=== PATIENT | male | born 1965 | race Two or more races ===

== ENCOUNTER 2019-07-17 18:14 | Inpatient (IN) | payer MEDICAID ==
[~2019-07-17] VITALS: Ht 188 cm; Wt 113.9 kg
[2019-07-17 18:33] VITALS: BP 121/71
--- NOTE | 2019-07-17 18:33 | NUR ---
ED Nurse Note: Patient came to ED from home c/o fever and chills since mid day yesterday. Patient AxO x 4, no s/s of acute distress noted.
--- NOTE | 2019-07-17 19:05 | NUR ---
ED Nurse Note: Handoff report given to Debbi ROCHA
--- NOTE | 2019-07-17 19:10 | NUR ---
ED Nurse Note: Pt received from AJ Vital. Pt is resting in bed at this time, does c/o chills. No other acute distress noted. Pt on cardiac cath lab radiology technologist, HR tachy, ERMD aware. Will continue to monitor.
--- NOTE | 2019-07-17 19:11 | Emergency Room Report ---
History of Present Illness General Chief Complaint: Flu Like Symptoms Source: Patient Present Illness HPI 54-year-old male history of diabetic foot recent surgery 3 weeks ago presents with cough, fever/chills x1 day no aggravating relieving factors severity is moderate, constant, patient feels short of breath and generalized weakness patient presents for evaluation Allergies: Coded Allergies: No Known Allergies (Unverified , 07/17/19) Patient History Past Medical History: see triage record Reviewed Nursing Documentation: PMH: Agreed; PSxH: Agreed Nursing Documentation-PMH Past Medical History: No History, Except For Hx Diabetes: Yes Review of Systems All Other Systems: negative except mentioned in HPI Physical Exam Vital Signs Date Time Temp Pulse Resp B/P (MAP) Pulse Ox O2 Delivery O2 Flow Rate FiO2 07/17/19 18:23 102.4 138 24 121/71 (88) 94 Room Air Sp02 EP Interpretation: reviewed, normal General Appearance: alert, moderate distress Head: normocephalic, atraumatic Eyes: bilateral eye PERRL, bilateral eye EOMI ENT: uvula midline, dry mucus membranes Neck: supple, thyroid normal, supple/symm/no masses Respiratory: lungs clear, no respiratory distress, no retraction, no accessory muscle use Cardiovascular #1: normal peripheral pulses, no edema, no gallop, no murmur, tachycardia Gastrointestinal: non tender, soft, no guarding, no rebound Musculoskeletal: normal inspection Neurologic: alert, oriented x3 Psychiatric: mood/affect normal Skin: no rash, warm/dry Procedures Critical Care Time Critical Care Time Given the critical condition in which the patient arrived, the patient was immediately assessed by myself and the nurse, and cardiac monitoring initiated due to the potential for rapid decompensation of the patient's clinical condition. During the course of the patient's stay, I spent a considerable amount of time at the bedside performing serial re-evaluations of the patient's hemodynamic and clinical status because of the recognized potential threat to life or limb in this condition. I then had a chance to review not only all of the available current laboratory and radiographic studies obtained today, but I also reviewed old records available to me at the time. Additionally, any ancillary information available including fiscal specialist records were reviewed. Sequential vital signs were obtained. Critical Care time of 37 minutes was performed exclusive of billable procedures. Medical Decision Making Diagnostic Impression: Primary Impression: Sepsis Qualified Codes: A41.9 - Sepsis, unspecified organism Additional Impression: Pneumonia Qualified Codes: J18.9 - Pneumonia, unspecified organism ER Course 54-year-old male presents with fever/chills x1 day differential diagnosis includes sepsis patient with a white count of 19 no known source, patient febrile tachycardic Fluid bolus given, broad-spectrum antibiotic started Patient will be admitted to telemetry for continued monitoring given his critical status Patient admitted to [facility] Laboratory Tests Test 07/17/19 18:50 07/17/19 19:20 07/17/19 21:00 07/17/19 21:05 White Blood Count 19.4 K/UL (4.8-10.8) H Red Blood Count 4.72 M/UL (4.70-6.10) Hemoglobin 13.3 G/DL (14.2-18.0) L Hematocrit 41.7 % (42.0-52.0) L Mean Corpuscular Volume 88 FL (80-99) Mean Corpuscular Hemoglobin 28.2 PG (27.0-31.0) Mean Corpuscular Hemoglobin Concent 32.0 G/DL (32.0-36.0) Red Cell Distribution Width 12.9 % (11.6-14.8) Platelet Count 268 K/UL (150-450) Mean Platelet Volume 7.2 FL (6.5-10.1) Neutrophils (%) (Auto) % (45.0-75.0) Lymphocytes (%) (Auto) % (20.0-45.0) Monocytes (%) (Auto) % (1.0-10.0) Eosinophils (%) (Auto) % (0.0-3.0) Basophils (%) (Auto) % (0.0-2.0) Differential Total Cells Counted 100 Neutrophils % (Manual) 92 % (45-75) H Lymphocytes % (Manual) 3 % (20-45) L Monocytes % (Manual) 5 % (1-10) Eosinophils % (Manual) 0 % (0-3) Basophils % (Manual) 0 % (0-2) Band Neutrophils 0 % (0-8) Platelet Estimate Adequate Platelet Morphology Normal Red Blood Cell Morphology Normal Prothrombin Time 10.7 SEC (9.30-11.50) Prothrombin Time INR 1.0 (0.9-1.1) Activated Partial Thromboplast Time 29 SEC (23-33) Sodium Level 136 MMOL/L (136-145) Potassium Level 4.6 MMOL/L (3.5-5.1) Chloride Level 99 MMOL/L (98-107) Carbon Dioxide Level 25 MMOL/L (21-32) Anion Gap 12 mmol/L (5-15) Blood Urea Nitrogen 26 mg/dL (7-18) H Creatinine 1.6 MG/DL (0.55-1.30) H Estimate Glomerular Filtration Rate 44.9 mL/min (>60) Glucose Level 271 MG/DL (74-106) H Calcium Level 9.0 MG/DL (8.5-10.1) Phosphorus Level 2.0 MG/DL (2.5-4.9) L Magnesium Level 1.5 MG/DL (1.8-2.4) L Total Bilirubin 1.1 MG/DL (0.2-1.0) H Direct Bilirubin 0.1 MG/DL (0.0-0.3) Aspartate Amino Transferase (AST) 16 U/L (15-37) Alanine Aminotransferase (ALT) 24 U/L (12-78) Alkaline Phosphatase 89 U/L (46-116) Total Creatine Kinase 155 U/L (26-308) Troponin I 0.000 ng/mL (0.000-0.056) Total Protein 8.1 G/DL (6.4-8.2) Albumin 3.7 G/DL (3.4-5.0) Globulin 4.4 g/dL Albumin/Globulin Ratio 0.8 (1.0-2.7) L Lipase 156 U/L (73-393) Lactic Acid Level 2.50 mmol/L (0.4-2.0) H 1.70 mmol/L (0.66-2.22) Urine Color Yellow Urine Appearance Slightly cloudy Urine pH 5 (4.5-8.0) Urine Specific [place] 1.020 (1.005-1.035) Urine Protein 3+ (NEGATIVE) H Urine Glucose (UA) 4+ (NEGATIVE) H Urine Ketones Negative (NEGATIVE) Urine Blood Negative (NEGATIVE) Urine Nitrite Negative (NEGATIVE) Urine Bilirubin Negative (NEGATIVE) Urine Urobilinogen Normal MG/DL (0.0-1.0) Urine Leukocyte Esterase Negative (NEGATIVE) Urine RBC 0 /HPF (0 - 0) Urine WBC 0-2 /HPF (0 - 0) Urine Squamous Epithelial Cells Occasional /LPF Urine Bacteria Few /HPF (NONE) Urine Mucus Moderate /LPF (NONE/OCC) H Microbiology Date/Time Source Procedure Growth Status 07/17/19 19:20 Nasal Nares - Final Complete 07/17/19 19:20 Nasal Nares - Final Complete EKG Diagnostic Results EKG Time: 19:14 EP Interpretation: Sinus tachycardia, rate 125, QTc 438, left axis deviation no acute ST eleva Rhythm Strip Diag. Results Rhythm Strip Time: 20:32 EP Interpretation: yes Rate: 116 Rhythm: other - sinus tachycardia Chest X-Ray Diagnostic Results Chest X-Ray Diagnostic Results : Chest X-Ray Ordered: Yes # of Views/Limited/Complete: 1 View Indication: Shortness of Breath EP Interpretation: Yes Interpretation: other - Possible left lower lobe infiltrate, poor lung volumes Impression: Other - Possible left lower lobe infiltrate, poor lung volumes Electronically Signed by: Scott Eason MD Other X-Ray Diagnostic Results Other X-Ray Diagnostic Results : X-Ray ordered: Right foot # of Views/Limited Vs Complete: 3 View Indication: Pain EP Interpretation: Yes Interpretation: no dislocation, no soft tissue swelling, no fractures, other - No gas Impression: No acute disease Electronically Signed by: Scott Eason MD Last Vital Signs Date Time Temp Pulse Resp B/P (MAP) Pulse Ox O2 Delivery O2 Flow Rate FiO2 07/17/19 18:23 102.4 138 24 121/71 (88) 94 Room Air Disposition: ADMITTED INPATIENT Condition: Serious Evaluation Current Stage of Sepsis: Sepsis Possible Source: Unknown Focused Exam Allergies: Coded Allergies: No Known Allergies (Unverified , 07/17/19) Date Exam Occurred: Jul 17, 2019 Time Exam Occurred: 20:34 Laboratory Studies Laboratory Tests Test 07/17/19 18:50 07/17/19 19:20 White Blood Count 19.4 K/UL (4.8-10.8) H Red Blood Count 4.72 M/UL (4.70-6.10) Hemoglobin 13.3 G/DL (14.2-18.0) L Hematocrit 41.7 % (42.0-52.0) L Mean Corpuscular Volume 88 FL (80-99) Mean Corpuscular Hemoglobin 28.2 PG (27.0-31.0) Mean Corpuscular Hemoglobin Concent 32.0 G/DL (32.0-36.0) Red Cell Distribution Width 12.9 % (11.6-14.8) Platelet Count 268 K/UL (150-450) Mean Platelet Volume 7.2 FL (6.5-10.1) Neutrophils (%) (Auto) % (45.0-75.0) Lymphocytes (%) (Auto) % (20.0-45.0) Monocytes (%) (Auto) % (1.0-10.0) Eosinophils (%) (Auto) % (0.0-3.0) Basophils (%) (Auto) % (0.0-2.0) Differential Total Cells Counted 100 Neutrophils % (Manual) 92 % (45-75) H Lymphocytes % (Manual) 3 % (20-45) L Monocytes % (Manual) 5 % (1-10) Eosinophils % (Manual) 0 % (0-3) Basophils % (Manual) 0 % (0-2) Band Neutrophils 0 % (0-8) Platelet Estimate Adequate Platelet Morphology Normal Red Blood Cell Morphology Normal Prothrombin Time 10.7 SEC (9.30-11.50) Prothromb Time International Ratio 1.0 (0.9-1.1) Activated Partial Thromboplast Time 29 SEC (23-33) Sodium Level 136 MMOL/L (136-145) Potassium Level 4.6 MMOL/L (3.5-5.1) Chloride Level 99 MMOL/L (98-107) Carbon Dioxide Level 25 MMOL/L (21-32) Anion Gap 12 mmol/L (5-15) Blood Urea Nitrogen 26 mg/dL (7-18) H Creatinine 1.6 MG/DL (0.55-1.30) H Estimat Glomerular Filtration Rate 44.9 mL/min (>60) Glucose Level 271 MG/DL (74-106) H Calcium Level 9.0 MG/DL (8.5-10.1) Phosphorus Level 2.0 MG/DL (2.5-4.9) L Magnesium Level 1.5 MG/DL (1.8-2.4) L Total Bilirubin 1.1 MG/DL (0.2-1.0) H Direct Bilirubin 0.1 MG/DL (0.0-0.3) Aspartate Amino Transf (AST/SGOT) 16 U/L (15-37) Alanine Aminotransferase (ALT/SGPT) 24 U/L (12-78) Alkaline Phosphatase 89 U/L (46-116) Total Creatine Kinase 155 U/L (26-308) Troponin I 0.000 ng/mL (0.000-0.056) Total Protein 8.1 G/DL (6.4-8.2) Albumin 3.7 G/DL (3.4-5.0) Globulin 4.4 g/dL Albumin/Globulin Ratio 0.8 (1.0-2.7) L Lipase 156 U/L (73-393) Lactic Acid Level 2.50 mmol/L (0.4-2.0) H Vital Signs Last 24 Hour Vital Signs Date Time Temp Pulse Resp B/P (MAP) Pulse Ox O2 Delivery O2 Flow Rate FiO2 07/17/19 18:33 128 24 Room Air 07/17/19 18:33 102.4 123 24 121/71 94 Room Air 07/17/19 18:23 102.4 138 24 121/71 (88) 94 Room Air Respiratory Exam: CTA Bilaterally Cardiovascular Exam: S1, S2, Tachycardia Capillary Refill: Less Than 2 Seconds Peripheral Pulse: Strong Pulse Location: Radial Scott Eason MD Jul 17, 2019 19:11
[2019-07-17] MEDS ORDERED: Piperacillin/Tazobactam 3.375 GM in NS 110 ML IVPB ONE (19:15)
[2019-07-17 19:34] LABS: HEMATOCRIT 41.7 % (42.0-52.0); HEMOGLOBIN 13.3 G/DL (14.2-18.0); MEAN CORPUSCULAR VOLUME 88 FL (80-99); PLATELET COUNT 268 K/UL (150-450); RED BLOOD COUNT 4.72 M/UL (4.70-6.10); RED CELL DISTRIBUTION WIDTH 12.9 % (11.6-14.8); WHITE BLOOD COUNT 19.4 K/UL (4.8-10.8)
[2019-07-17 19:44] LABS: ANION GAP 12 mmol/L (5-15); BLOOD UREA NITROGEN 26 mg/dL (7-18); CARBON DIOXIDE 25 MMOL/L (21-32); CHLORIDE 99 MMOL/L (98-107); CREATININE 1.6 MG/DL (0.55-1.30); POTASSIUM 4.6 MMOL/L (3.5-5.1); SODIUM 136 MMOL/L (136-145)
[2019-07-17 19:54] LABS: ALANINE AMINOTRANSFERASE 24 U/L (12-78); ALBUMIN 3.7 G/DL (3.4-5.0); ALBUMIN/GLOBULIN RATIO 0.8 (1.0-2.7); ALKALINE PHOSPHATASE 89 U/L (46-116); ASPARTATE AMINO TRANSFERASE 16 U/L (15-37); BILIRUBIN,TOTAL 1.1 MG/DL (0.2-1.0); CREATINE KINASE 155 U/L (26-308)
--- NOTE | 2019-07-17 20:00 | NUR ---
ED Nurse Note: R big toe amputation noted.
[2019-07-17 20:05] LABS: BILIRUBIN,DIRECT 0.1 MG/DL (0.0-0.3)
--- NOTE | 2019-07-17 20:42 | NUR ---
ED Nurse Note: Repeat lactic drawn by RN and sent to lab.
[2019-07-17] MEDS ORDERED: Vancomycin 1.5 GM in NS 275 ML IVPB ONE (20:45)
[2019-07-17 21:31] LABS: APPEARANCE,URINE SLIGHTLY CLOUDY; BILIRUBIN, URINE NEGATIVE (NEGATIVE); GLUCOSE, URINE (UA) 4+ (NEGATIVE); KETONES,URINE NEGATIVE (NEGATIVE); LEUKOCYTE ESTERASE ,URINE NEGATIVE (NEGATIVE); NITRITE,URINE NEGATIVE (NEGATIVE); PH,URINE 5 (4.5-8.0); PROTEIN,URINE 3+ (NEGATIVE); UROBILINOGEN,URINE NORMAL MG/DL (0.0-1.0)
[2019-07-17 21:33] LABS: COLOR,URINE YELLOW
[2019-07-17 23:20] VITALS: BP 157/81
--- NOTE | 2019-07-17 23:20 | NUR ---
ED Nurse Note: Pt awake and alert. Pt able to stand from bed and use urinal at bedside. No acute distress noted. Will continue to monitor.
--- NOTE | 2019-07-17 23:20 | NUR ---
ED Nurse Note: GISELAD aware of pt elevated temperature of 102.6F. Will carry out medication order for tylenol.
[2019-07-17] MEDS ORDERED: Milk of Magnesia 30ml Ud ORAL PRN (23:30)
[2019-07-17] MEDS ORDERED: LORazepam 1mg tab ORAL PRN (23:30)
[2019-07-17] MEDS ORDERED: HYDROmorphone 1mg/ml Carpuject IVP PRN (23:30)
[2019-07-17] MEDS ORDERED: Albuterol/Ipratropium 3ml neb HHN PRN (23:30)
[2019-07-17] MEDS ORDERED: Acetaminophen 500mg (ES) tab ORAL ONE ×2 (23:33→23:45)
[2019-07-17] MEDS ORDERED: LOSARTAN POTASS50 MG ORAL (23:57)
[2019-07-17] MEDS ORDERED: GLIPIZIDE5 MG ORAL (23:57)
[2019-07-17] MEDS ORDERED: METFORMIN HCL1000 M1 ORAL (23:57)
[2019-07-17] MEDS ORDERED: ATORVASTATIN CA40 MG ORAL (23:57)
[2019-07-17] MEDS ORDERED: FLOMAX0.4 MG ORAL (23:57)
[2019-07-18] VITALS (9 sets, daily range): BP systolic 109–180; BP diastolic 56–91
--- NOTE | 2019-07-18 01:00 | NUR ---
ED Nurse Note: Pt sleeping at this time. No acute distress noted. Will continue to monitor.
--- NOTE | 2019-07-18 03:14 | NUR ---
ED Nurse Note: Pt medications locked in med box in ER medication room and receipt for bags attached to belongings list.
--- NOTE | 2019-07-18 04:30 | NUR ---
ED Nurse Note: Pt VSS. No acute distress noted. Pt got out of bed without assistance while connected to shirt finisher to use urinal and pulled out IV on L arm. Pt instructed to call for assistance when getting out of bed. Will continue to monitor, restablish IV and fluids.
--- NOTE | 2019-07-18 06:05 | NUR ---
ED Nurse Note: Pt sleeping at this time, no acute distress noted. Will continue to monitor. Awaiting on bed.
--- NOTE | 2019-07-18 06:25 | NUR ---
ED Nurse Note: Attempted to call admitting physician regarding patient elevated BP. Physician did not answer, message left with Kyle who stated that he will relay the message and have admitting doctor call back.
[2019-07-18] MEDS: NovoLOG Insulin Flexpen SUBQ SCH ×4 (06:30→20:35)
--- NOTE | 2019-07-18 07:10 | NUR ---
HAND-OFF: Report given to AJ James and endorsed plan of care.
--- NOTE | 2019-07-18 07:39 | NUR ---
ED Nurse Note: AM labs sent
[2019-07-18 07:48] LABS: HEMATOCRIT 36.9 % (42.0-52.0); HEMOGLOBIN 12.9 G/DL (14.2-18.0); MEAN CORPUSCULAR VOLUME 84 FL (80-99); PLATELET COUNT 238 K/UL (150-450); RED CELL DISTRIBUTION WIDTH 12.3 % (11.6-14.8); WHITE BLOOD COUNT 14.1 K/UL (4.8-10.8)
--- NOTE | 2019-07-18 07:49 | NUR ---
ED Nurse Note: telephone report given to candida rojo for continuity of care
--- NOTE | 2019-07-18 07:51 | NUR ---
NURSE NOTES: Report received from AJ Carrizales in the ED. Patient not arrived to the floor yet.
[2019-07-18 08:11] LABS: ANION GAP 10 mmol/L (5-15); BLOOD UREA NITROGEN 16 mg/dL (7-18); CALCIUM 8.2 MG/DL (8.5-10.1); CARBON DIOXIDE 23 MMOL/L (21-32); CHLORIDE 103 MMOL/L (98-107); CREATININE 1.2 MG/DL (0.55-1.30); SODIUM 136 MMOL/L (136-145)
--- NOTE | 2019-07-18 08:20 | NUR ---
TRANSFER TO FLOOR: Patient transferred to TELE as ordered, per ERMD ORDER . Report given to AJ FERNANDES. Belongings and medications given to AJ Fernandes.
--- NOTE | 2019-07-18 08:30 | NUR ---
NURSE NOTES: Patient arrived to the floor, belongings list updated and placed in the chart. Patient is alert and oriented and able to make needs known, no acute sings of distress noted. Patient vitals are stable BP a little elevated at 162/103 and temperature elevated at 101.7. patient placed on school bus monitor and oriented to room and call light, patient requested a shower, explained that patient cannot take a shower as the heart monitor must remain on the patient. informed patient I will bring cleaning supplies for a sponge bath. will continue to monitor patient.
[2019-07-18] MEDS ORDERED: Azithromycin 500 MG in D5W 275 ML IV SCH (09:00)
[2019-07-18] MEDS ORDERED: Vancomycin 1gm/D5W 275ml IVPB SCH ×2 (10:00)
[2019-07-18] MEDS: Oseltamivir 75mg cap ORAL SCH ×2 (10:10→20:34)
[2019-07-18] MEDS: Enoxaparin 40mg Inj SUBQ SCH (10:10)
--- NOTE | 2019-07-18 10:16 | NUR ---
NURSE NOTES: withdrew the Dilaudid for patient as patient stated he was having pain 12/14. went to administer the medication and patient stated he did not want to take a narcotic medication. I gave tylenol for fever and patient said this should be sufficient for his pain also. will inform charge entry specialist and waste dilaudid.
--- NOTE | 2019-07-18 11:12 | History and Physical ---
History of Present Illness General Date patient seen: Jul 18, 2019 Reason for Hospitalization: Flu Like Symptoms Present Illness HPI 54-year-old male, with diabetes presents with cough, fever/chills x1 day. Patient recently travelled from [place]. He also has shortness of breath. Denies chest pain, or palpitations. Has a lot of myalgias and thinks he has the flu. He has DM, on oral meds, hld and HTN. He had an amputation of 1st big left toe, and recent planta infection that has healed past medical history: HTN, HLD, DM uncontrolled, BPH past surgical history: 1st big toe left foot amputated social history: Denies toxic habits family history: DM Allergies: Coded Allergies: No Known Allergies (Unverified , 07/17/19) Medication History Scheduled Atorvastatin Calcium* (Atorvastatin Calcium*), 40 MG ORAL BEDTIME, (Reported) Glipizide* (Glipizide*), 10 MG ORAL BIDAC, (Reported) Losartan Potassium* (Losartan Potassium*), 100 MG ORAL DAILY, (Reported) Metformin Hcl* (Metformin Hcl*), 1,000 MG ORAL DAILY, (Reported) Tamsulosin HCl (Flomax), 0.4 MG ORAL DAILY, (Reported) Patient History Healthcare decision maker Resuscitation status Full Code Advanced Directive on File Review of Systems Constitutional: Reports: chills, fever, malaise, weakness Eye: Denies: no symptoms, see HPI, eye pain, blurred vision, tearing, double vision, nose pain, nose congestion, acuity changes, discharge, other ENT: Denies: no symptoms, see HPI, ear pain, ear discharge, nose pain, nose congestion, throat pain, throat swelling, mouth pain, hearing loss, nasal discharge, other Respiratory: Reports: cough, shortness of breath Cardiovascular: Denies: no symptoms, see HPI, chest pain, edema, palpitations, syncope, PND, other Gastrointestinal: Denies: no symptoms, see HPI, abdominal pain, constipation, diarrhea, nausea, vomiting, melena, hematemesis, other Genitourinary: Denies: no symptoms, see HPI, discharge, dysuria, frequency, hematuria, pain, retention, incontinence, urgency, vag bleed/dc, other Musculoskeletal: Reports: muscle pain Skin: Denies: no symptoms, see HPI, rash, change in color, change in hair/nails , dryness, lesions, other Psychiatric: Denies: no symptoms, see HPI, prior hx, anxiety, depressed feelings, emotional problems, SI, HI, hallucinations, other Neurological: Denies: no symptoms, see HPI, headache, numbness, paresthesia, seizure, tingling, tremors, focal weakness, syncope, dizziness, other Endocrine: Denies: no symptoms, see HPI, excessive sweating, flushing, intolerance to temperature, increased thirst, increased urine, unexplained weight loss, other Hematologic/Lymphatic: Denies: no symptoms, see HPI, anemia, blood clots, easy bleeding, easy bruising, swollen glands, diathesis, other Physical Exam Physical Exam Narrative General Appearance: alert, moderate distress Head: normocephalic, atraumatic Eyes: bilateral eye PERRL, bilateral eye EOMI ENT: uvula midline, dry mucus membranes Neck: supple, thyroid normal, supple/symm/no masses Respiratory: lungs clear, no respiratory distress, no retraction, no accessory muscle use Cardiovascular : Tachycardia, no edema, no gallop, no murmur, tachycardia Gastrointestinal: non tender, soft, no guarding, no rebound Musculoskeletal: normal inspection, EXT: 1st big left toe amputation, healed, planta ulcer left foot, not fluctuant, dry Neurologic: alert, oriented x3 Skin: no rash, warm/dry Last 24 Hour Vital Signs Date Time Temp Pulse Resp B/P (MAP) Pulse Ox O2 Delivery O2 Flow Rate FiO2 07/18/19 08:31 98.6 119 22 161/83 97 Room Air 07/18/19 07:05 98.5 120 25 168/91 98 Room Air 07/18/19 06:05 98.2 117 23 180/88 98 Room Air 07/18/19 04:30 98.2 111 24 148/88 99 Room Air 07/18/19 03:00 98.2 110 22 119/63 99 Room Air 07/18/19 02:00 98.2 130 24 109/56 99 Room Air 07/18/19 00:40 98.2 125 24 166/78 97 Room Air 07/18/19 00:07 98.2 07/17/19 23:20 102.6 130 21 157/81 97 Room Air 07/17/19 18:33 128 24 Room Air 07/17/19 18:33 102.4 123 24 121/71 94 Room Air 07/17/19 18:23 102.4 138 24 121/71 (88) 94 Room Air Intake and Output 07/17/19 07/18/19 19:00 07:00 Intake Total 0 ml Balance 0 ml Intake Oral 0 ml Laboratory Tests Test 07/17/19 18:50 07/17/19 19:20 07/17/19 21:00 07/17/19 21:05 White Blood Count 19.4 K/UL (4.8-10.8) H Red Blood Count 4.72 M/UL (4.70-6.10) Hemoglobin 13.3 G/DL (14.2-18.0) L Hematocrit 41.7 % (42.0-52.0) L Mean Corpuscular Volume 88 FL (80-99) Mean Corpuscular Hemoglobin 28.2 PG (27.0-31.0) Mean Corpuscular Hemoglobin Concent 32.0 G/DL (32.0-36.0) Red Cell Distribution Width 12.9 % (11.6-14.8) Platelet Count 268 K/UL (150-450) Mean Platelet Volume 7.2 FL (6.5-10.1) Neutrophils (%) (Auto) % (45.0-75.0) Lymphocytes (%) (Auto) % (20.0-45.0) Monocytes (%) (Auto) % (1.0-10.0) Eosinophils (%) (Auto) % (0.0-3.0) Basophils (%) (Auto) % (0.0-2.0) Differential Total Cells Counted 100 Neutrophils % (Manual) 92 % (45-75) H Lymphocytes % (Manual) 3 % (20-45) L Monocytes % (Manual) 5 % (1-10) Eosinophils % (Manual) 0 % (0-3) Basophils % (Manual) 0 % (0-2) Band Neutrophils 0 % (0-8) Platelet Estimate Adequate Platelet Morphology Normal Red Blood Cell Morphology Normal Prothrombin Time 10.7 SEC (9.30-11.50) Prothromb Time International Ratio 1.0 (0.9-1.1) Activated Partial Thromboplast Time 29 SEC (23-33) Sodium Level 136 MMOL/L (136-145) Potassium Level 4.6 MMOL/L (3.5-5.1) Chloride Level 99 MMOL/L (98-107) Carbon Dioxide Level 25 MMOL/L (21-32) Anion Gap 12 mmol/L (5-15) Blood Urea Nitrogen 26 mg/dL (7-18) H Creatinine 1.6 MG/DL (0.55-1.30) H Estimat Glomerular Filtration Rate 44.9 mL/min (>60) Glucose Level 271 MG/DL (74-106) H Calcium Level 9.0 MG/DL (8.5-10.1) Phosphorus Level 2.0 MG/DL (2.5-4.9) L Magnesium Level 1.5 MG/DL (1.8-2.4) L Total Bilirubin 1.1 MG/DL (0.2-1.0) H Direct Bilirubin 0.1 MG/DL (0.0-0.3) Aspartate Amino Transf (AST/SGOT) 16 U/L (15-37) Alanine Aminotransferase (ALT/SGPT) 24 U/L (12-78) Alkaline Phosphatase 89 U/L (46-116) Total Creatine Kinase 155 U/L (26-308) Troponin I 0.000 ng/mL (0.000-0.056) Total Protein 8.1 G/DL (6.4-8.2) Albumin 3.7 G/DL (3.4-5.0) Globulin 4.4 g/dL Albumin/Globulin Ratio 0.8 (1.0-2.7) L Lipase 156 U/L (73-393) Lactic Acid Level 2.50 mmol/L (0.4-2.0) H 1.70 mmol/L (0.66-2.22) Urine Color Yellow Urine Appearance Slightly cloudy Urine pH 5 (4.5-8.0) Urine Specific [place] 1.020 (1.005-1.035) Urine Protein 3+ (NEGATIVE) H Urine Glucose (UA) 4+ (NEGATIVE) H Urine Ketones Negative (NEGATIVE) Urine Blood Negative (NEGATIVE) Urine Nitrite Negative (NEGATIVE) Urine Bilirubin Negative (NEGATIVE) Urine Urobilinogen Normal MG/DL (0.0-1.0) Urine Leukocyte Esterase Negative (NEGATIVE) Urine RBC 0 /HPF (0 - 0) Urine WBC 0-2 /HPF (0 - 0) Urine Squamous Epithelial Cells Occasional /LPF Urine Bacteria Few /HPF (NONE) Urine Mucus Moderate /LPF (NONE/OCC) H Test 07/18/19 07:35 White Blood Count 14.1 K/UL (4.8-10.8) H Red Blood Count 4.40 M/UL (4.70-6.10) L Hemoglobin 12.9 G/DL (14.2-18.0) L Hematocrit 36.9 % (42.0-52.0) L Mean Corpuscular Volume 84 FL (80-99) Mean Corpuscular Hemoglobin 29.3 PG (27.0-31.0) Mean Corpuscular Hemoglobin Concent 35.0 G/DL (32.0-36.0) Red Cell Distribution Width 12.3 % (11.6-14.8) Platelet Count 238 K/UL (150-450) Mean Platelet Volume 6.2 FL (6.5-10.1) L Neutrophils (%) (Auto) % (45.0-75.0) Lymphocytes (%) (Auto) % (20.0-45.0) Monocytes (%) (Auto) % (1.0-10.0) Eosinophils (%) (Auto) % (0.0-3.0) Basophils (%) (Auto) % (0.0-2.0) Differential Total Cells Counted 100 Neutrophils % (Manual) 91 % (45-75) H Lymphocytes % (Manual) 4 % (20-45) L Monocytes % (Manual) 4 % (1-10) Eosinophils % (Manual) 1 % (0-3) Basophils % (Manual) 0 % (0-2) Band Neutrophils 0 % (0-8) Platelet Estimate Adequate Platelet Morphology Normal Red Blood Cell Morphology Normal Sodium Level 136 MMOL/L (136-145) Potassium Level 4.0 MMOL/L (3.5-5.1) Chloride Level 103 MMOL/L (98-107) Carbon Dioxide Level 23 MMOL/L (21-32) Anion Gap 10 mmol/L (5-15) Blood Urea Nitrogen 16 mg/dL (7-18) Creatinine 1.2 MG/DL (0.55-1.30) Estimat Glomerular Filtration Rate > 60 mL/min (>60) Glucose Level 240 MG/DL (74-106) H Hemoglobin A1c 9.7 % (4.3-6.0) H Calcium Level 8.2 MG/DL (8.5-10.1) L Pro-B-Type Natriuretic Peptide 473 pg/mL (0-125) H Microbiology Date/Time Source Procedure Growth Status 07/17/19 19: Nasal Nares - Final Complete 07/17/19 19: Nasal Nares - Final Complete Height (Feet): 6 Height (Inches): 2.00 Weight (Pounds): 251 Medications Current Medications Medications (Trade) Dose Ordered Sig/Gaurav Route PRN Reason Start Time Stop Time Status Last Admin Dose Admin Acetaminophen (Tylenol) 650 mg Q4H PRN ORAL Mild Pain (Pain Scale 1-3) 07/17/19 23:30 08/16/19 23:29 Acetaminophen (Tylenol) 650 mg Q4H PRN ORAL fever 07/17/19 23:30 08/16/19 23:29 Albuterol/ Ipratropium (Albuterol/ Ipratropium) 3 ml Q4H PRN HHN Shortness of Breath 07/17/19 23:30 07/22/19 23:29 Azithromycin 500 mg/Dextrose 275 ml @ 275 mls/hr Q24HRS IV 07/18/19 09:00 07/24/19 09:59 07/18/19 10:10 Dextrose (Dextrose 50%) 25 ml Q30M PRN IV Hypoglycemia 07/17/19 23:30 08/16/19 23:29 Dextrose (Dextrose 50%) 50 ml Q30M PRN IV Hypoglycemia 07/17/19 23:30 08/16/19 23:29 Enoxaparin Sodium (Lovenox) 40 mg Q24H SUBQ 07/18/19 09:00 08/17/19 08:59 07/18/19 10:10 Hydralazine HCl (Apresoline) 10 mg Q8HR PRN IV SBP 07/18/19 10:15 08/17/19 10:14 UNV Hydromorphone HCl (Dilaudid) 1 mg Q4H PRN IVP Moderate Pain (Pain Scale 4-6) 07/17/19 23:30 07/24/19 23:29 Hydromorphone HCl (Dilaudid) 2 mg Q4H PRN IVP Severe Pain (Pain Scale 7-10) 07/17/19 23:30 07/24/19 23:29 Insulin Aspart (NovoLOG) BEFORE MEALS AND HS SUBQ 07/18/19 06:30 08/17/19 06:29 Lorazepam (Ativan) 1 mg Q4H PRN ORAL For Anxiety 07/17/19 23:30 07/24/19 23:29 Magnesium Hydroxide (Mom) 30 ml HSPRN PRN ORAL Constipation 07/17/19 23:30 08/16/19 23:29 Ondansetron HCl (Zofran) 4 mg Q6H PRN IVP Nausea & Vomiting 07/17/19 23:30 08/16/19 23:29 Oseltamivir Phosphate (Tamiflu) 75 mg Q12HR ORAL 07/18/19 09:00 07/23/19 08:59 07/18/19 10:10 Piperacillin Sod/ Tazobactam Sod 3.375 gm/Sodium Chloride 110 ml @ 27.5 mls/hr Q8HR IVPB 07/18/19 14:00 07/25/19 13:59 Sodium Chloride 1,000 ml @ 75 mls/hr [id number] IV 07/18/19 10:15 08/17/19 10:14 07/18/19 10:34 Sodium Chloride 1,000 ml @ 100 mls/hr Q10H IVLG 07/18/19 03:00 08/17/19 02:59 07/18/19 03:42 Vancomycin HCl (Vanco rx to dose) 1 ea DAILY PRN MISC Per rx protocol 07/17/19 23:30 08/16/19 23:29 Vancomycin HCl 1 gm/Dextrose 275 ml @ 183.708 mls/hr Q12H IVPB 07/18/19 10:00 07/23/19 09:59 Objective Narrative EKG as personally interpreted by me: sinus tachycardia 125 bpm, left anterior fascicular block CXR: chf, (official read is pending) Left foot XR: official read pending Assessment/Plan Problem List: (1) Severe sepsis ICD Codes: A41.9 - Sepsis, unspecified organism; R65.20 - Severe sepsis without septic shock SNOMED: 00029474 (2) Pneumonia ICD Codes: J18.9 - Pneumonia, unspecified organism SNOMED: 085126004 Qualifiers: Qualified Codes: J18.9 - Pneumonia, unspecified organism (3) ALFONSO (acute kidney injury) ICD Codes: N17.9 - Acute kidney failure, unspecified SNOMED: 5162210, 26050999 (4) Uncontrolled type 2 DM with peripheral circulatory disorder ICD Codes: E11.51 - Type 2 diabetes mellitus with diabetic peripheral angiopathy without gangrene; E11.65 - Type 2 diabetes mellitus with hyperglycemia SNOMED: 41985505, 443634236, 369737508 Status: stable Assessment/Plan: 54-year-old male with uncontrolled diabetes presented with shortness of breath, fever, chills, myalgias. #Severe sepsis secondary to pneumonia cannot rule out influenza, even though flu swab is negative Judicious hydration due to vascular congestion seen on chest x-ray Antibiotics IV Zosyn, vancomycin, azithromycin, Tamiflu. All antibiotics renal dose ID consult #ALFONSO versus ALFONSO on CKD Monitor renal function avoid nephrotoxic medications Hold Losartan #Uncontrolled diabetes with history of left first toe amputation Hold home Metformin and glipizide check hba1c insulin sliding scale add basal coverage once eating. #HTN #HLD #?CHF, elevated bnp hold losartan continue statin bp control with hydralazine prn 2D echocardiogram cardiology consult I spent 70 minutes on this encounter. Greater than 50% spent on cousnelling and care coordination. plan of care d/w patient, consultants and RN. Nelson Anderson M.D. Jul 18, 2019 11:11
--- NOTE | 2019-07-18 11:19 | Cardiac Electrophysiology PN ---
Subjective Subjective [id number] Objective Last 24 Hour Vital Signs Date Time Temp Pulse Resp B/P (MAP) Pulse Ox O2 Delivery O2 Flow Rate FiO2 07/18/19 09:43 Room Air 07/18/19 08:31 98.6 119 22 161/83 97 Room Air 07/18/19 07:05 98.5 120 25 168/91 98 Room Air 07/18/19 06:05 98.2 117 23 180/88 98 Room Air 07/18/19 04:30 98.2 111 24 148/88 99 Room Air 07/18/19 03:00 98.2 110 22 119/63 99 Room Air 07/18/19 02:00 98.2 130 24 109/56 99 Room Air 07/18/19 00:40 98.2 125 24 166/78 97 Room Air 07/18/19 00:07 98.2 07/17/19 23:20 102.6 130 21 157/81 97 Room Air 07/17/19 18:33 128 24 Room Air 07/17/19 18:33 102.4 123 24 121/71 94 Room Air 07/17/19 18:23 102.4 138 24 121/71 (88) 94 Room Air Intake and Output 07/17/19 07/18/19 19:00 07:00 Intake Total 0 ml Balance 0 ml Intake Oral 0 ml Laboratory Tests Test 07/17/19 18:50 07/17/19 19:20 07/17/19 21:00 07/17/19 21:05 White Blood Count 19.4 K/UL (4.8-10.8) H Red Blood Count 4.72 M/UL (4.70-6.10) Hemoglobin 13.3 G/DL (14.2-18.0) L Hematocrit 41.7 % (42.0-52.0) L Mean Corpuscular Volume 88 FL (80-99) Mean Corpuscular Hemoglobin 28.2 PG (27.0-31.0) Mean Corpuscular Hemoglobin Concent 32.0 G/DL (32.0-36.0) Red Cell Distribution Width 12.9 % (11.6-14.8) Platelet Count 268 K/UL (150-450) Mean Platelet Volume 7.2 FL (6.5-10.1) Neutrophils (%) (Auto) % (45.0-75.0) Lymphocytes (%) (Auto) % (20.0-45.0) Monocytes (%) (Auto) % (1.0-10.0) Eosinophils (%) (Auto) % (0.0-3.0) Basophils (%) (Auto) % (0.0-2.0) Differential Total Cells Counted 100 Neutrophils % (Manual) 92 % (45-75) H Lymphocytes % (Manual) 3 % (20-45) L Monocytes % (Manual) 5 % (1-10) Eosinophils % (Manual) 0 % (0-3) Basophils % (Manual) 0 % (0-2) Band Neutrophils 0 % (0-8) Platelet Estimate Adequate Platelet Morphology Normal Red Blood Cell Morphology Normal Prothrombin Time 10.7 SEC (9.30-11.50) Prothromb Time International Ratio 1.0 (0.9-1.1) Activated Partial Thromboplast Time 29 SEC (23-33) Sodium Level 136 MMOL/L (136-145) Potassium Level 4.6 MMOL/L (3.5-5.1) Chloride Level 99 MMOL/L (98-107) Carbon Dioxide Level 25 MMOL/L (21-32) Anion Gap 12 mmol/L (5-15) Blood Urea Nitrogen 26 mg/dL (7-18) H Creatinine 1.6 MG/DL (0.55-1.30) H Estimat Glomerular Filtration Rate 44.9 mL/min (>60) Glucose Level 271 MG/DL (74-106) H Calcium Level 9.0 MG/DL (8.5-10.1) Phosphorus Level 2.0 MG/DL (2.5-4.9) L Magnesium Level 1.5 MG/DL (1.8-2.4) L Total Bilirubin 1.1 MG/DL (0.2-1.0) H Direct Bilirubin 0.1 MG/DL (0.0-0.3) Aspartate Amino Transf (AST/SGOT) 16 U/L (15-37) Alanine Aminotransferase (ALT/SGPT) 24 U/L (12-78) Alkaline Phosphatase 89 U/L (46-116) Total Creatine Kinase 155 U/L (26-308) Troponin I 0.000 ng/mL (0.000-0.056) Total Protein 8.1 G/DL (6.4-8.2) Albumin 3.7 G/DL (3.4-5.0) Globulin 4.4 g/dL Albumin/Globulin Ratio 0.8 (1.0-2.7) L Lipase 156 U/L (73-393) Lactic Acid Level 2.50 mmol/L (0.4-2.0) H 1.70 mmol/L (0.66-2.22) Urine Color Yellow Urine Appearance Slightly cloudy Urine pH 5 (4.5-8.0) Urine Specific [place] 1.020 (1.005-1.035) Urine Protein 3+ (NEGATIVE) H Urine Glucose (UA) 4+ (NEGATIVE) H Urine Ketones Negative (NEGATIVE) Urine Blood Negative (NEGATIVE) Urine Nitrite Negative (NEGATIVE) Urine Bilirubin Negative (NEGATIVE) Urine Urobilinogen Normal MG/DL (0.0-1.0) Urine Leukocyte Esterase Negative (NEGATIVE) Urine RBC 0 /HPF (0 - 0) Urine WBC 0-2 /HPF (0 - 0) Urine Squamous Epithelial Cells Occasional /LPF Urine Bacteria Few /HPF (NONE) Urine Mucus Moderate /LPF (NONE/OCC) H Test 07/18/19 07:35 White Blood Count 14.1 K/UL (4.8-10.8) H Red Blood Count 4.40 M/UL (4.70-6.10) L Hemoglobin 12.9 G/DL (14.2-18.0) L Hematocrit 36.9 % (42.0-52.0) L Mean Corpuscular Volume 84 FL (80-99) Mean Corpuscular Hemoglobin 29.3 PG (27.0-31.0) Mean Corpuscular Hemoglobin Concent 35.0 G/DL (32.0-36.0) Red Cell Distribution Width 12.3 % (11.6-14.8) Platelet Count 238 K/UL (150-450) Mean Platelet Volume 6.2 FL (6.5-10.1) L Neutrophils (%) (Auto) % (45.0-75.0) Lymphocytes (%) (Auto) % (20.0-45.0) Monocytes (%) (Auto) % (1.0-10.0) Eosinophils (%) (Auto) % (0.0-3.0) Basophils (%) (Auto) % (0.0-2.0) Differential Total Cells Counted 100 Neutrophils % (Manual) 91 % (45-75) H Lymphocytes % (Manual) 4 % (20-45) L Monocytes % (Manual) 4 % (1-10) Eosinophils % (Manual) 1 % (0-3) Basophils % (Manual) 0 % (0-2) Band Neutrophils 0 % (0-8) Platelet Estimate Adequate Platelet Morphology Normal Red Blood Cell Morphology Normal Sodium Level 136 MMOL/L (136-145) Potassium Level 4.0 MMOL/L (3.5-5.1) Chloride Level 103 MMOL/L (98-107) Carbon Dioxide Level 23 MMOL/L (21-32) Anion Gap 10 mmol/L (5-15) Blood Urea Nitrogen 16 mg/dL (7-18) Creatinine 1.2 MG/DL (0.55-1.30) Estimat Glomerular Filtration Rate > 60 mL/min (>60) Glucose Level 240 MG/DL (74-106) H Hemoglobin A1c 9.7 % (4.3-6.0) H Calcium Level 8.2 MG/DL (8.5-10.1) L Pro-B-Type Natriuretic Peptide 473 pg/mL (0-125) H Microbiology Date/Time Source Procedure Growth Status 07/17/19 19:20 Nasal Nares - Final Complete 07/17/19 19:20 Nasal Nares - Final Complete Flash Rehman MD Jul 18, 2019 11:19
--- NOTE | 2019-07-18 11:37 | Infectious Diseases Prog Note ---
Assessment/Plan Assessment/Plan Full consult dictated: A) 1. sepsis, possible cap, fevers, leukocytosis 2. check cultures, labs and chest x-ray 3. allergies - nkda P) 1. vancomycin, azithromycin, zosyn 2. check cultures, labs and chest x-ray 3. thank you Subjective Allergies: Coded Allergies: No Known Allergies (Unverified , 07/17/19) Objective Vital Signs Last 24 Hour Vital Signs Date Time Temp Pulse Resp B/P (MAP) Pulse Ox O2 Delivery O2 Flow Rate FiO2 07/18/19 09:43 Room Air 07/18/19 08:31 98.6 119 22 161/83 97 Room Air 07/18/19 07:05 98.5 120 25 168/91 98 Room Air 07/18/19 06:05 98.2 117 23 180/88 98 Room Air 07/18/19 04:30 98.2 111 24 148/88 99 Room Air 07/18/19 03:00 98.2 110 22 119/63 99 Room Air 07/18/19 02:00 98.2 130 24 109/56 99 Room Air 07/18/19 00:40 98.2 125 24 166/78 97 Room Air 07/18/19 00:07 98.2 07/17/19 23:20 102.6 130 21 157/81 97 Room Air 07/17/19 18:33 128 24 Room Air 07/17/19 18:33 102.4 123 24 121/71 94 Room Air 07/17/19 18:23 102.4 138 24 121/71 (88) 94 Room Air Height (Feet): 6 Height (Inches): 2.00 Weight (Pounds): 251 Microbiology Date/Time Source Procedure Growth Status 07/17/19 19:20 Nasal Nares - Final Complete 07/17/19 19:20 Nasal Nares - Final Complete Laboratory Tests Test 07/17/19 18:50 07/17/19 19:20 07/17/19 21:00 07/17/19 21:05 White Blood Count 19.4 K/UL (4.8-10.8) H Red Blood Count 4.72 M/UL (4.70-6.10) Hemoglobin 13.3 G/DL (14.2-18.0) L Hematocrit 41.7 % (42.0-52.0) L Mean Corpuscular Volume 88 FL (80-99) Mean Corpuscular Hemoglobin 28.2 PG (27.0-31.0) Mean Corpuscular Hemoglobin Concent 32.0 G/DL (32.0-36.0) Red Cell Distribution Width 12.9 % (11.6-14.8) Platelet Count 268 K/UL (150-450) Mean Platelet Volume 7.2 FL (6.5-10.1) Neutrophils (%) (Auto) % (45.0-75.0) Lymphocytes (%) (Auto) % (20.0-45.0) Monocytes (%) (Auto) % (1.0-10.0) Eosinophils (%) (Auto) % (0.0-3.0) Basophils (%) (Auto) % (0.0-2.0) Differential Total Cells Counted 100 Neutrophils % (Manual) 92 % (45-75) H Lymphocytes % (Manual) 3 % (20-45) L Monocytes % (Manual) 5 % (1-10) Eosinophils % (Manual) 0 % (0-3) Basophils % (Manual) 0 % (0-2) Band Neutrophils 0 % (0-8) Platelet Estimate Adequate Platelet Morphology Normal Red Blood Cell Morphology Normal Prothrombin Time 10.7 SEC (9.30-11.50) Prothromb Time International Ratio 1.0 (0.9-1.1) Activated Partial Thromboplast Time 29 SEC (23-33) Sodium Level 136 MMOL/L (136-145) Potassium Level 4.6 MMOL/L (3.5-5.1) Chloride Level 99 MMOL/L (98-107) Carbon Dioxide Level 25 MMOL/L (21-32) Anion Gap 12 mmol/L (5-15) Blood Urea Nitrogen 26 mg/dL (7-18) H Creatinine 1.6 MG/DL (0.55-1.30) H Estimat Glomerular Filtration Rate 44.9 mL/min (>60) Glucose Level 271 MG/DL (74-106) H Calcium Level 9.0 MG/DL (8.5-10.1) Phosphorus Level 2.0 MG/DL (2.5-4.9) L Magnesium Level 1.5 MG/DL (1.8-2.4) L Total Bilirubin 1.1 MG/DL (0.2-1.0) H Direct Bilirubin 0.1 MG/DL (0.0-0.3) Aspartate Amino Transf (AST/SGOT) 16 U/L (15-37) Alanine Aminotransferase (ALT/SGPT) 24 U/L (12-78) Alkaline Phosphatase 89 U/L (46-116) Total Creatine Kinase 155 U/L (26-308) Troponin I 0.000 ng/mL (0.000-0.056) Total Protein 8.1 G/DL (6.4-8.2) Albumin 3.7 G/DL (3.4-5.0) Globulin 4.4 g/dL Albumin/Globulin Ratio 0.8 (1.0-2.7) L Lipase 156 U/L (73-393) Lactic Acid Level 2.50 mmol/L (0.4-2.0) H 1.70 mmol/L (0.66-2.22) Urine Color Yellow Urine Appearance Slightly cloudy Urine pH 5 (4.5-8.0) Urine Specific [place] 1.020 (1.005-1.035) Urine Protein 3+ (NEGATIVE) H Urine Glucose (UA) 4+ (NEGATIVE) H Urine Ketones Negative (NEGATIVE) Urine Blood Negative (NEGATIVE) Urine Nitrite Negative (NEGATIVE) Urine Bilirubin Negative (NEGATIVE) Urine Urobilinogen Normal MG/DL (0.0-1.0) Urine Leukocyte Esterase Negative (NEGATIVE) Urine RBC 0 /HPF (0 - 0) Urine WBC 0-2 /HPF (0 - 0) Urine Squamous Epithelial Cells Occasional /LPF Urine Bacteria Few /HPF (NONE) Urine Mucus Moderate /LPF (NONE/OCC) H Test 07/18/19 07:35 White Blood Count 14.1 K/UL (4.8-10.8) H Red Blood Count 4.40 M/UL (4.70-6.10) L Hemoglobin 12.9 G/DL (14.2-18.0) L Hematocrit 36.9 % (42.0-52.0) L Mean Corpuscular Volume 84 FL (80-99) Mean Corpuscular Hemoglobin 29.3 PG (27.0-31.0) Mean Corpuscular Hemoglobin Concent 35.0 G/DL (32.0-36.0) Red Cell Distribution Width 12.3 % (11.6-14.8) Platelet Count 238 K/UL (150-450) Mean Platelet Volume 6.2 FL (6.5-10.1) L Neutrophils (%) (Auto) % (45.0-75.0) Lymphocytes (%) (Auto) % (20.0-45.0) Monocytes (%) (Auto) % (1.0-10.0) Eosinophils (%) (Auto) % (0.0-3.0) Basophils (%) (Auto) % (0.0-2.0) Differential Total Cells Counted 100 Neutrophils % (Manual) 91 % (45-75) H Lymphocytes % (Manual) 4 % (20-45) L Monocytes % (Manual) 4 % (1-10) Eosinophils % (Manual) 1 % (0-3) Basophils % (Manual) 0 % (0-2) Band Neutrophils 0 % (0-8) Platelet Estimate Adequate Platelet Morphology Normal Red Blood Cell Morphology Normal Sodium Level 136 MMOL/L (136-145) Potassium Level 4.0 MMOL/L (3.5-5.1) Chloride Level 103 MMOL/L (98-107) Carbon Dioxide Level 23 MMOL/L (21-32) Anion Gap 10 mmol/L (5-15) Blood Urea Nitrogen 16 mg/dL (7-18) Creatinine 1.2 MG/DL (0.55-1.30) Estimat Glomerular Filtration Rate > 60 mL/min (>60) Glucose Level 240 MG/DL (74-106) H Hemoglobin A1c 9.7 % (4.3-6.0) H Calcium Level 8.2 MG/DL (8.5-10.1) L Pro-B-Type Natriuretic Peptide 473 pg/mL (0-125) H Current Medications Medications (Trade) Dose Ordered Sig/Gaurav Route PRN Reason Start Time Stop Time Status Last Admin Dose Admin Acetaminophen (Tylenol) 650 mg Q4H PRN ORAL Mild Pain (Pain Scale 1-3) 07/17/19 23:30 08/16/19 23:29 Acetaminophen (Tylenol) 650 mg Q4H PRN ORAL fever 07/17/19 23:30 08/16/19 23:29 Albuterol/ Ipratropium (Albuterol/ Ipratropium) 3 ml Q4H PRN HHN Shortness of Breath 07/17/19 23:30 07/22/19 23:29 Azithromycin 500 mg/Dextrose 275 ml @ 275 mls/hr Q24HRS IV 07/18/19 09:00 07/24/19 09:59 07/18/19 10:10 Dextrose (Dextrose 50%) 25 ml Q30M PRN IV Hypoglycemia 07/17/19 23:30 08/16/19 23:29 Dextrose (Dextrose 50%) 50 ml Q30M PRN IV Hypoglycemia 07/17/19 23:30 08/16/19 23:29 Enoxaparin Sodium (Lovenox) 40 mg Q24H SUBQ 07/18/19 09:00 08/17/19 08:59 07/18/19 10:10 Hydralazine HCl (Apresoline) 10 mg Q8HR PRN IV SBP 07/18/19 10:15 08/17/19 10:14 UNV Hydromorphone HCl (Dilaudid) 1 mg Q4H PRN IVP Moderate Pain (Pain Scale 4-6) 07/17/19 23:30 07/24/19 23:29 Hydromorphone HCl (Dilaudid) 2 mg Q4H PRN IVP Severe Pain (Pain Scale 7-10) 07/17/19 23:30 07/24/19 23:29 Insulin Aspart (NovoLOG) BEFORE MEALS AND HS SUBQ 07/18/19 06:30 08/17/19 06:29 Lisinopril (ZestriL) 10 mg DAILY ORAL 07/19/19 09:00 08/18/19 08:59 Lorazepam (Ativan) 1 mg Q4H PRN ORAL For Anxiety 07/17/19 23:30 07/24/19 23:29 Magnesium Hydroxide (Mom) 30 ml HSPRN PRN ORAL Constipation 07/17/19 23:30 08/16/19 23:29 Ondansetron HCl (Zofran) 4 mg Q6H PRN IVP Nausea & Vomiting 07/17/19 23:30 08/16/19 23:29 Oseltamivir Phosphate (Tamiflu) 75 mg Q12HR ORAL 07/18/19 09:00 07/23/19 08:59 07/18/19 10:10 Piperacillin Sod/ Tazobactam Sod 3.375 gm/Sodium Chloride 110 ml @ 27.5 mls/hr Q8HR IVPB 07/18/19 14:00 07/25/19 13:59 Sodium Chloride 1,000 ml @ 75 mls/hr [id number] IV 07/18/19 10:15 08/17/19 10:14 07/18/19 10:34 Sodium Chloride 1,000 ml @ 100 mls/hr Q10H IVLG 07/18/19 03:00 08/17/19 02:59 07/18/19 03:42 Vancomycin HCl (Vanco rx to dose) 1 ea DAILY PRN MISC Per rx protocol 07/17/19 23:30 08/16/19 23:29 Vancomycin HCl 1 gm/Dextrose 275 ml @ 183.708 mls/hr Q12H IVPB 07/18/19 10:00 07/23/19 09:59 Shannan Gr MD Jul 18, 2019 11:37
--- NOTE | 2019-07-18 14:50 | NUR ---
CASE MANAGEMENT: INITIAL REVIEW 54YR OLD FROM HOME CC: FEVER, CHILLS AND DYSPNEA ; FLU LIKE SYMPTOMS SI: SEPSIS . PNA 102.3 138 24 121/71 94% ON RA WBC 19.4 H/H 13.3/41.7 BUN 26 CREAT 1.6 PHOS 2.0 MG 1.5 T.HARJEET 1.1 IS:IVF NS BOLUS X3 IV VANCOMYCIN X1 IV ZOSYN X1 TYLENOL PO X1 X-RAY FOOT- PENDING CHEST X-RAY -PENDING EKG - SINUS TACHYCARDIA \: 2E TELE UNIT PLAN: BLUE [employer]INTS TRIMMER FOR HIGH HEART RATE IV HYDRATE ID CONSULT CARDIO CONSULT SP CULTURE- PENDING CASE MANAGEMENT: REVIEW 07/18/19 SI: SEPSIS . PNA 102.0 102 20 133/59 98% ON RA WBC 14.1 H/H 12.9/36.9 BG 240 HA1C 9.7 CA+ 8.2 BNP 473 IS:IVF NS @75ML/HR IV VANCOMYCIN BID ZITHROMAX Q24HR TAMIFLU PO BID LOVENOX Q24HR NOVOLOG SQ AC&HS \: 2E TELE UNIT PLAN: SP CULTURE- PENDING MYCOPLASMA IgM AND IgG -PENDING
[2019-07-18] MEDS: Piperacillin/Tazobactam 3.375 GM in NS 110 ML IVPB SCH ×2 (15:07→21:49)
--- NOTE | 2019-07-18 16:12 | Diagnostic Imaging Report ---
Indication: Cough Technique: One view of the chest Comparison: none Findings: Body habitus limits evaluation. There is some atelectasis at the right lung base. There is questionable mild interstitial congestion. The heart size is upper limits of normal. Impression: Questionable mild interstitial congestion-correlate with clinical findings
--- NOTE | 2019-07-18 16:27 | Diagnostic Imaging Report ---
Indication: Foot pain Technique: 3 views right foot Comparison: none Findings: Patient is status post amputation of the first digit at the level of the metatarsal phalangeal joint. There is degenerative change of the second metatarsal phalangeal joint with marked irregularity and degenerative remodeling of the second metatarsal head. There is questionably some erosive change of the second metatarsal head There is evidence of old healed fracture deformity of the distal second metatarsal shaft. The remaining digits appear unremarkable. No acute fractures. No dislocations. No definite osseous erosions, periosteal reaction, or other findings to suggest acute osteomyelitis. There is a small plantar spur. Impression: Postsurgical changes, as described Degenerative changes of the second metatarsal phalangeal joint, as described Equivocal erosive changes of the second metatarsal head, could be on the basis of degenerative change but the possibility of osteomyelitis should also be considered. Consider MRI for better characterization if clinically indicated
--- NOTE | 2019-07-18 17:09 | NUR ---
SUPERVISOR LOOPING NOTE SW received a notification to assess pt's needs. SW attempted to meet w/ pt 3x. However, pt was in sleep and was unable to discuss pt's needs. SW will continue to F/U. Signed: 07/18/19 at 1710 by TIARA DAVE <Co-Signature Required>
--- NOTE | 2019-07-18 18:43 | NUR ---
NURSE NOTES: contacted Dr Frey regarding patient's fever of 101.5 after Tylenol given, no new orders received. MD is aware of fever.
--- NOTE | 2019-07-18 19:30 | NUR ---
OBTAINED REPORT FROM AJ MONCADA. PT IN NO APPARENT DISTRESS.
--- NOTE | 2019-07-18 19:52 | NUR ---
HAND-OFF: Report given to AJ Erazo.
[2019-07-18] MEDS ORDERED: Atorvastatin 20mg tab ORAL SCH (21:00)
[2019-07-19] VITALS (7 sets, daily range): BP systolic 116–153; BP diastolic 65–86
[2019-07-19] MEDS: Vancomycin 1 GM in NS 275 ML IVPB SCH ×2 (00:26→12:37)
[2019-07-19] MEDS: Piperacillin/Tazobactam 3.375 GM in NS 110 ML IVPB SCH ×3 (05:46→22:14)
[2019-07-19] MEDS: NovoLOG Insulin Flexpen SUBQ SCH ×4 (05:50→22:15)
--- NOTE | 2019-07-19 07:15 | NUR ---
GAVE FULL REPORT TO YASMINE ROCHA. PT IN NO APPARENT DISTRESS.
--- NOTE | 2019-07-19 07:54 | NUR ---
NURSE NOTES: Pt in bed in low position, head semi fowlers, pt Ox4 calm and cooperative, diet CCHO, IV is patent, pt has breakfast at bedside, pt is able to ambulate, pt has pain on right lower leg 7-10, medication to be given, no s/s of distress or sob noted.
--- NOTE | 2019-07-19 08:16 | NUR ---
RADIOLOGY: PCXR COMPLETED 0815HRS. NF
[2019-07-19 08:21] LABS: BASOPHILS % (AUTO) 0.9 % (0.0-2.0); EOSINOPHILS % (AUTO) 3.6 % (0.0-3.0); HEMATOCRIT 35.8 % (42.0-52.0); HEMOGLOBIN 12.6 G/DL (14.2-18.0); LYMPHOCYTES % (AUTO) 9.6 % (20.0-45.0); MEAN CORPUSCULAR VOLUME 84 FL (80-99); MONOCYTES % (AUTO) 10.6 % (1.0-10.0); NEUTROPHILS % (AUTO) 75.4 % (45.0-75.0); PLATELET COUNT 217 K/UL (150-450); RED BLOOD COUNT 4.26 M/UL (4.70-6.10); RED CELL DISTRIBUTION WIDTH 12.1 % (11.6-14.8); WHITE BLOOD COUNT 6.8 K/UL (4.8-10.8)
--- NOTE | 2019-07-19 08:21 | NUR ---
NURSE NOTES:WOUND CARE NOTES:Pt presented on admission with erythema distal/ medial R tibia. Mild swelling ,dry scabbed wound bertin R tibia. Pt stated he bumped leg a week ago and had small cut but felt wound became infected. No erythema or exudate noted from wound. (L)2.1cm x (W)0.5cm Wound plantar R foot with punched out appearance .Base of wound pale ,moist with callused borders. Small amt. serous exudate noted (L)0.6cm x (W)0.3cm x (D)0.4cm. Recommendations: Clean wounds R tibia and plantar R foot with Betadine .Cover with Optifoam drsg Daily and prn.
[2019-07-19] MEDS ORDERED: Azithromycin 500 MG in NS 275 ML IV SCH (09:00)
[2019-07-19] MEDS ORDERED: Losartan 50mg tab ORAL SCH (09:00)
[2019-07-19] MEDS ORDERED: Tamsulosin 0.4mg cap ORAL SCH (09:00)
[2019-07-19] MEDS ORDERED: Lisinopril 10mg tab ORAL SCH (09:00)
[2019-07-19] MEDS: Enoxaparin 40mg Inj SUBQ SCH (09:27)
[2019-07-19] MEDS: Oseltamivir 75mg cap ORAL SCH (09:28)
[2019-07-19 09:34] LABS: ALANINE AMINOTRANSFERASE 17 U/L (12-78); ALBUMIN 2.6 G/DL (3.4-5.0); ALBUMIN/GLOBULIN RATIO 0.6 (1.0-2.7); ALKALINE PHOSPHATASE 70 U/L (46-116); ANION GAP 10 mmol/L (5-15); ASPARTATE AMINO TRANSFERASE 17 U/L (15-37); BILIRUBIN,TOTAL 0.7 MG/DL (0.2-1.0); BLOOD UREA NITROGEN 12 mg/dL (7-18); CALCIUM 8.2 MG/DL (8.5-10.1); CARBON DIOXIDE 24 MMOL/L (21-32); CHLORIDE 104 MMOL/L (98-107); CREATININE 1.2 MG/DL (0.55-1.30); POTASSIUM 3.8 MMOL/L (3.5-5.1); SODIUM 137 MMOL/L (136-145)
--- NOTE | 2019-07-19 09:58 | Diagnostic Imaging Report ---
Indication: Cough Technique: One view of the chest Comparison: 07/17/2019 Findings: Is some atelectasis at the right lung base. Previously questioned interstitial congestion is no longer evident. Normal heart size. Impression: Right basilar atelectasis. No acute process otherwise
--- NOTE | 2019-07-19 10:17 | Cardiac Electrophysiology PN ---
Assessment/Plan Assessment/Plan 1. HTN, On Losartan 100 daily and prn Clonidine 2. Leg edema, due to cellulitis and varicose veins. Echo EF 60% 3. Right lef cellulitis 4. sepsis, possible cap, fevers, leukocytosis per Dr Farah 5. DM DW RN Subjective Subjective Still has right leg pain and cellulitis Objective Last 24 Hour Vital Signs Date Time Temp Pulse Resp B/P (MAP) Pulse Ox O2 Delivery O2 Flow Rate FiO2 07/19/19 09:27 116/65 07/19/19 08:28 Room Air 07/19/19 08:00 97.3 96 18 116/65 (82) 98 07/19/19 04:00 98.2 92 20 119/73 (88) 98 07/19/19 04:00 90 07/19/19 00:00 90 07/19/19 00:00 98.6 87 20 153/86 (108) 98 07/18/19 20:00 Room Air 07/18/19 20:00 100.3 100 20 141/78 (99) 97 07/18/19 20:00 105 07/18/19 16:10 101.5 07/18/19 16:00 108 07/18/19 15:45 100.2 106 20 147/85 (105) 99 07/18/19 12:00 114 07/18/19 12:00 102.0 102 20 133/59 (83) 98 Intake and Output 07/18/19 07/19/19 19:00 07:00 Output Total 500 ml 300 ml Balance -500 ml -300 ml Output Urine Total 500 ml 300 ml Laboratory Tests Test 07/18/19 13:00 07/18/19 17:00 07/19/19 07:40 Mycoplasma pneumoniae IgG Antibody Pending Mycoplasma pneumoniae IgM Ab Titer Pending Urine Legionella Antigen Pending White Blood Count 6.8 K/UL (4.8-10.8) # Red Blood Count 4.26 M/UL (4.70-6.10) L Hemoglobin 12.6 G/DL (14.2-18.0) L Hematocrit 35.8 % (42.0-52.0) L Mean Corpuscular Volume 84 FL (80-99) Mean Corpuscular Hemoglobin 29.5 PG (27.0-31.0) Mean Corpuscular Hemoglobin Concent 35.2 G/DL (32.0-36.0) Red Cell Distribution Width 12.1 % (11.6-14.8) Platelet Count 217 K/UL (150-450) Mean Platelet Volume 5.8 FL (6.5-10.1) L Neutrophils (%) (Auto) 75.4 % (45.0-75.0) H Lymphocytes (%) (Auto) 9.6 % (20.0-45.0) L Monocytes (%) (Auto) 10.6 % (1.0-10.0) H Eosinophils (%) (Auto) 3.6 % (0.0-3.0) H Basophils (%) (Auto) 0.9 % (0.0-2.0) Sodium Level 137 MMOL/L (136-145) Potassium Level 3.8 MMOL/L (3.5-5.1) Chloride Level 104 MMOL/L (98-107) Carbon Dioxide Level 24 MMOL/L (21-32) Anion Gap 10 mmol/L (5-15) Blood Urea Nitrogen 12 mg/dL (7-18) Creatinine 1.2 MG/DL (0.55-1.30) Estimat Glomerular Filtration Rate > 60 mL/min (>60) Glucose Level 189 MG/DL (74-106) H Calcium Level 8.2 MG/DL (8.5-10.1) L Total Bilirubin 0.7 MG/DL (0.2-1.0) Aspartate Amino Transf (AST/SGOT) 17 U/L (15-37) Alanine Aminotransferase (ALT/SGPT) 17 U/L (12-78) Alkaline Phosphatase 70 U/L (46-116) Troponin I 0.000 ng/mL (0.000-0.056) Pro-B-Type Natriuretic Peptide 384 pg/mL (0-125) H Total Protein 6.9 G/DL (6.4-8.2) Albumin 2.6 G/DL (3.4-5.0) L Globulin 4.3 g/dL Albumin/Globulin Ratio 0.6 (1.0-2.7) L Thyroid Stimulating Hormone (TSH) 1.744 uiU/mL (0.358-3.740) Microbiology Date/Time Source Procedure Growth Status 07/17/19 19:35 Blood Blood Culture - Preliminary NO GROWTH AFTER 24 HOURS Resulted 07/17/19 19:20 Blood Blood Culture - Preliminary NO GROWTH AFTER 24 HOURS Resulted 07/17/19 19:20 Nasal Nares - Final Complete 07/17/19 19:20 Nasal Nares - Final Complete Objective General Appearance: alert, moderate distress Head: normocephalic, atraumatic Eyes: bilateral eye PERRL, bilateral eye EOMI HEENT: No JVD Respiratory: lungs clear, no respiratory distress, no retraction, no accessory muscle use Cardiovascular : Tachycardia, no edema, no gallop, no murmur, tachycardia Gastrointestinal: non tender, soft, no guarding, no rebound EXT: 1st big left toe amputation, healed, planta ulcer left foot, not fluctuant , dry Leg cellulitis Neurologic: alert, oriented x3 Flash Rehman MD Jul 19, 2019 10:17
--- NOTE | 2019-07-19 11:30 | Consultation ---
DATE OF CONSULTATION: 07/18/2019 CARDIOLOGY CONSULTATION CONSULTING PHYSICIAN: Flash Rehman M.D. REFERRING PHYSICIAN: Yesica Obando M.D. ADDITIONAL REFERRING PHYSICIAN: Dr. Anderson. REASON FOR CONSULTATION: Tachycardia with heart rate of 130s. HISTORY OF PRESENT ILLNESS: The patient is a 54-year-old gentleman with history of hypertension, diabetic foot ulcer status post surgery three weeks ago, presented to the hospital with cough, fever, chills. The patient was also tachycardic, heart rate of 138 beats per minute in the emergency room. White count is also 19,400. The patient was admitted and started on IV antibiotic by Infectious Disease specialist. The patient also was found to have renal failure, creatinine 1.6 and glucose was 271. At the time of my evaluation, the patient still is febrile and short of breath, lactic acidosis with a lactic acid of 2.5. REVIEW OF SYSTEMS: Review of systems was negative other than what was mentioned in history of present illness. PAST MEDICAL HISTORY: As mentioned above. FAMILY HISTORY: Noncontributory. SOCIAL HISTORY: He lives at home. Does not do any drugs. PHYSICAL EXAMINATION: VITAL SIGNS: Blood pressure 161/83, pulse 120, respirations 22, temperature 98.6. HEAD AND NECK: Showed no JVD. LUNGS: Coarse rhonchi bilaterally. CARDIOVASCULAR: Regular S1 and S2 and tachycardic. ABDOMEN: Soft. EXTREMITIES: No pitting edema. LABORATORY DATA: Labs show white count of 19.4 went down to 14.1, hemoglobin 12.9, hematocrit of 37, and platelet count of 238. Sodium is 132, potassium 4.0, BUN of 01:44, creatinine 1.5, and glucose of 240. Hemoglobin A1c is 9.7. His INR is 1. ASSESSMENT AND PLAN: 1. Tachycardia due to sinus tachycardia with heart rate of 130s, likely due to the patient's underlying sepsis. No evidence of atrial fibrillation or supraventricular tachycardia. 2. Hypertension. The patient is on p.r.n. intravenous hydralazine. We will start him on Cardizem 30 mg every 8 hours trending dose. I will get an echocardiogram for further evaluation. 3. Pneumonia of sepsis and lactic acidosis, on intravenous antibiotic. 4. Possible old inferior wall myocardial infarction by EKG, does not have any chest pain. We will get an echocardiogram for further evaluation and management. 5. Uncontrolled diabetes. Hemoglobin A1c of more than 9. 6. Questionable flu. The patient already on Tamiflu as well as IV antibiotic. Thank you very much for allowing me to participate in the care of this patient. Please do not hesitate to contact e for any questions regarding my evaluation. Flash Rehman M.D. DR: Wilner JOB#: [id number] CC:
[2019-07-19] MEDS ORDERED: oxyCODONE HCL/Acetaminophen 5/325mg ORAL PRN ×2 (12:40→17:54)
--- NOTE | 2019-07-19 12:43 | General Progress Note ---
Assessment/Plan Problem List: (1) Severe sepsis ICD Codes: A41.9 - Sepsis, unspecified organism; R65.20 - Severe sepsis without septic shock SNOMED: 70689413 (2) Pneumonia ICD Codes: J18.9 - Pneumonia, unspecified organism SNOMED: 522831151 Qualifiers: Qualified Codes: J18.9 - Pneumonia, unspecified organism (3) ALFONSO (acute kidney injury) ICD Codes: N17.9 - Acute kidney failure, unspecified SNOMED: 5750277, 78788345 (4) Uncontrolled type 2 DM with peripheral circulatory disorder ICD Codes: E11.51 - Type 2 diabetes mellitus with diabetic peripheral angiopathy without gangrene; E11.65 - Type 2 diabetes mellitus with hyperglycemia SNOMED: 18333102, 756124382, 951715236 (5) Cellulitis of right lower extremity ICD Codes: L03.115 - Cellulitis of right lower limb SNOMED: 645067999 Status: stable, progressing Assessment/Plan: 54-year-old male with uncontrolled diabetes presented with shortness of breath, fever, chills, myalgias. #Severe sepsis secondary to pneumonia, also likely RLE cellulitis. Doubt flu Judicious hydration due to vascular congestion seen on chest x-ray Antibiotics IV Zosyn, vancomycin, azithromycin. DC Tamiflu. All antibiotics renal dose ID consult Per ID recs, if continues to get better, can change to oral abx, Augmentin and doxycycline for one week #ALFONSO versus ALFONSO on CKD Monitor renal function avoid nephrotoxic medications Hold Losartan, can resume 2/13 am since cr has stabilized #Uncontrolled diabetes with history of R first toe amputation Hold home Metformin and glipizide check hba1c---> 9.7 insulin sliding scale add basal coverage once eating. Nutrition consult education Losartan 100 #HTN #HLD #?CHF, elevated bnp losartan 100, clonidine prn continue statin bp control with hydralazine prn 2D echocardiogram --> EF 60% cardiology consult appreciated I spent 40 minutes on this encounter. plan of care d/w patient, consultants and RN. Time of note may not reflect time of encounter. Subjective Date patient seen: Jul 19, 2019 ROS Limited/Unobtainable: No Constitutional: Denies: no symptoms, chills, diaphoresis, fever, malaise, weakness, other HEENT: Denies: no symptoms, eye pain, blurred vision, tearing, double vision, ear pain, ear discharge, nose pain, nose congestion, throat pain, throat swelling, mouth pain, mouth swelling, other Cardiovascular: Denies: no symptoms, chest pain, edema, irregular heart rate, lightheadedness, palpitations, syncope, other Respiratory: Denies: no symptoms, cough, orthopnea, shortness of breath, SOB with excertion, SOB at rest, sputum, stridor, wheezing, other Gastrointestinal/Abdominal: Denies: no symptoms, abdomen distended, abdominal pain, black stools, tarry stools, blood in stool, constipated, diarrhea, difficulty swallowing, nausea, poor appetite, poor fluid intake, rectal bleeding , vomiting, other Genitourinary: Denies: no symptoms, burning, discharge, frequency, flank pain, hematuria, incontinence, pain, urgency, other Neurologic/Psychiatric: Denies: no symptoms, anxiety, depressed, emotional problems, headache, numbness, paresthesia, pre-existing deficit, seizure, tingling, tremors, weakness, other Endocrine: Denies: no symptoms, excessive sweating, flushing, intolerance to cold, intolerance to heat, increased hunger, increased thirst, increased urine, unexplained weight gain, unexplained weight loss, other Hematologic/Lymphatic: Denies: no symptoms, anemia, easy bleeding, easy bruising, other Allergies: Coded Allergies: No Known Allergies (Unverified , 07/17/19) Subjective feels much better today. No more chills. RLE is now more red. Objective Last 24 Hour Vital Signs Date Time Temp Pulse Resp B/P (MAP) Pulse Ox O2 Delivery O2 Flow Rate FiO2 07/19/19 12:00 98.0 92 18 117/72 (87) 97 07/19/19 11:00 97.3 07/19/19 09:27 116/65 07/19/19 08:28 Room Air 07/19/19 08:00 97.3 96 18 116/65 (82) 98 07/19/19 07:45 94 07/19/19 07:44 79 07/19/19 04:00 98.2 92 20 119/73 (88) 98 07/19/19 04:00 90 07/19/19 00:00 90 07/19/19 00:00 98.6 87 20 153/86 (108) 98 07/18/19 20:00 Room Air 07/18/19 20:00 100.3 100 20 141/78 (99) 97 07/18/19 20:00 105 07/18/19 16:10 101.5 07/18/19 16:00 108 07/18/19 15:45 100.2 106 20 147/85 (105) 99 Intake and Output 07/18/19 07/19/19 19:00 07:00 Output Total 500 ml 300 ml Balance -500 ml -300 ml Output Urine Total 500 ml 300 ml Laboratory Tests 07/18/19 13:00: Mycoplasma pneumoniae IgG Antibody [Pending], Mycoplasma pneumoniae IgM Ab Titer [Pending] 07/18/19 17:00: Urine Legionella Antigen [Pending] 07/19/19 07:40: White Blood Count 6.8#, Red Blood Count 4.26L, Hemoglobin 12.6L, Hematocrit 35.8L, Mean Corpuscular Volume 84, Mean Corpuscular Hemoglobin 29.5, Mean Corpuscular Hemoglobin Concent 35.2, Red Cell Distribution Width 12.1, Platelet Count 217, Mean Platelet Volume 5.8L, Neutrophils (%) (Auto) 75.4H, Lymphocytes (%) (Auto) 9.6L, Monocytes (%) (Auto) 10.6H, Eosinophils (%) (Auto) 3.6H, Basophils (%) (Auto) 0.9, Sodium Level 137, Potassium Level 3.8, Chloride Level 104, Carbon Dioxide Level 24, Anion Gap 10, Blood Urea Nitrogen 12, Creatinine 1.2, Estimat Glomerular Filtration Rate > 60, Glucose Level 189H, Calcium Level 8.2L, Total Bilirubin 0.7, Aspartate Amino Transf (AST/SGOT) 17, Alanine Aminotransferase (ALT/SGPT) 17, Alkaline Phosphatase 70, Troponin I 0.000, Pro-B -Type Natriuretic Peptide 384H, Total Protein 6.9, Albumin 2.6L, Globulin 4.3, Albumin/Globulin Ratio 0.6L, Thyroid Stimulating Hormone (TSH) 1.744 Height (Feet): 6 Height (Inches): 2.00 Weight (Pounds): 251 Objective General Appearance: alert, no distress Head: normocephalic, atraumatic Eyes: bilateral eye PERRL, bilateral eye EOMI ENT: uvula midline, dry mucus membranes Neck: supple, thyroid normal, supple/symm/no masses Respiratory: lungs clear, no respiratory distress, no retraction, no accessory muscle use Cardiovascular : Tachycardia, no edema, no gallop, no murmur, tachycardia Gastrointestinal: non tender, soft, no guarding, no rebound Musculoskeletal: normal inspection, EXT: 1st big right toe amputation, healed, planta ulcer right foot, not fluctuant, dry. RLE erythema and warmth up to below the knee Neurologic: alert, oriented x3 Skin: no rash, warm/dry Nelson Anderson M.D. Jul 19, 2019 12:43
[2019-07-19] MEDS ORDERED: HYDROmorphone 1mg/ml Carpuject IVP PRN ×3 (12:45→17:54)
--- NOTE | 2019-07-19 15:10 | NUR ---
CASE MANAGEMENT: REVIEW 07/19/19 SI: SEVERE SEPSIS . PNA . ALFONSO . LEG EDEMA . RLE CELLULITIS . DM 97.3 96 18 116/65 98% ON RA WBC 14.1 H/H 12.9/36.9 BG 240 HA1C 9.7 CA+ 8.2 BNP 473 IS:IVF NS @75ML/HR IV VANCOMYCIN BID IV ZOSYN Q8HR ZITHROMAX Q24HR X6 BAGS COZAAR PO QD TAMIFLU PO BID LOVENOX Q24HR NOVOLOG SQ AC&HS \: 2E TELE UNIT PLAN: ORDER TO TRANSFER TO MED SURG 2D ECHO SP CULTURE- PENDING MYCOPLASMA IgM AND IgG -PENDING
--- NOTE | 2019-07-19 15:36 | NUR ---
SKILLED NURSING FACILITY COUNSELOR NOTE SW met w/ pt and assessed pt's needs. PT has been homeless for 3 weeks. Pt resided at [address] [place] [address]. Pt reports he cannot return there upon DC. PT does not receive any income. Pt was recently employed as a construction cost estimator. Pt is single, never , and has no children. Emergency contacts provided: Linden Samayoa (friend) [phone] and Nelson Page (cousin living in [place]) [phone]. Pt declined to receive information on AD. Pt is independent w/ ADLs, and ambulatory w/o DME. Pt denies SI/HI/substance abuse. RUDS N/A. Pt plans to ask his friends for placement. One of his friends are planning to visit pt today. SW and pt will discuss possible placement options if pt unable to find one. JOLIE will continue to F/U. Signed: 07/19/19 at 1541 by TIARA DAVE <Co-Signature Required>
--- NOTE | 2019-07-19 17:00 | NUR ---
NURSE NOTES: Received patient from tele. Patient is alert and oriented x4. Re-orientation given about the unit.Call light and personnel items within reach. All belongings are accounted for. IV is intact. Right lower leg cellulitis with diabetic ulcer noted . Will continue plan of care.
[2019-07-19] MEDS ORDERED: Albuterol/Ipratropium 3ml neb HHN PRN (17:54)
[2019-07-19] MEDS ORDERED: Milk of Magnesia 30ml Ud ORAL PRN (17:54)
[2019-07-19] MEDS ORDERED: LORazepam 1mg tab ORAL PRN (17:54)
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
--- NOTE | 2019-07-19 19:10 | NUR ---
HAND-OFF: Report given to
--- NOTE | 2019-07-19 20:03 | NUR ---
NURSE NOTES: Patient in bed, awake, alert and verbally responsive. Able to make needs known. Respiration is even and unlabored. No complaint of pain or discomfort noted. Skin is warm and dry to touch. Noted with right lower extremity redness. Iv site noted, iv fluid is infusing as ordered. Kept clean and comfortable. bed in low and locked position. Call light is at bedside.
--- NOTE | 2019-07-19 20:20 | Infectious Diseases Prog Note ---
Assessment/Plan Assessment/Plan Full consult dictated: A) 1. sepsis, possible cap, fevers, leukocytosis 2. pmh noted 3. allergies - nkda P) 1. zosyn and azithromycin 2. check cultures, labs and chest x-ray 3. consider oral abx soon 4. will f/u Subjective Allergies: Coded Allergies: No Known Allergies (Unverified , 07/17/19) Objective Vital Signs Last 24 Hour Vital Signs Date Time Temp Pulse Resp B/P (MAP) Pulse Ox O2 Delivery O2 Flow Rate FiO2 07/19/19 16:00 97.9 94 20 139/86 (103) 97 07/19/19 12:00 98.0 92 18 117/72 (87) 97 07/19/19 11:39 86 07/19/19 11:00 97.3 07/19/19 09:27 116/65 07/19/19 08:28 Room Air 07/19/19 08:00 97.3 96 18 116/65 (82) 98 07/19/19 07:45 94 07/19/19 07:44 79 07/19/19 04:00 98.2 92 20 119/73 (88) 98 07/19/19 04:00 90 07/19/19 00:00 90 07/19/19 00:00 98.6 87 20 153/86 (108) 98 Height (Feet): 6 Height (Inches): 2.00 Weight (Pounds): 251 Microbiology Date/Time Source Procedure Growth Status 07/17/19 19:35 Blood Blood Culture - Preliminary NO GROWTH AFTER 24 HOURS Resulted 07/17/19 19:20 Blood Blood Culture - Preliminary NO GROWTH AFTER 24 HOURS Resulted 07/19/19 00:54 Sputum Induced Gram Stain - Final Complete 07/19/19 00:54 Sputum Induced Sputum Culture - Final CULTURE NOT PERFORMED ... Complete 07/17/19 19:20 Nasal Nares - Final Complete 07/17/19 19:20 Nasal Nares - Final Complete Laboratory Tests Test 07/19/19 07:40 White Blood Count 6.8 K/UL (4.8-10.8) # Red Blood Count 4.26 M/UL (4.70-6.10) L Hemoglobin 12.6 G/DL (14.2-18.0) L Hematocrit 35.8 % (42.0-52.0) L Mean Corpuscular Volume 84 FL (80-99) Mean Corpuscular Hemoglobin 29.5 PG (27.0-31.0) Mean Corpuscular Hemoglobin Concent 35.2 G/DL (32.0-36.0) Red Cell Distribution Width 12.1 % (11.6-14.8) Platelet Count 217 K/UL (150-450) Mean Platelet Volume 5.8 FL (6.5-10.1) L Neutrophils (%) (Auto) 75.4 % (45.0-75.0) H Lymphocytes (%) (Auto) 9.6 % (20.0-45.0) L Monocytes (%) (Auto) 10.6 % (1.0-10.0) H Eosinophils (%) (Auto) 3.6 % (0.0-3.0) H Basophils (%) (Auto) 0.9 % (0.0-2.0) Sodium Level 137 MMOL/L (136-145) Potassium Level 3.8 MMOL/L (3.5-5.1) Chloride Level 104 MMOL/L (98-107) Carbon Dioxide Level 24 MMOL/L (21-32) Anion Gap 10 mmol/L (5-15) Blood Urea Nitrogen 12 mg/dL (7-18) Creatinine 1.2 MG/DL (0.55-1.30) Estimat Glomerular Filtration Rate > 60 mL/min (>60) Glucose Level 189 MG/DL (74-106) H Calcium Level 8.2 MG/DL (8.5-10.1) L Total Bilirubin 0.7 MG/DL (0.2-1.0) Aspartate Amino Transf (AST/SGOT) 17 U/L (15-37) Alanine Aminotransferase (ALT/SGPT) 17 U/L (12-78) Alkaline Phosphatase 70 U/L (46-116) Troponin I 0.000 ng/mL (0.000-0.056) Pro-B-Type Natriuretic Peptide 384 pg/mL (0-125) H Total Protein 6.9 G/DL (6.4-8.2) Albumin 2.6 G/DL (3.4-5.0) L Globulin 4.3 g/dL Albumin/Globulin Ratio 0.6 (1.0-2.7) L Thyroid Stimulating Hormone (TSH) 1.744 uiU/mL (0.358-3.740) Current Medications Medications (Trade) Dose Ordered Sig/Gaurav Route PRN Reason Start Time Stop Time Status Last Admin Dose Admin Acetaminophen (Tylenol) 650 mg Q4H PRN ORAL Mild Pain (Pain Scale 1-3) 07/19/19 17:53 08/18/19 17:52 Acetaminophen (Tylenol) 650 mg Q4H PRN ORAL fever 07/19/19 17:53 08/18/19 17:52 Albuterol/ Ipratropium (Albuterol/ Ipratropium) 3 ml Q4H PRN HHN Shortness of Breath 07/19/19 17:54 07/24/19 17:53 Atorvastatin Calcium (Lipitor) 40 mg BEDTIME ORAL 07/19/19 21:00 08/17/19 20:59 Azithromycin 500 mg/Sodium Chloride 275 ml @ 275 mls/hr Q24HRS IV 07/20/19 09:00 07/24/19 09:59 Dextrose (Dextrose 50%) 25 ml Q30M PRN IV Hypoglycemia 07/19/19 18:00 08/16/19 23:29 Dextrose (Dextrose 50%) 50 ml Q30M PRN IV Hypoglycemia 07/19/19 18:00 08/16/19 23:29 Enoxaparin Sodium (Lovenox) 40 mg Q24H SUBQ 07/20/19 09:00 08/17/19 08:59 Hydromorphone HCl (Dilaudid) 1 mg Q4H PRN IVP breakthrough pain 07/19/19 17:54 07/26/19 17:53 Insulin Aspart (NovoLOG) BEFORE MEALS AND HS SUBQ 07/19/19 21:00 08/17/19 06:29 Lorazepam (Ativan) 1 mg Q4H PRN ORAL For Anxiety 07/19/19 17:54 07/26/19 17:53 Losartan Potassium (Cozaar) 100 mg DAILY ORAL 07/20/19 09:00 08/18/19 08:59 Magnesium Hydroxide (Mom) 30 ml HSPRN PRN ORAL Constipation 07/19/19 17:54 08/18/19 17:53 Ondansetron HCl (Zofran) 4 mg Q6H PRN IVP Nausea & Vomiting 07/19/19 17:54 08/18/19 17:53 Oseltamivir Phosphate (Tamiflu) 75 mg Q12HR ORAL 07/19/19 21:00 07/23/19 08:59 Oxycodone/ Acetaminophen (Percocet 10/325) 1 tab Q4H PRN ORAL prn pain 7-10 07/19/19 17:55 07/26/19 17:54 Oxycodone/ Acetaminophen (Percocet 5-325) 1 tab Q4H PRN ORAL pain mod 4-6 07/19/19 17:54 07/26/19 17:53 Piperacillin Sod/ Tazobactam Sod 3.375 gm/Sodium Chloride 110 ml @ 27.5 mls/hr Q8HR IVPB 07/19/19 22:00 07/25/19 13:59 Sodium Chloride 1,000 ml @ 75 mls/hr [id number] IV 07/19/19 17:53 08/18/19 17:52 07/19/19 18:28 Tamsulosin HCl (Flomax) 0.4 mg DAILY ORAL 07/20/19 09:00 08/18/19 08:59 Vancomycin HCl (Vanco rx to dose) 1 ea DAILY PRN MISC Per rx protocol 07/20/19 09:00 08/16/19 23:29 Vancomycin HCl 1 gm/Sodium Chloride 275 ml @ 183.708 mls/hr Q12H IVPB 07/20/19 00:00 07/24/19 00:00 Shannan Gr MD Jul 19, 2019 20:20
[2019-07-19] MEDS ORDERED: Oseltamivir 75mg cap ORAL SCH (21:00)
--- NOTE | 2019-07-19 22:01 | Consultation ---
DATE OF CONSULTATION: 07/19/2019 NOTE: CANCELED DICTATION Shannan Gr M.D. DR: KHANG JOB#: [id number] CC:
[2019-07-19] MEDS: Atorvastatin 20mg tab ORAL SCH (22:14)
--- NOTE | 2019-07-19 23:01 | Consultation ---
DATE OF CONSULTATION: 07/19/2019 NOTE: ADDENDUM CONSULTING PHYSICIAN: Shannan Gr M.D. ATTENDING PHYSICIAN: Yesica Obando M.D. REFERRING PHYSICIAN: Nelson Anderson M.D. I discussed with the patient at length of his right foot wound. Actually the wound when I look at carefully has healed fairly well and he said it has healed and he was at an outside facility where he was getting treatment. I asked him specifically if he had an MRI to rule out a bone infection or osteo, he said yes he did have an MRI several weeks ago and it did not show any evidence of bone infection. He said the right plantar foot wound has healed. This is where he also had right big toe amputation. And when I looked at the leg, the cellulitis most likely comes from the superficial wound where he said he had superficial wound I believe several days ago. The cellulitis probably originates from that wound in the anterior leg and less likely from the foot since there is no continuation of cellulitis from the foot. With regards to the right foot, I told the patient to follow up with his primary care team since he said the MRI showed no evidence of bone infection. No further workup at this time. Continue again antibiotics, Vanco, Zosyn, azithromycin for possible pneumonia and right leg cellulitis. We will discontinue Tamiflu and if the patient continues to improve the right leg cellulitis with improving redness and warmth, we can transition to oral Augmentin and doxy for 1 more week. Shannan Gr M.D. DR: DIANA JOB#: [id number] CC:
[2019-07-20] MEDS ORDERED: Vancomycin 1 GM in NS 275 ML IVPB SCH ×4
[2019-07-20] MEDS: Vancomycin 1.5gm/NS Premix 275 ML IVPB SCH ×2 (00:01→11:17)
--- NOTE | 2019-07-20 00:01 | Consultation ---
DATE OF CONSULTATION: 07/19/2019 INFECTIOUS DISEASE CONSULTATION CONSULTING PHYSICIAN: Shannan Gr M.D. ATTENDING PHYSICIAN: Yesica Obando M.D. REFERRING PHYSICIAN: Dr. Anderson. REASON FOR CONSULTATION: Sepsis, right leg cellulitis, pneumonia, leukocytosis, and fevers. CHIEF COMPLAINT: Coming into the hospital is sepsis. HISTORY OF PRESENT ILLNESS: This is a very pleasant 54-year-old male who comes into [facility] with cough and congestion. There was concern that the patient could have community-acquired pneumonia. Sputum culture, Legionella, and mycoplasma ordered. Chest x-ray shows, unclear if he has atelectasis versus infiltrate. The patient also had trauma to his right leg. It looks like with a scab now with increased redness to the right lower extremity consistent with cellulitis, redness, and warmth. Infectious Disease consultation was requested. The patient is currently on vancomycin, azithromycin, and Zosyn. The patient's white count initially was 19.4, now it is normal. Temperature was as high as 101, 102.6, now he has been afebrile today. The patient will continue vancomycin, Zosyn, and azithromycin for now. Case was communicated with Dr. Anderson. MAR was noted. Orders were noted. Notes and records were reviewed. REVIEW OF SYSTEMS: GENERAL: Main issue is he came in with fevers and elevated white count. He is alert and responsive. HEAD AND NECK: No headache. No neck stiffness. CARDIAC: No chest pain. GASTROINTESTINAL: No nausea, vomiting, or diarrhea. GENITOURINARY: No dysuria or frequency. PULMONARY: No short of breath. He did come in with cough and congestion, but it is better now. No significant shortness of breath. SKIN: No rash. EXTREMITIES: He has right leg pain and swelling. PAST MEDICAL HISTORY: The patient has a past medical history of diabetes, hypertension, hyperlipidemia, and BPH. PAST SURGICAL HISTORY: He has history of left foot big toe amputation. ALLERGIES: No known drug allergies. No antibiotic allergies. SOCIAL HISTORY: Negative for smoking, alcohol, or drug abuse. FAMILY HISTORY: Noncontributory. MEDICATIONS: Upon reviewing MAR, he is on following medications; he is on Zosyn, azithromycin, Lovenox, losartan, Cozaar, Flomax, vancomycin, azithromycin, Zosyn, Lipitor, and insulin. He is still on , which will be discontinued. He is on hydromorphone, lorazepam, magnesium hydroxide, Zofran, oxycodone, and acetaminophen. Outside medications noted and reconciliated. PHYSICAL EXAMINATION: VITAL SIGNS: Temperature 97.9, pulse rate 94, respiratory rate 20, and blood pressure 139/86. Saturation 97%. T-max is 102.6. Heart rate has been as high as 130 on admission. GENERAL: Alert and responsive, in no distress. HEAD AND NECK: Oral exam, no thrush. Eye exam, no icterus. Normocephalic. Neck is supple. HEART: Regular. No gallop or murmur. No friction or rub. LUNGS: Clear bilaterally. No rhonchi or rales. ABDOMEN: Soft. Positive bowel sounds. Nontender. GENITOURINARY: No Castellanos. SKIN: No rash. MUSCULOSKELETAL: No effusion. Legs, he has right leg redness and warmth. He also has a right plantar wound. They did not see any cellulitis of the right foot. However, he does have a small wound looks like in the right foot. He has what looks like amputation of the left toe, looks like he has amputation of the right great toe. PERIPHERAL VASCULAR: No gangrene. He has a scab in the right anterior leg also. LINE SITES: Without phlebitis. NEUROLOGIC: Alert and oriented x3. Nonfocal. Intact. LABORATORY DATA: White count 19.4 on admission. White count today is , hemoglobin 12.6. Creatinine is 1.2. UA was negative, 0 to 2 white cells. Blood cultures negative. Influenza screen is negative. IMAGING STUDIES: Chest x-ray, more likely atelectasis. Unclear if he has an infiltrate in the right lung. Also per the records, possible left lower lobe infiltrate on initial chest x-ray. It did show also atelectasis versus infiltrate in the right lung. X-ray of the right foot showed no fracture. There is no mention of osteo. No definite osseous erosions, periosteal reaction, or other findings to suggest osteo. Questionable erosive changes in second metatarsal. ASSESSMENT AND PLAN: 1. The patient has sepsis, SIRS criteria, questionable community-acquired pneumonia. However, he does have right leg cellulitis with what looks like possible wound of the right foot plantar area. However, I do not see any drainage or cellulitis of the right foot. Most likely source of sepsis is right leg cellulitis with sepsis, fevers, and leukocytosis. Questionable community-acquired pneumonia. Influenza screen is negative. This time we will continue vancomycin, Zosyn, and azithromycin. Consider stopping Tamiflu since influenza screen is negative. I do not think this is influenza infection since he does have right leg cellulitis. Continue vancomycin, Zosyn, and azithromycin for now. If the patient continues to improve, consider transition to oral Augmentin and doxycycline x7 more days to cover respiratory infection, soft tissue infection, right lower extremity cellulitis, and sepsis. Consider getting sedimentation rate. Also x-ray of the right foot showed no obvious osteo. If the sedimentation rate is very high, consider an MRI. We will discuss with Dr. Anderson about this. The patient may potentially need a Podiatry evaluation also if the sedimentation rate is very high. Continue local wound care protocol. Continue antibiotics, vancomycin, Zosyn, and azithromycin for now. Follow up laboratories and check final culture. Blood cultures are so far negative today. 2. The patient has history of diabetes. 3. Hyperlipidemia. 4. Hypertension 5. Blood sugar and blood pressure treatment per primary care team. 6. BPH. 7. History of amputation on right big toe. 8. Case was discussed with Dr. Anderson. 9. Continue treatment per primary consultants. 10. No known allergies. 11. Social history is negative. 12. Family history is noncontributory. 13. MAR was noted. 14. Case discussed with RN. 15. Orders were noted and entered. 16. Skin care protocol. Shannan Gr M.D. DR: ANTHONY JOB#: [id number] CC:
[2019-07-20 04:00] VITALS: BP 136/81
[2019-07-20] MEDS: Piperacillin/Tazobactam 3.375 GM in NS 110 ML IVPB SCH ×3 (05:13→21:02)
--- NOTE | 2019-07-20 05:20 | NUR ---
NURSE NOTES: Patient complained of right leg pain, given PRN tylenol, will reassess patient. Call light is at bedside. Will continue plan of care.
[2019-07-20 06:11] LABS: BASOPHILS % (AUTO) 1.1 % (0.0-2.0); HEMATOCRIT 34.1 % (42.0-52.0); LYMPHOCYTES % (AUTO) 14.6 % (20.0-45.0); MEAN CORPUSCULAR VOLUME 84 FL (80-99); MONOCYTES % (AUTO) 8.5 % (1.0-10.0); NEUTROPHILS % (AUTO) 70.8 % (45.0-75.0); PLATELET COUNT 232 K/UL (150-450); RED BLOOD COUNT 4.08 M/UL (4.70-6.10); WHITE BLOOD COUNT 6.3 K/UL (4.8-10.8)
[2019-07-20] MEDS: NovoLOG Insulin Flexpen SUBQ SCH ×5 (06:25→21:11)
[2019-07-20 06:50] LABS: ALANINE AMINOTRANSFERASE 20 U/L (12-78); ALBUMIN 2.6 G/DL (3.4-5.0); ALBUMIN/GLOBULIN RATIO 0.6 (1.0-2.7); ALKALINE PHOSPHATASE 69 U/L (46-116); ANION GAP 7 mmol/L (5-15); ASPARTATE AMINO TRANSFERASE 16 U/L (15-37); BILIRUBIN,TOTAL 0.5 MG/DL (0.2-1.0); BLOOD UREA NITROGEN 9 mg/dL (7-18); CALCIUM 8.6 MG/DL (8.5-10.1); CARBON DIOXIDE 27 MMOL/L (21-32); CHLORIDE 105 MMOL/L (98-107); POTASSIUM 3.7 MMOL/L (3.5-5.1); SODIUM 139 MMOL/L (136-145)
--- NOTE | 2019-07-20 07:23 | NUR ---
HAND-OFF: Report given to Meeks RN.
--- NOTE | 2019-07-20 07:24 | NUR ---
NURSE NOTES: Received patient in bed awake. No SOB or acute distress. IV line intact and patent. Right leg red and swollen. HOB elevated. Bed locked in lowest position. Call light within reach. Will continue plan of care.
[2019-07-20 08:00] VITALS: BP 136/71
--- NOTE | 2019-07-20 09:00 | NUR ---
NURSE NOTES: Requesting for stool softener, Dr Anderson aware and to put in order.
[2019-07-20] MEDS: Losartan 50mg tab ORAL SCH (09:12)
[2019-07-20] MEDS: Tamsulosin 0.4mg cap ORAL SCH (09:12)
[2019-07-20] MEDS: Enoxaparin 40mg Inj SUBQ SCH (09:15)
[2019-07-20] MEDS: Azithromycin 500 MG in NS 275 ML IV SCH (09:59)
[2019-07-20 11:57] VITALS: BP 141/89
--- NOTE | 2019-07-20 12:21 | General Progress Note ---
Assessment/Plan Problem List: (1) Severe sepsis ICD Codes: A41.9 - Sepsis, unspecified organism; R65.20 - Severe sepsis without septic shock SNOMED: 24446680 (2) Pneumonia ICD Codes: J18.9 - Pneumonia, unspecified organism SNOMED: 928484782 Qualifiers: Qualified Codes: J18.9 - Pneumonia, unspecified organism (3) ALFONSO (acute kidney injury) ICD Codes: N17.9 - Acute kidney failure, unspecified SNOMED: 7529419, 60743587 (4) Uncontrolled type 2 DM with peripheral circulatory disorder ICD Codes: E11.51 - Type 2 diabetes mellitus with diabetic peripheral angiopathy without gangrene; E11.65 - Type 2 diabetes mellitus with hyperglycemia SNOMED: 36253001, 005123621, 733694942 (5) Cellulitis of right lower extremity ICD Codes: L03.115 - Cellulitis of right lower limb SNOMED: 608226860 Status: stable, progressing Assessment/Plan: 54-year-old male with uncontrolled diabetes presented with shortness of breath, fever, chills, myalgias. #Severe sepsis secondary to pneumonia, also likely RLE cellulitis. Doubt flu Judicious hydration due to vascular congestion seen on chest x-ray Antibiotics IV Zosyn, vancomycin, azithromycin. DC Tamiflu. DC azithromycin. All antibiotics renal dose ID consult Per ID recs, if continues to get better, can change to oral abx, Augmentin and doxycycline for one week onc ebetter #ALFONSO versus ALFONSO on CKD Monitor renal function avoid nephrotoxic medications Hold Losartan, can resume /13 am since cr has stabilized #Uncontrolled diabetes with history of R first toe amputation Hold home Metformin and glipizide check hba1c---> 9.7 insulin sliding scale add basal coverage once eating. Nutrition consult education Losartan 100 #HTN #HLD #?CHF, elevated bnp losartan 100, clonidine prn continue statin bp control with hydralazine prn 2D echocardiogram --> EF 60% cardiology consult appreciated I spent 40 minutes on this encounter. plan of care d/w patient, consultants and RN. Time of note may not reflect time of encounter. Subjective Date patient seen: Jul 20, 2019 Constitutional: Reports: other - pain, leg pain and worsening redness HEENT: Denies: no symptoms, eye pain, blurred vision, tearing, double vision, ear pain, ear discharge, nose pain, nose congestion, throat pain, throat swelling, mouth pain, mouth swelling, other Cardiovascular: Denies: no symptoms, chest pain, edema, irregular heart rate, lightheadedness, palpitations, syncope, other Respiratory: Denies: no symptoms, cough, orthopnea, shortness of breath, SOB with excertion, SOB at rest, sputum, stridor, wheezing, other Gastrointestinal/Abdominal: Denies: no symptoms, abdomen distended, abdominal pain, black stools, tarry stools, blood in stool, constipated, diarrhea, difficulty swallowing, nausea, poor appetite, poor fluid intake, rectal bleeding , vomiting, other Genitourinary: Denies: no symptoms, burning, discharge, frequency, flank pain, hematuria, incontinence, pain, urgency, other Neurologic/Psychiatric: Denies: no symptoms, anxiety, depressed, emotional problems, headache, numbness, paresthesia, pre-existing deficit, seizure, tingling, tremors, weakness, other Endocrine: Denies: no symptoms, excessive sweating, flushing, intolerance to cold, intolerance to heat, increased hunger, increased thirst, increased urine, unexplained weight gain, unexplained weight loss, other Hematologic/Lymphatic: Denies: no symptoms, anemia, easy bleeding, easy bruising, other Allergies: Coded Allergies: No Known Allergies (Unverified , 07/17/19) Subjective RLE is now more red. patient worried, remains on abx for RLE cellulitis Objective Last 24 Hour Vital Signs Date Time Temp Pulse Resp B/P (MAP) Pulse Ox O2 Delivery O2 Flow Rate FiO2 07/20/19 11:57 98.4 89 22 141/89 (106) 99 07/20/19 09:12 136/71 07/20/19 09:00 Room Air 07/20/19 08:00 98.2 93 20 136/71 (92) 96 07/20/19 04:00 98.3 102 20 136/81 (99) 96 07/19/19 23:36 98.3 103 20 128/85 (99) 98 07/19/19 21:00 Room Air 07/19/19 20:00 98.4 101 20 131/81 (98) 97 07/19/19 16:00 97.9 94 20 139/86 (103) 97 Intake and Output 07/19/19 07/20/19 19:00 07:00 Intake Total 780 ml 1835.0 ml Balance 780 ml 1835.0 ml Intake Oral 780 ml 1000 ml IV Total 835.0 ml # Voids 2 4 Laboratory Tests 07/19/19 22:40: Vancomycin Level Trough 9.5 07/20/19 04:51: White Blood Count 6.3, Red Blood Count 4.08L, Hemoglobin 12.0L, Hematocrit 34.1L , Mean Corpuscular Volume 84, Mean Corpuscular Hemoglobin 29.3, Mean Corpuscular Hemoglobin Concent 35.1, Red Cell Distribution Width 12.0, Platelet Count 232, Mean Platelet Volume 6.0L, Neutrophils (%) (Auto) 70.8, Lymphocytes ( %) (Auto) 14.6L, Monocytes (%) (Auto) 8.5, Eosinophils (%) (Auto) 5.0H, Basophils (%) (Auto) 1.1, Sodium Level 139, Potassium Level 3.7, Chloride Level 105, Carbon Dioxide Level 27, Anion Gap 7, Blood Urea Nitrogen 9, Creatinine 1.0 , Estimat Glomerular Filtration Rate > 60, Glucose Level 204H, Calcium Level 8.6 , Total Bilirubin 0.5, Aspartate Amino Transf (AST/SGOT) 16, Alanine Aminotransferase (ALT/SGPT) 20, Alkaline Phosphatase 69, Total Protein 6.9, Albumin 2.6L, Globulin 4.3, Albumin/Globulin Ratio 0.6L Height (Feet): 6 Height (Inches): 2.00 Weight (Pounds): 251 Objective General Appearance: alert, no distress Head: normocephalic, atraumatic Eyes: bilateral eye PERRL, bilateral eye EOMI ENT: uvula midline, dry mucus membranes Neck: supple, thyroid normal, supple/symm/no masses Respiratory: lungs clear, no respiratory distress, no retraction, no accessory muscle use Cardiovascular : Tachycardia, no edema, no gallop, no murmur, tachycardia Gastrointestinal: non tender, soft, no guarding, no rebound Musculoskeletal: normal inspection, EXT: 1st big right toe amputation, healed, planta ulcer right foot, not fluctuant, dry. RLE erythema and warmth up to below the knee Neurologic: alert, oriented x3 Skin: no rash, warm/dry Nelson Anderson M.D. Jul 20, 2019 12:21
[2019-07-20] MEDS ORDERED: traMADol 50mg tab ORAL PRN (12:30)
--- NOTE | 2019-07-20 14:15 | NUR ---
CASE MANAGEMENT:REVIEW SI;SEVERE SEPSIS. PNA. RLE CELLULITIS. ALFONSO. 98.4 103 22 141/89 96% ON RA IS;AZITHROMYCIN IV Q24 HRS LOVENOX SUBQ Q24 HRS VANCOMYCIN Q12 HRS ZOSYN IV Q8 HRS DUO NEB HHN Q4 HRS PRN MED SURG STATUS DCP;FROM HOME
[2019-07-20 16:00] VITALS: BP 130/76
--- NOTE | 2019-07-20 17:00 | Cardiac Electrophysiology PN ---
Assessment/Plan Assessment/Plan 1. HTN, On Losartan 100 daily and prn Clonidine 2. Leg edema, due to cellulitis and varicose veins. Echo EF 60% 3. Right leg cellulitis 4. Sepsis, possible cap, fevers, leukocytosis per Dr Farah 5. DM DW RN Subjective Subjective Still has right leg pain and cellulitis despite iv Abx Objective Last 24 Hour Vital Signs Date Time Temp Pulse Resp B/P (MAP) Pulse Ox O2 Delivery O2 Flow Rate FiO2 07/20/19 11:57 98.4 89 22 141/89 (106) 99 07/20/19 09:12 136/71 07/20/19 09:00 Room Air 07/20/19 08:00 98.2 93 20 136/71 (92) 96 07/20/19 04:00 98.3 102 20 136/81 (99) 96 07/19/19 23:36 98.3 103 20 128/85 (99) 98 07/19/19 21:00 Room Air 07/19/19 20:00 98.4 101 20 131/81 (98) 97 Intake and Output 07/19/19 07/20/19 19:00 07:00 Intake Total 780 ml 1835.0 ml Balance 780 ml 1835.0 ml Intake Oral 780 ml 1000 ml IV Total 835.0 ml # Voids 2 4 Laboratory Tests Test 07/19/19 22:40 07/20/19 04:51 Vancomycin Level Trough 9.5 ug/mL (5.0-12.0) White Blood Count 6.3 K/UL (4.8-10.8) Red Blood Count 4.08 M/UL (4.70-6.10) L Hemoglobin 12.0 G/DL (14.2-18.0) L Hematocrit 34.1 % (42.0-52.0) L Mean Corpuscular Volume 84 FL (80-99) Mean Corpuscular Hemoglobin 29.3 PG (27.0-31.0) Mean Corpuscular Hemoglobin Concent 35.1 G/DL (32.0-36.0) Red Cell Distribution Width 12.0 % (11.6-14.8) Platelet Count 232 K/UL (150-450) Mean Platelet Volume 6.0 FL (6.5-10.1) L Neutrophils (%) (Auto) 70.8 % (45.0-75.0) Lymphocytes (%) (Auto) 14.6 % (20.0-45.0) L Monocytes (%) (Auto) 8.5 % (1.0-10.0) Eosinophils (%) (Auto) 5.0 % (0.0-3.0) H Basophils (%) (Auto) 1.1 % (0.0-2.0) Sodium Level 139 MMOL/L (136-145) Potassium Level 3.7 MMOL/L (3.5-5.1) Chloride Level 105 MMOL/L (98-107) Carbon Dioxide Level 27 MMOL/L (21-32) Anion Gap 7 mmol/L (5-15) Blood Urea Nitrogen 9 mg/dL (7-18) Creatinine 1.0 MG/DL (0.55-1.30) Estimat Glomerular Filtration Rate > 60 mL/min (>60) Glucose Level 204 MG/DL (74-106) H Calcium Level 8.6 MG/DL (8.5-10.1) Total Bilirubin 0.5 MG/DL (0.2-1.0) Aspartate Amino Transf (AST/SGOT) 16 U/L (15-37) Alanine Aminotransferase (ALT/SGPT) 20 U/L (12-78) Alkaline Phosphatase 69 U/L (46-116) Total Protein 6.9 G/DL (6.4-8.2) Albumin 2.6 G/DL (3.4-5.0) L Globulin 4.3 g/dL Albumin/Globulin Ratio 0.6 (1.0-2.7) L Microbiology Date/Time Source Procedure Growth Status 07/17/19 19:35 Blood Blood Culture - Preliminary NO GROWTH AFTER 48 HOURS Resulted 07/17/19 19:20 Blood Blood Culture - Preliminary NO GROWTH AFTER 48 HOURS Resulted 07/19/19 00:54 Sputum Induced Gram Stain - Final Complete 07/19/19 00:54 Sputum Induced Sputum Culture - Final CULTURE NOT PERFORMED ... Complete 07/17/19 19:20 Nasal Nares - Final Complete 07/17/19 19:20 Nasal Nares - Final Complete Objective General Appearance: alert, moderate distress Head: normocephalic, atraumatic Eyes: bilateral eye PERRL, bilateral eye EOMI HEENT: No JVD Respiratory: lungs clear, no respiratory distress, no retraction, no accessory muscle use Cardiovascular : Tachycardia, no edema, no gallop, no murmur, tachycardia Gastrointestinal: non tender, soft, no guarding, no rebound EXT: 1st big left toe amputation, healed, planta ulcer left foot. Right Leg cellulitis Neurologic: alert, oriented x3 Flash Rehman MD Jul 20, 2019 17:00
--- NOTE | 2019-07-20 19:30 | NUR ---
NURSE NOTES: Patient in bed, asleep. Arousable to name and touch. Able to make needs known. Respiration is even and unlabored. Kept clean and comfortable. Bed in low and locked position. No complaint of pain or discomfort noted at this time. IV site noted, iv fluid is infusing as ordered. Right lower leg, redness noted and diabetic pressure ulcer noted, no dressing. Clean. call light is at bedside. Will continue plan of care.
[2019-07-20 20:00] VITALS: BP 146/83
[2019-07-20] MEDS ORDERED: Miralax 17gm pkt ORAL PRN (20:15)
[2019-07-20] MEDS: Atorvastatin 20mg tab ORAL SCH (21:02)
[2019-07-20] MEDS: Docusate 100mg cap ORAL SCH (21:02)
[2019-07-20] MEDS: Miralax 17gm pkt ORAL PRN (21:02)
[2019-07-21] VITALS: BP 140/79
[2019-07-21 04:00] VITALS: BP 138/80
[2019-07-21] MEDS: Piperacillin/Tazobactam 3.375 GM in NS 110 ML IVPB SCH ×3 (05:19→21:21)
[2019-07-21] MEDS: NovoLOG Insulin Flexpen SUBQ SCH ×7 (05:20→21:22)
--- NOTE | 2019-07-21 06:53 | NUR ---
HAND-OFF: Report given to Meeks RN.
--- NOTE | 2019-07-21 07:00 | NUR ---
NURSE NOTES: Received patient in bed awake. No SOB or acute distress. IV line intact and patent. Complaining of constipation, will give medications as ordered. Instructed on adequate fluid and fiber intake. HOB elevated. Bed locked in lowest position. Call light within reach. Will continue plan of care.
[2019-07-21 08:00] VITALS: BP 127/78
--- NOTE | 2019-07-21 08:34 | General Progress Note ---
Assessment/Plan Problem List: (1) Severe sepsis ICD Codes: A41.9 - Sepsis, unspecified organism; R65.20 - Severe sepsis without septic shock SNOMED: 54958303 (2) Pneumonia ICD Codes: J18.9 - Pneumonia, unspecified organism SNOMED: 031673181 Qualifiers: Qualified Codes: J18.9 - Pneumonia, unspecified organism (3) ALFONSO (acute kidney injury) ICD Codes: N17.9 - Acute kidney failure, unspecified SNOMED: 7662443, 61081071 (4) Uncontrolled type 2 DM with peripheral circulatory disorder ICD Codes: E11.51 - Type 2 diabetes mellitus with diabetic peripheral angiopathy without gangrene; E11.65 - Type 2 diabetes mellitus with hyperglycemia SNOMED: 00830975, 961427122, 917846962 (5) Cellulitis of right lower extremity ICD Codes: L03.115 - Cellulitis of right lower limb SNOMED: 873416522 (6) Diastolic CHF ICD Codes: I50.30 - Unspecified diastolic (congestive) heart failure SNOMED: 54647487, 113977124 (7) HTN (hypertension) ICD Codes: I10 - Essential (primary) hypertension SNOMED: 33294630 (8) Diabetic ulcer of right foot ICD Codes: E11.621 - Type 2 diabetes mellitus with foot ulcer; L97.519 - Non- pressure chronic ulcer of other part of right foot with unspecified severity SNOMED: 85261455, 792185643 Status: stable, progressing Assessment/Plan: 54-year-old male with uncontrolled diabetes presented with shortness of breath, fever, chills, myalgias. #Severe sepsis secondary to RLE cellulitis. Initially there were concerns regarding CAP and influenza Judicious hydration due to vascular congestion seen on chest x-ray Antibiotics IV Zosyn, vancomycin, azithromycin. DC Tamiflu. DC azithromycin. All antibiotics renal dose ID consult appreciated Per ID recs, if continues to get better, can change to oral abx, Augmentin and doxycycline for one week once better #ALFONSO- resolved Monitor renal function avoid nephrotoxic medications initially held losartan, resumed 2/13 am since cr has stabilized #Uncontrolled diabetes with history of R first toe amputation Hold home Metformin and glipizide check hba1c---> 9.7 insulin sliding scale added covergae with novolog 3 units with meals Nutrition consult education Losartan 100 mg daily #HTN #HLD #Diastolic CHF, elevated bnp losartan 100, clonidine prn continue statin 2D echocardiogram --> EF 60%, diastolic dysfunction cardiology consult appreciated I spent 40 minutes on this encounter. plan of care d/w patient, consultants and RN. Time of note may not reflect time of encounter. Subjective Date patient seen: Jul 21, 2019 Allergies: Coded Allergies: No Known Allergies (Unverified , 07/17/19) Subjective right leg swelling and redness is better. afebrile, vss. had BM Objective Last 24 Hour Vital Signs Date Time Temp Pulse Resp B/P (MAP) Pulse Ox O2 Delivery O2 Flow Rate FiO2 07/21/19 08:00 98.3 85 20 127/78 (94) 96 07/21/19 04:00 98.2 79 21 138/80 (99) 98 07/21/19 00:00 98.4 82 21 140/79 (99) 99 07/20/19 21:00 Room Air 07/20/19 20:00 99.1 95 20 146/83 (104) 97 07/20/19 16:00 97.5 87 22 130/76 (94) 98 07/20/19 11:57 98.4 89 22 141/89 (106) 99 07/20/19 09:12 136/71 07/20/19 09:00 Room Air Intake and Output 07/20/19 07/21/19 19:00 07:00 Intake Total 985.0 ml 1821.5 ml Output Total 900 ml Balance 985.0 ml 921.5 ml Intake Oral 1200 ml IV Total 985.0 ml 621.5 ml Output Urine Total 900 ml # Voids 7 Height (Feet): 6 Height (Inches): 2.00 Weight (Pounds): 251 Objective General Appearance: alert, no distress Head: normocephalic, atraumatic Eyes: bilateral eye PERRL, bilateral eye EOMI ENT: uvula midline, dry mucus membranes Neck: supple, thyroid normal, supple/symm/no masses Respiratory: lungs clear, no respiratory distress, no retraction, no accessory muscle use Cardiovascular : Tachycardia, no edema, no gallop, no murmur, tachycardia Gastrointestinal: non tender, soft, no guarding, no rebound Musculoskeletal: normal inspection, EXT: 1st big right toe amputation, healed, plantar ulcer right foot, not fluctuant, dry. RLE erythema and warmth up to below the knee Neurologic: alert, oriented x3 Skin: no rash, warm/dry Nelson Anderson M.D. Jul 21, 2019 08:34
[2019-07-21] MEDS: Azithromycin 500 MG in NS 275 ML IV SCH (08:44)
[2019-07-21] MEDS: Docusate 100mg cap ORAL SCH ×2 (08:45→18:32)
[2019-07-21] MEDS: Losartan 50mg tab ORAL SCH (08:45)
[2019-07-21] MEDS: Miralax 17gm pkt ORAL PRN (08:45)
[2019-07-21] MEDS: Tamsulosin 0.4mg cap ORAL SCH (08:45)
[2019-07-21] MEDS: Enoxaparin 40mg Inj SUBQ SCH (08:46)
--- NOTE | 2019-07-21 10:28 | NUR ---
RD ASSESSMENT & RECOMMENDATIONS SEE CARE ACTIVITY FOR COMPLETE ASSESSMENT DAILY ESTIMATED NEEDS: Needs based on Sepsis, DM, ulcer 93kg adj 20-25 kcals/kg 2056-8974 total kcals 1.25-2 g protein/kg 116-186 g total protein 25-30 mL/kg 1816-3952 total fluid mLs NUTRITION DIAGNOSIS: Increased pro needs r/t wound healing as evidenced by pt w/ DM R foot ulcer, A1C 9.7. CURRENT DIET: CCHO MED PO DIET RECOMMENDATIONS: CCHO LOW + DOUBLE PRO PORTIONS for improved glycemic control ADDITIONAL RECOMMENDATIONS: 1) Add MITCHELL BID + Vit C 250mg daily + MVI w/ min qdaily 2) Obtain a standing weight 3) bowel regimen, last bm 5 days ago Prune juice tid w/ meals
--- NOTE | 2019-07-21 10:45 | Cardiac Electrophysiology PN ---
Assessment/Plan Assessment/Plan 1. HTN, On Losartan 100 daily and prn Clonidine 2. Leg edema, due to cellulitis and varicose veins. Echo EF 60% 3. Right leg cellulitis. Leg elevation and Abx 4. Sepsis, fevers, leukocytosis on Abx per Dr Farah 5. DM DW RN Subjective Subjective Still has right leg pain, edema and cellulitis . No CP or SOB Objective Last 24 Hour Vital Signs Date Time Temp Pulse Resp B/P (MAP) Pulse Ox O2 Delivery O2 Flow Rate FiO2 07/21/19 08:45 127/78 07/21/19 08:00 98.3 85 20 127/78 (94) 96 07/21/19 04:00 98.2 79 21 138/80 (99) 98 07/21/19 00:00 98.4 82 21 140/79 (99) 99 07/20/19 21:00 Room Air 07/20/19 20:00 99.1 95 20 146/83 (104) 97 07/20/19 16:00 97.5 87 22 130/76 (94) 98 07/20/19 11:57 98.4 89 22 141/89 (106) 99 Intake and Output 07/20/19 07/21/19 19:00 07:00 Intake Total 985.0 ml 1821.5 ml Output Total 900 ml Balance 985.0 ml 921.5 ml Intake Oral 1200 ml IV Total 985.0 ml 621.5 ml Output Urine Total 900 ml # Voids 7 Microbiology Date/Time Source Procedure Growth Status 07/19/19 00:54 Sputum Induced Gram Stain - Final Complete 07/19/19 00:54 Sputum Induced Sputum Culture - Final CULTURE NOT PERFORMED ... Complete Objective General Appearance: alert, moderate distress Head: normocephalic, atraumatic Eyes: bilateral eye PERRL, bilateral eye EOMI HEENT: No JVD Respiratory: lungs clear, no respiratory distress, no retraction, no accessory muscle use Cardiovascular : Tachycardia, no edema, no gallop, no murmur, tachycardia Gastrointestinal: non tender, soft, no guarding, no rebound EXT: 1st big left toe amputation, healed, plantar ulcer left foot. Right Leg cellulitis Neurologic: alert, oriented x3 Flash Rehman MD Jul 21, 2019 10:44
[2019-07-21 12:00] VITALS: BP 117/82
[2019-07-21] MEDS: Vancomycin 1.5gm/NS Premix 275 ML IVPB SCH ×2 (12:16)
--- NOTE | 2019-07-21 12:52 | NUR ---
[employer] NOTE JOLIE met w/ pt to discuss dc planning. Pt plans to go to his friend Linden Samayoa's house (#[phone]) at [address] [place] [address] upon DC. Per pt, Linden visited pt a few days ago and agreed to have pt at his house. Pt does not share any concern/needs at this time. SW to F/U as needed. Signed: 07/21/19 at 1254 by TIARA DAVE <Co-Signature Required>
--- NOTE | 2019-07-21 15:05 | NUR ---
CASE MANAGEMENT:REVIEW SI;SEVERE SEPSIS. PNA. RLE CELLULITIIS. 98.5 89 21 140/79 96% ON RA IS;AZITHROMYCIN IV Q24 HRS ZOSYN IV Q8 HRS VANCOMYCIN IV Q12 HRS MED SURG STATUS DCP;FROM HOME
--- NOTE | 2019-07-21 15:17 | Consultation ---
History of Present Illness General Date patient seen: Jul 21, 2019 Reason for Hospitalization: Flu Like Symptoms Present Illness HPI Is a very pleasant 54-year-old male who presented lymph medics letter with cough and sputum presumed to have community-acquired pneumonia admitted further care and management. During admission identified to have right lower extremity cellulitis and surgery called to [facility] and assist with care. Patient seen, patient eval, chart reviewed. Labs reviewed. Imaging reviewed. Allergies: Coded Allergies: No Known Allergies (Unverified , 07/17/19) Medication History Scheduled Atorvastatin Calcium* (Atorvastatin Calcium*), 40 MG ORAL BEDTIME, (Reported) Glipizide* (Glipizide*), 10 MG ORAL BIDAC, (Reported) Losartan Potassium* (Losartan Potassium*), 100 MG ORAL DAILY, (Reported) Metformin Hcl* (Metformin Hcl*), 1,000 MG ORAL DAILY, (Reported) Tamsulosin HCl (Flomax), 0.4 MG ORAL DAILY, (Reported) Patient History History Provided By: Patient, Medical Record, PMD Healthcare decision maker Resuscitation status Full Code Advanced Directive on File Past Medical/Surgical History Past Medical/Surgical History: (1) Pneumonia (2) Sepsis (3) Severe sepsis (4) ALFONSO (acute kidney injury) (5) Uncontrolled type 2 DM with peripheral circulatory disorder (6) Cellulitis of right lower extremity (7) HTN (hypertension) (8) Diastolic CHF (9) Diabetic ulcer of right foot Review of Systems Review of Symptoms General ROS: no weight loss or fever Psychological ROS: no depression or mood changes, no memory loss Ophthalmic ROS: no visual changes or eye irritation ENT ROS: no nasal congestion, hearing loss, dizziness Allergy and Immunology ROS: no allergic symptoms or urticaria Hematological and Lymphatic ROS: no swollen glands, unusual bleeding or bruising Endocrine ROS: no polyuria, polydipsia, weight changes, temperature intolerance Respiratory ROS: no cough, shortness of breath, or wheezing Cardiovascular ROS: no chest pain or dyspnea on exertion Gastrointestinal ROS: denies abdominal pain, bright red blood in stool. Musculoskeletal ROS: no myalgias or arthralgias Neurological ROS: no TIA or stroke symptoms Dermatological ROS: no new or changing skin lesions, rashes or pruritis Physical Exam Physical Exam General appearance: alert, cooperative, no distress, appears stated age Head: Normocephalic, without obvious abnormality, atraumatic Eyes: conjunctivae/corneas clear. PERRL, EOM's intact. Fundi benign Throat: Lips, mucosa, and tongue normal. Teeth and gums normal Neck: supple, symmetrical, trachea midline, no adenopathy, thyroid: not enlarged, symmetric, no tenderness/mass/nodules, no carotid bruit and no JVD Lungs: clear to auscultation bilaterally Heart: regular rate and rhythm, S1, S2 normal, no murmur, click, rub or gallop Abdomen: soft, non-tender. Bowel sounds normal. No masses, no organomegaly Extremities: extremities right cellulitis Pulses: 2+ and symmetric Skin: Skin color, texture, turgor normal. No rashes or lesions Neurologic: Grossly normal Last 24 Hour Vital Signs Date Time Temp Pulse Resp B/P (MAP) Pulse Ox O2 Delivery O2 Flow Rate FiO2 07/21/19 12:00 98.5 89 20 117/82 (94) 96 07/21/19 08:45 127/78 07/21/19 08:00 98.3 85 20 127/78 (94) 96 07/21/19 04:00 98.2 79 21 138/80 (99) 98 07/21/19 00:00 98.4 82 21 140/79 (99) 99 07/20/19 21:00 Room Air 07/20/19 20:00 99.1 95 20 146/83 (104) 97 07/20/19 16:00 97.5 87 22 130/76 (94) 98 Intake and Output 07/20/19 07/21/19 19:00 07:00 Intake Total 985.0 ml 1821.5 ml Output Total 900 ml Balance 985.0 ml 921.5 ml Intake Oral 1200 ml IV Total 985.0 ml 621.5 ml Output Urine Total 900 ml # Voids 7 Laboratory Tests Test 07/21/19 11:00 Vancomycin Level Trough 13.1 ug/mL (5.0-12.0) H Height (Feet): 6 Height (Inches): 2.00 Weight (Pounds): 251 Medications Current Medications Medications (Trade) Dose Ordered Sig/Gaurav Route PRN Reason Start Time Stop Time Status Last Admin Dose Admin Acetaminophen (Tylenol) 650 mg Q4H PRN ORAL Mild Pain (Pain Scale 1-3) 07/19/19 17:53 08/18/19 17:52 07/20/19 05:13 Acetaminophen (Tylenol) 650 mg Q4H PRN ORAL fever 07/19/19 17:53 08/18/19 17:52 Albuterol/ Ipratropium (Albuterol/ Ipratropium) 3 ml Q4H PRN HHN Shortness of Breath 07/19/19 17:54 07/24/19 17:53 Atorvastatin Calcium (Lipitor) 40 mg BEDTIME ORAL 07/19/19 21:00 08/17/19 20:59 07/20/19 21:02 Azithromycin 500 mg/Sodium Chloride 275 ml @ 275 mls/hr Q24HRS IV 07/20/19 09:00 07/24/19 09:59 07/21/19 08:44 Bisacodyl (Dulcolax) 10 mg DAILYPRN PRN RECTAL Constipation 07/20/19 20:15 08/19/19 20:14 Dextrose (Dextrose 50%) 25 ml Q30M PRN IV Hypoglycemia 07/19/19 18:00 08/16/19 23:29 Dextrose (Dextrose 50%) 50 ml Q30M PRN IV Hypoglycemia 07/19/19 18:00 08/16/19 23:29 Docusate Sodium (Colace) 100 mg TWICE A DAY ORAL 07/20/19 21:00 08/19/19 20:59 07/21/19 08:45 Enoxaparin Sodium (Lovenox) 40 mg Q24H SUBQ 07/20/19 09:00 08/17/19 08:59 07/21/19 08:46 Hydromorphone HCl (Dilaudid) 1 mg Q4H PRN IVP breakthrough pain 07/19/19 17:54 07/26/19 17:53 Insulin Aspart (NovoLOG) BEFORE MEALS AND HS SUBQ 07/19/19 21:00 08/17/19 06:29 07/21/19 12:02 Insulin Aspart (NovoLOG) 3 units NOVOTIAC SUBQ 07/20/19 16:50 08/19/19 16:49 07/21/19 12:03 Lorazepam (Ativan) 1 mg Q4H PRN ORAL For Anxiety 07/19/19 17:54 07/26/19 17:53 Losartan Potassium (Cozaar) 100 mg DAILY ORAL 07/20/19 09:00 08/18/19 08:59 07/21/19 08:45 Magnesium Hydroxide (Mom) 30 ml HSPRN PRN ORAL Constipation 07/19/19 17:54 08/18/19 17:53 07/20/19 00:01 Ondansetron HCl (Zofran) 4 mg Q6H PRN IVP Nausea & Vomiting 07/19/19 17:54 08/18/19 17:53 Piperacillin Sod/ Tazobactam Sod 3.375 gm/Sodium Chloride 110 ml @ 27.5 mls/hr Q8HR IVPB 07/19/19 22:00 07/25/19 13:59 07/21/19 14:33 Polyethylene Glycol (Miralax) 17 gm DAILYPRN PRN ORAL Constipation 07/20/19 20:15 08/19/19 20:14 07/21/19 08:45 Sodium Chloride 1,000 ml @ 75 mls/hr [id number] IV 07/19/19 17:53 08/18/19 17:52 07/21/19 11:16 Tamsulosin HCl (Flomax) 0.4 mg DAILY ORAL 07/20/19 09:00 08/18/19 08:59 07/21/19 08:45 Tramadol HCl (Ultram) 50 mg Q6H PRN ORAL Severe Pain (Pain Scale 7-10) 07/20/19 12:30 07/27/19 12:29 Vancomycin HCl (Vanco rx to dose) 1 ea DAILY PRN MISC Per rx protocol 07/20/19 09:00 08/16/19 23:29 Vancomycin/Sodium Chloride 275 ml @ 184 mls/hr Q12H IVPB 07/20/19 00:00 07/25/19 00:00 07/21/19 12:16 Assessment/Plan Problem List: (1) Sepsis Assessment & Plan: likely related to pna cellulitis improving and resolving abx as per ID will follow with recs thank you Findings: Patient is status post amputation of the first digit at the level of the metatarsal phalangeal joint. There is degenerative change of the second metatarsal phalangeal joint with marked irregularity and degenerative remodeling of the second metatarsal head. There is questionably some erosive change of the second metatarsal head There is evidence of old healed fracture deformity of the distal second metatarsal shaft. The remaining digits appear unremarkable. No acute fractures. No dislocations. No definite osseous erosions, periosteal reaction, or other findings to suggest acute osteomyelitis. There is a small plantar spur. Impression: Postsurgical changes, as described Degenerative changes of the second metatarsal phalangeal joint, as described Equivocal erosive changes of the second metatarsal head, could be on the basis of degenerative change but the possibility of osteomyelitis should also be considered. ICD Codes: A41.9 - Sepsis, unspecified organism SNOMED: 87319887 Qualifiers: Qualified Codes: A41.9 - Sepsis, unspecified organism (2) Cellulitis of right lower extremity Assessment & Plan: Pt presented on admission with erythema distal/ medial R tibia. Mild swelling ,dry scabbed wound bertin R tibia. Pt stated he bumped leg a week ago and had small cut but felt wound became infected. No erythema or exudate noted from wound. (L)2.1cm x (W)0.5cm Wound plantar R foot with punched out appearance .Base of wound pale ,moist with callused borders. Small amt. serous exudate noted (L)0.6cm x (W)0.3cm x (D) 0.4cm. Recommendations: Clean wounds R tibia and plantar R foot with Betadine .Cover with Optifoam drsg Daily and prn. ICD Codes: L03.115 - Cellulitis of right lower limb SNOMED: [id number] Jasvir Mclaughlin Jul 21, 2019 15:17
[2019-07-21 16:00] VITALS: BP 132/87
--- NOTE | 2019-07-21 18:25 | Infectious Diseases Prog Note ---
Assessment/Plan Assessment/Plan ASSESSMENT AND PLAN: 1. right leg cellulitis, sepsis, ? cap, leukocytosis, fevers, hx right foot wound that is healing (per patient recent right foot MRI neg for osteomyelitis) , right great toe amputation - vancomycin and zosyn - monitor clinically - improved fevers and leukocytosis, still with some right leg cellulitis - monitor labs - wound care per surgery and protocol 2. The patient has history of diabetes. 3. Hyperlipidemia. 4. Hypertension 5. Blood sugar and blood pressure treatment per primary care team. 6. BPH. 7. History of amputation on right big toe. 8. Case was discussed with Dr. Anderson. 9. Continue treatment per primary consultants. 10. No known allergies. 11. Social history is negative. 12. Family history is noncontributory. 13. MAR was noted. 14. Case discussed with RN. 15. Orders were noted and entered. 16. Skin care protocol. Subjective Constitutional: Denies: fever Respiratory: Denies: shortness of breath Cardiovascular: Denies: chest pain Gastrointestinal/Abdominal: Denies: nausea, vomiting, diarrhea Genitourinary: Denies: dysuria, hematuria Neurologic: Denies: headache Psychiatric: Denies: depression Skin: Denies: rash Hematologic: Denies: bleeding Musculoskeletal: Reports: pain - some right leg pain Allergies: Coded Allergies: No Known Allergies (Unverified , 07/17/19) Objective Vital Signs Last 24 Hour Vital Signs Date Time Temp Pulse Resp B/P (MAP) Pulse Ox O2 Delivery O2 Flow Rate FiO2 07/21/19 16:00 98.6 87 20 132/87 (102) 96 07/21/19 12:00 98.5 89 20 117/82 (94) 96 07/21/19 09:00 Room Air 07/21/19 08:45 127/78 07/21/19 08:00 98.3 85 20 127/78 (94) 96 07/21/19 04:00 98.2 79 21 138/80 (99) 98 07/21/19 00:00 98.4 82 21 140/79 (99) 99 07/20/19 21:00 Room Air 07/20/19 20:00 99.1 95 20 146/83 (104) 97 Height (Feet): 6 Height (Inches): 2.00 Weight (Pounds): 251 General Appearance: no acute distress HEENT: normocephalic, atraumatic, anicteric Respiratory/Chest: lungs clear, normal breath sounds, no respiratory distress, no accessory muscle use Cardiovascular: normal rate, regular rhythm, no gallop/murmur, no JVD Abdomen: normal bowel sounds, soft, non tender, no organomegaly, non distended Genitourinary: other - no ford Extremities: no cyanosis, other - right leg cellulitis better but still redness noted Skin: no rash Neurologic/Psychiatric: yarn hauler II-XII grossly normal, alert, oriented x 3, responsive Lymphatic: no neck adenopathy Musculoskeletal: no effusion Objective Chest x-ray - 07/08/19 - Procedure: XRAY Chest 1v Indication: Cough Technique: One view of the chest Comparison: 07/17/2019 Findings: Is some atelectasis at the right lung base. Previously questioned interstitial congestion is no longer evident. Normal heart size. Impression: Right basilar atelectasis. No acute process otherwise Microbiology Date/Time Source Procedure Growth Status 07/17/19 19:35 Blood Blood Culture - Preliminary NO GROWTH AFTER 72 HOURS Resulted 07/19/19 00:54 Sputum Induced Gram Stain - Final Complete 07/19/19 00:54 Sputum Induced Sputum Culture - Final CULTURE NOT PERFORMED ... Complete Microbiology Date/Time Source Procedure Growth Status 07/19/19 00:54 Sputum Induced Gram Stain - Final Complete 07/19/19 00:54 Sputum Induced Sputum Culture - Final CULTURE NOT PERFORMED ... Complete Labs Test 07/19/19 07:40 07/19/19 22:40 07/20/19 04:51 07/21/19 11:00 White Blood Count 6.8 K/UL (4.8-10.8) 6.3 K/UL (4.8-10.8) Red Blood Count 4.26 M/UL (4.70-6.10) 4.08 M/UL (4.70-6.10) Hemoglobin 12.6 G/DL (14.2-18.0) 12.0 G/DL (14.2-18.0) Hematocrit 35.8 % (42.0-52.0) 34.1 % (42.0-52.0) Mean Corpuscular Volume 84 FL (80-99) 84 FL (80-99) Mean Corpuscular Hemoglobin 29.5 PG (27.0-31.0) 29.3 PG (27.0-31.0) Mean Corpuscular Hemoglobin Concent 35.2 G/DL (32.0-36.0) 35.1 G/DL (32.0-36.0) Red Cell Distribution Width 12.1 % (11.6-14.8) 12.0 % (11.6-14.8) Platelet Count 217 K/UL (150-450) 232 K/UL (150-450) Mean Platelet Volume 5.8 FL (6.5-10.1) 6.0 FL (6.5-10.1) Neutrophils (%) (Auto) 75.4 % (45.0-75.0) 70.8 % (45.0-75.0) Lymphocytes (%) (Auto) 9.6 % (20.0-45.0) 14.6 % (20.0-45.0) Monocytes (%) (Auto) 10.6 % (1.0-10.0) 8.5 % (1.0-10.0) Eosinophils (%) (Auto) 3.6 % (0.0-3.0) 5.0 % (0.0-3.0) Basophils (%) (Auto) 0.9 % (0.0-2.0) 1.1 % (0.0-2.0) Sodium Level 137 MMOL/L (136-145) 139 MMOL/L (136-145) Potassium Level 3.8 MMOL/L (3.5-5.1) 3.7 MMOL/L (3.5-5.1) Chloride Level 104 MMOL/L (98-107) 105 MMOL/L (98-107) Carbon Dioxide Level 24 MMOL/L (21-32) 27 MMOL/L (21-32) Anion Gap 10 mmol/L (5-15) 7 mmol/L (5-15) Blood Urea Nitrogen 12 mg/dL (7-18) 9 mg/dL (7-18) Creatinine 1.2 MG/DL (0.55-1.30) 1.0 MG/DL (0.55-1.30) Estimat Glomerular Filtration Rate > 60 mL/min (>60) > 60 mL/min (>60) Glucose Level 189 MG/DL (74-106) 204 MG/DL (74-106) Calcium Level 8.2 MG/DL (8.5-10.1) 8.6 MG/DL (8.5-10.1) Total Bilirubin 0.7 MG/DL (0.2-1.0) 0.5 MG/DL (0.2-1.0) Aspartate Amino Transf (AST/SGOT) 17 U/L (15-37) 16 U/L (15-37) Alanine Aminotransferase (ALT/SGPT) 17 U/L (12-78) 20 U/L (12-78) Alkaline Phosphatase 70 U/L (46-116) 69 U/L (46-116) Troponin I 0.000 ng/mL (0.000-0.056) Pro-B-Type Natriuretic Peptide 384 pg/mL (0-125) Total Protein 6.9 G/DL (6.4-8.2) 6.9 G/DL (6.4-8.2) Albumin 2.6 G/DL (3.4-5.0) 2.6 G/DL (3.4-5.0) Globulin 4.3 g/dL 4.3 g/dL Albumin/Globulin Ratio 0.6 (1.0-2.7) 0.6 (1.0-2.7) Thyroid Stimulating Hormone (TSH) 1.744 uiU/mL (0.358-3.740) Vancomycin Level Trough 9.5 ug/mL (5.0-12.0) 13.1 ug/mL (5.0-12.0) Laboratory Tests Test 07/21/19 11:00 Vancomycin Level Trough 13.1 ug/mL (5.0-12.0) H Current Medications Medications (Trade) Dose Ordered Sig/Gaurav Route PRN Reason Start Time Stop Time Status Last Admin Dose Admin Acetaminophen (Tylenol) 650 mg Q4H PRN ORAL Mild Pain (Pain Scale 1-3) 07/19/19 17:53 08/18/19 17:52 07/20/19 05:13 Acetaminophen (Tylenol) 650 mg Q4H PRN ORAL fever 07/19/19 17:53 08/18/19 17:52 Albuterol/ Ipratropium (Albuterol/ Ipratropium) 3 ml Q4H PRN HHN Shortness of Breath 07/19/19 17:54 07/24/19 17:53 Atorvastatin Calcium (Lipitor) 40 mg BEDTIME ORAL 07/19/19 21:00 08/17/19 20:59 07/20/19 21:02 Azithromycin (Zithromax) 500 mg DAILY ORAL 07/22/19 09:00 07/24/19 08:59 Bisacodyl (Dulcolax) 10 mg DAILYPRN PRN RECTAL Constipation 07/20/19 20:15 08/19/19 20:14 Dextrose (Dextrose 50%) 25 ml Q30M PRN IV Hypoglycemia 07/19/19 18:00 08/16/19 23:29 Dextrose (Dextrose 50%) 50 ml Q30M PRN IV Hypoglycemia 07/19/19 18:00 08/16/19 23:29 Docusate Sodium (Colace) 100 mg TWICE A DAY ORAL 07/20/19 21:00 08/19/19 20:59 07/21/19 08:45 Enoxaparin Sodium (Lovenox) 40 mg Q24H SUBQ 07/20/19 09:00 08/17/19 08:59 07/21/19 08:46 Hydromorphone HCl (Dilaudid) 1 mg Q4H PRN IVP breakthrough pain 07/19/19 17:54 07/26/19 17:53 Insulin Aspart (NovoLOG) BEFORE MEALS AND HS SUBQ 07/19/19 21:00 08/17/19 06:29 07/21/19 17:16 Insulin Aspart (NovoLOG) 3 units NOVOTIAC SUBQ 07/20/19 16:50 08/19/19 16:49 07/21/19 17:17 Lorazepam (Ativan) 1 mg Q4H PRN ORAL For Anxiety 07/19/19 17:54 07/26/19 17:53 Losartan Potassium (Cozaar) 100 mg DAILY ORAL 07/20/19 09:00 08/18/19 08:59 07/21/19 08:45 Magnesium Hydroxide (Mom) 30 ml HSPRN PRN ORAL Constipation 07/19/19 17:54 08/18/19 17:53 07/20/19 00:01 Ondansetron HCl (Zofran) 4 mg Q6H PRN IVP Nausea & Vomiting 07/19/19 17:54 08/18/19 17:53 Piperacillin Sod/ Tazobactam Sod 3.375 gm/Sodium Chloride 110 ml @ 27.5 mls/hr Q8HR IVPB 07/19/19 22:00 07/25/19 13:59 07/21/19 14:33 Polyethylene Glycol (Miralax) 17 gm DAILYPRN PRN ORAL Constipation 07/20/19 20:15 08/19/19 20:14 07/21/19 08:45 Sodium Chloride 1,000 ml @ 75 mls/hr [id number] IV 07/19/19 17:53 08/18/19 17:52 07/21/19 11:16 Tamsulosin HCl (Flomax) 0.4 mg DAILY ORAL 07/20/19 09:00 08/18/19 08:59 07/21/19 08:45 Tramadol HCl (Ultram) 50 mg Q6H PRN ORAL Severe Pain (Pain Scale 7-10) 07/20/19 12:30 07/27/19 12:29 Vancomycin HCl (Vanco rx to dose) 1 ea DAILY PRN MISC Per rx protocol 07/20/19 09:00 08/16/19 23:29 Vancomycin/Sodium Chloride 275 ml @ 184 mls/hr Q12H IVPB 07/20/19 00:00 07/25/19 00:00 07/21/19 12:16 Shannan rG MD Jul 21, 2019 18:25
--- NOTE | 2019-07-21 19:30 | NUR ---
HAND-OFF: Report given to
[2019-07-21 20:32] VITALS: BP 118/70
--- NOTE | 2019-07-21 20:42 | NUR ---
NURSE NOTES: Received patient awake, alert, verbal, resting in bed, comfortable.
[2019-07-21] MEDS: Atorvastatin 20mg tab ORAL SCH (21:20)
[2019-07-22 00:07] VITALS: BP 120/78
[2019-07-22] MEDS: Vancomycin 1.5gm/NS Premix 275 ML IVPB SCH ×3 (01:30→23:58)
[2019-07-22 04:00] VITALS: BP 149/81
[2019-07-22] MEDS: Piperacillin/Tazobactam 3.375 GM in NS 110 ML IVPB SCH ×4 (05:00→20:55)
[2019-07-22] MEDS: NovoLOG Insulin Flexpen SUBQ SCH ×7 (06:18→20:56)
--- NOTE | 2019-07-22 07:22 | NUR ---
HAND-OFF: Report given to Karina Meeks RN.
[2019-07-22 07:30] LABS: ANION GAP 9 mmol/L (5-15); BLOOD UREA NITROGEN 7 mg/dL (7-18); CALCIUM 8.9 MG/DL (8.5-10.1); CARBON DIOXIDE 27 MMOL/L (21-32); CHLORIDE 104 MMOL/L (98-107); POTASSIUM 4.1 MMOL/L (3.5-5.1); SODIUM 140 MMOL/L (136-145)
--- NOTE | 2019-07-22 07:31 | NUR ---
NURSE NOTES: Received patient in bed awake. No SOB or acute distress. IV line intact and patent. Wound dressings intact. HOB elevated. Bed locked in lowest position. Call light within reach. Will continue plan of care.
[2019-07-22 07:44] LABS: BASOPHILS % (AUTO) 1.1 % (0.0-2.0); EOSINOPHILS % (AUTO) 5.5 % (0.0-3.0); HEMATOCRIT 35.2 % (42.0-52.0); HEMOGLOBIN 12.5 G/DL (14.2-18.0); LYMPHOCYTES % (AUTO) 12.9 % (20.0-45.0); MEAN CORPUSCULAR VOLUME 83 FL (80-99); MONOCYTES % (AUTO) 8.7 % (1.0-10.0); NEUTROPHILS % (AUTO) 71.8 % (45.0-75.0); PLATELET COUNT 310 K/UL (150-450); RED BLOOD COUNT 4.23 M/UL (4.70-6.10); RED CELL DISTRIBUTION WIDTH 11.9 % (11.6-14.8); WHITE BLOOD COUNT 7.2 K/UL (4.8-10.8)
[2019-07-22 08:00] VITALS: BP 136/91
[2019-07-22] MEDS: Azithromycin 250mg tab ORAL SCH (09:22)
[2019-07-22] MEDS: Docusate 100mg cap ORAL SCH ×2 (09:22→17:31)
[2019-07-22] MEDS: Losartan 50mg tab ORAL SCH (09:23)
[2019-07-22] MEDS: Tamsulosin 0.4mg cap ORAL SCH (09:24)
[2019-07-22] MEDS: Enoxaparin 40mg Inj SUBQ SCH (09:24)
[2019-07-22 12:00] VITALS: BP 140/88
--- NOTE | 2019-07-22 15:16 | Surgery Progress Note ---
Surgery Progress Note Subjective Additional Comments no acute events comfortable stable labs noted MRI pending Objective Last 24 Hour Vital Signs Date Time Temp Pulse Resp B/P (MAP) Pulse Ox O2 Delivery O2 Flow Rate FiO2 07/22/19 12:00 98.3 84 20 140/88 (105) 97 07/22/19 09:23 136/91 07/22/19 09:00 Room Air 07/22/19 08:00 98.1 86 19 136/91 (106) 96 07/22/19 04:00 98.0 74 19 149/81 (103) 98 07/22/19 00:07 97.8 84 19 120/78 (92) 99 07/21/19 21:00 Room Air 07/21/19 20:32 98.8 80 19 118/70 (86) 97 07/21/19 16:00 98.6 87 20 132/87 (102) 96 I&O Intake and Output 07/21/19 07/22/19 19:00 07:00 Intake Total 1832.5 ml 787.5 ml Balance 1832.5 ml 787.5 ml Intake Oral 840 ml IV Total 992.5 ml 787.5 ml # Voids 4 3 Dressing: other Wound: other Drains: other Cardiovascular: RSR Respiratory: decreased breath sounds Abdomen: soft, present bowel sounds, non-distended Extremities: no cyanosis Laboratory Tests Test 07/22/19 06:20 White Blood Count 7.2 K/UL (4.8-10.8) Red Blood Count 4.23 M/UL (4.70-6.10) L Hemoglobin 12.5 G/DL (14.2-18.0) L Hematocrit 35.2 % (42.0-52.0) L Mean Corpuscular Volume 83 FL (80-99) Mean Corpuscular Hemoglobin 29.5 PG (27.0-31.0) Mean Corpuscular Hemoglobin Concent 35.5 G/DL (32.0-36.0) Red Cell Distribution Width 11.9 % (11.6-14.8) Platelet Count 310 K/UL (150-450) Mean Platelet Volume 5.5 FL (6.5-10.1) L Neutrophils (%) (Auto) 71.8 % (45.0-75.0) Lymphocytes (%) (Auto) 12.9 % (20.0-45.0) L Monocytes (%) (Auto) 8.7 % (1.0-10.0) Eosinophils (%) (Auto) 5.5 % (0.0-3.0) H Basophils (%) (Auto) 1.1 % (0.0-2.0) Erythrocyte Sedimentation Rate 95 MM/HR (0-20) H Sodium Level 140 MMOL/L (136-145) Potassium Level 4.1 MMOL/L (3.5-5.1) Chloride Level 104 MMOL/L (98-107) Carbon Dioxide Level 27 MMOL/L (21-32) Anion Gap 9 mmol/L (5-15) Blood Urea Nitrogen 7 mg/dL (7-18) Creatinine 1.0 MG/DL (0.55-1.30) Estimat Glomerular Filtration Rate > 60 mL/min (>60) Glucose Level 220 MG/DL (74-106) H Calcium Level 8.9 MG/DL (8.5-10.1) C-Reactive Protein, Quantitative 5.1 mg/dL (0.00-0.90) H Plan Problems: (1) Sepsis Assessment & Plan: likely related to pna cellulitis improving and resolving abx as per ID will follow with recs thank you Findings: Patient is status post amputation of the first digit at the level of the metatarsal phalangeal joint. There is degenerative change of the second metatarsal phalangeal joint with marked irregularity and degenerative remodeling of the second metatarsal head. There is questionably some erosive change of the second metatarsal head There is evidence of old healed fracture deformity of the distal second metatarsal shaft. The remaining digits appear unremarkable. No acute fractures. No dislocations. No definite osseous erosions, periosteal reaction, or other findings to suggest acute osteomyelitis. There is a small plantar spur. Impression: Postsurgical changes, as described Degenerative changes of the second metatarsal phalangeal joint, as described Equivocal erosive changes of the second metatarsal head, could be on the basis of degenerative change but the possibility of osteomyelitis should also be considered. (2) Cellulitis of right lower extremity Assessment & Plan: Pt presented on admission with erythema distal/ medial R tibia. Mild swelling ,dry scabbed wound bertin R tibia. Pt stated he bumped leg a week ago and had small cut but felt wound became infected. No erythema or exudate noted from wound. (L)2.1cm x (W)0.5cm Wound plantar R foot with punched out appearance .Base of wound pale ,moist with callused borders. Small amt. serous exudate noted (L)0.6cm x (W)0.3cm x (D) 0.4cm. Recommendations: Clean wounds R tibia and plantar R foot with Betadine .Cover with Optifoam drsg Daily and prn. Additional Comments Pending MRI RashadstephaniJasvir Jul 22, 2019 15:16
[2019-07-22 16:00] VITALS: BP 134/70
--- NOTE | 2019-07-22 18:00 | General Progress Note ---
Assessment/Plan Status: stable, progressing Assessment/Plan: assessment Subjective Allergies: Coded Allergies: No Known Allergies (Unverified , 07/17/19) Objective Last 24 Hour Vital Signs Date Time Temp Pulse Resp B/P (MAP) Pulse Ox O2 Delivery O2 Flow Rate FiO2 07/22/19 16:00 98.3 70 18 134/70 (91) 96 07/22/19 12:00 98.3 84 20 140/88 (105) 97 07/22/19 09:23 136/91 07/22/19 09:00 Room Air 07/22/19 08:00 98.1 86 19 136/91 (106) 96 07/22/19 04:00 98.0 74 19 149/81 (103) 98 07/22/19 00:07 97.8 84 19 120/78 (92) 99 07/21/19 21:00 Room Air 07/21/19 20:32 98.8 80 19 118/70 (86) 97 Intake and Output 07/21/19 07/22/19 19:00 07:00 Intake Total 1832.5 ml 787.5 ml Balance 1832.5 ml 787.5 ml Intake Oral 840 ml IV Total 992.5 ml 787.5 ml # Voids 4 3 Laboratory Tests 07/22/19 06:20: White Blood Count 7.2, Red Blood Count 4.23L, Hemoglobin 12.5L, Hematocrit 35.2L , Mean Corpuscular Volume 83, Mean Corpuscular Hemoglobin 29.5, Mean Corpuscular Hemoglobin Concent 35.5, Red Cell Distribution Width 11.9, Platelet Count 310, Mean Platelet Volume 5.5L, Neutrophils (%) (Auto) 71.8, Lymphocytes ( %) (Auto) 12.9L, Monocytes (%) (Auto) 8.7, Eosinophils (%) (Auto) 5.5H, Basophils (%) (Auto) 1.1, Erythrocyte Sedimentation Rate 95H, Sodium Level 140, Potassium Level 4.1, Chloride Level 104, Carbon Dioxide Level 27, Anion Gap 9, Blood Urea Nitrogen 7, Creatinine 1.0, Estimat Glomerular Filtration Rate > 60, Glucose Level 220H, Calcium Level 8.9, C-Reactive Protein, Quantitative 5.1H Height (Feet): 6 Height (Inches): 2.00 Weight (Pounds): 251 Young,Lavinia D.O. Jul 22, 2019 18:00
--- NOTE | 2019-07-22 18:00 | NUR ---
NURSE NOTES: Patient transported to MRI via wheelchair.
--- NOTE | 2019-07-22 18:51 | General Progress Note ---
Assessment/Plan Status: stable, progressing Assessment/Plan: Assessment #RLE Cellulitis w/ elevated ESR in the setting of previous Osteo s/p Digit Amputation #DMII, 9.7 A1C, not on Insulin at home #Diastolic CHF w/ associated HTN , preserved EF of 60% #ALFONSO-Resolved #BPH Plan Consultants include ID, Surgery, Cardiology Continue Vancomycin and Zosyn, Bell Cx MRI given hx of Osteo and Elevated ESR Continue Alejo-Inh for renal protection, and Atorvastatin Weight based insulin dosing, goal blood sugar less than 160 while inpatient, adjust as needed Tamsulosin DVT ppx Diet as tolerated Subjective Date patient seen: Jul 22, 2019 Time patient seen: 10:00 Constitutional: Reports: other - RLE leg pain Allergies: Coded Allergies: No Known Allergies (Unverified , 07/17/19) Subjective Patient states he is feeling better, however his ESR has returned elevated. He stated that when he last had his MRI the leg did not look like it currently does , so patient will need MRI to r/o deeper tissue infections and Osteo, given he has a hx of Osteo and is Diabetic Objective Last 24 Hour Vital Signs Date Time Temp Pulse Resp B/P (MAP) Pulse Ox O2 Delivery O2 Flow Rate FiO2 07/22/19 16:00 98.3 70 18 134/70 (91) 96 07/22/19 12:00 98.3 84 20 140/88 (105) 97 07/22/19 09:23 136/91 07/22/19 09:00 Room Air 07/22/19 08:00 98.1 86 19 136/91 (106) 96 07/22/19 04:00 98.0 74 19 149/81 (103) 98 07/22/19 00:07 97.8 84 19 120/78 (92) 99 07/21/19 21:00 Room Air 07/21/19 20:32 98.8 80 19 118/70 (86) 97 Intake and Output 07/21/19 07/22/19 19:00 07:00 Intake Total 1832.5 ml 787.5 ml Balance 1832.5 ml 787.5 ml Intake Oral 840 ml IV Total 992.5 ml 787.5 ml # Voids 4 3 Laboratory Tests 07/22/19 06:20: White Blood Count 7.2, Red Blood Count 4.23L, Hemoglobin 12.5L, Hematocrit 35.2L , Mean Corpuscular Volume 83, Mean Corpuscular Hemoglobin 29.5, Mean Corpuscular Hemoglobin Concent 35.5, Red Cell Distribution Width 11.9, Platelet Count 310, Mean Platelet Volume 5.5L, Neutrophils (%) (Auto) 71.8, Lymphocytes ( %) (Auto) 12.9L, Monocytes (%) (Auto) 8.7, Eosinophils (%) (Auto) 5.5H, Basophils (%) (Auto) 1.1, Erythrocyte Sedimentation Rate 95H, Sodium Level 140, Potassium Level 4.1, Chloride Level 104, Carbon Dioxide Level 27, Anion Gap 9, Blood Urea Nitrogen 7, Creatinine 1.0, Estimat Glomerular Filtration Rate > 60, Glucose Level 220H, Calcium Level 8.9, C-Reactive Protein, Quantitative 5.1H Height (Feet): 6 Height (Inches): 2.00 Weight (Pounds): 251 General Appearance: WD/WN, no apparent distress EENT: PERRL/EOMI Cardiovascular: normal rate, regular rhythm Respiratory/Chest: lungs clear, normal breath sounds Abdomen: non tender, soft Extremities: other - RLE w/ pos surgical changes on toe, leg/ torres w/ circumfrential Erythema Neurologic: contract designer II-XII grossly normal Skin: other - see Lavinia Diaz D.O. Jul 22, 2019 18:51
--- NOTE | 2019-07-22 19:20 | NUR ---
HAND-OFF: Report given to
--- NOTE | 2019-07-22 19:27 | Diagnostic Imaging Report ---
EXAM: MR Right Lower Extremity Without Intravenous Contrast, Tibia and Fibula CLINICAL HISTORY: OSTEOMY TECHNIQUE: Multiplanar magnetic resonance images of the right tibia and fibula without intravenous contrast. COMPARISON: No relevant prior studies available. FINDINGS: Bones/joints: Normal marrow signal. No fracture. No osteomyelitis. No dislocation. Soft tissues: Circumferential subcutaneous soft tissue edema most pronounced posteriorly. There is a skin marker overlying the medial aspect of the distal third of the left lower extremity. No focal underlying abnormality. Muscular atrophy. IMPRESSION: 1. No evidence of osteomyelitis.
[2019-07-22 20:00] VITALS: BP_SYST 137; BP_SYST 151; BP_DIAS 68; BP_DIAS 90
[2019-07-22] MEDS: Atorvastatin 20mg tab ORAL SCH (20:55)
[2019-07-23] VITALS (7 sets, daily range): BP systolic 136–152; BP diastolic 64–92
[2019-07-23] MEDS: Vancomycin 1.5gm/NS Premix 275 ML IVPB SCH ×2 (00:59→12:10)
[2019-07-23] MEDS: Piperacillin/Tazobactam 3.375 GM in NS 110 ML IVPB SCH ×3 (05:07→21:08)
[2019-07-23] MEDS: NovoLOG Insulin Flexpen SUBQ SCH ×6 (06:07→21:08)
--- NOTE | 2019-07-23 07:28 | NUR ---
HAND-OFF: Report given to Vale Wright RN.
--- NOTE | 2019-07-23 07:50 | NUR ---
NURSE NOTES: Patient awake, alert x4; on room air, no sing of distress and shortness of breath; no sing of chest pain; IV Left For-Arm 22G NS 75cc running; bed at lowest position, side rails up x2, breaks engaged; call light within reach; will keep monitoring.
[2019-07-23 08:23] LABS: BASOPHILS % (AUTO) 1.1 % (0.0-2.0); EOSINOPHILS % (AUTO) 5.6 % (0.0-3.0); HEMATOCRIT 37.2 % (42.0-52.0); HEMOGLOBIN 12.9 G/DL (14.2-18.0); LYMPHOCYTES % (AUTO) 11.5 % (20.0-45.0); MEAN CORPUSCULAR VOLUME 84 FL (80-99); MONOCYTES % (AUTO) 6.4 % (1.0-10.0); NEUTROPHILS % (AUTO) 75.4 % (45.0-75.0); PLATELET COUNT 357 K/UL (150-450); RED BLOOD COUNT 4.43 M/UL (4.70-6.10); RED CELL DISTRIBUTION WIDTH 12.1 % (11.6-14.8)
[2019-07-23] MEDS: Docusate 100mg cap ORAL SCH ×2 (08:27→17:34)
[2019-07-23] MEDS: Tamsulosin 0.4mg cap ORAL SCH (08:28)
[2019-07-23] MEDS: Enoxaparin 40mg Inj SUBQ SCH (08:28)
[2019-07-23] MEDS: Losartan 50mg tab ORAL SCH (08:28)
[2019-07-23] MEDS: Azithromycin 250mg tab ORAL SCH (08:28)
[2019-07-23 09:13] LABS: ALANINE AMINOTRANSFERASE 59 U/L (12-78); ALBUMIN 2.7 G/DL (3.4-5.0); ALBUMIN/GLOBULIN RATIO 0.6 (1.0-2.7); ALKALINE PHOSPHATASE 88 U/L (46-116); ANION GAP 13 mmol/L (5-15); ASPARTATE AMINO TRANSFERASE 37 U/L (15-37); BILIRUBIN,TOTAL 0.5 MG/DL (0.2-1.0); BLOOD UREA NITROGEN 5 mg/dL (7-18); CALCIUM 9.1 MG/DL (8.5-10.1); CARBON DIOXIDE 24 MMOL/L (21-32); CHLORIDE 103 MMOL/L (98-107); PHOSPHORUS 2.9 MG/DL (2.5-4.9); POTASSIUM 4.1 MMOL/L (3.5-5.1); SODIUM 140 MMOL/L (136-145)
--- NOTE | 2019-07-23 10:37 | Cardiac Electrophysiology PN ---
Assessment/Plan Assessment/Plan 1. HTN, On Losartan 100 daily and prn Clonidine 2. Leg edema, due to cellulitis and varicose veins. EF 60% 3. Right leg cellulitis. Leg elevation and Abx much better 4. Sepsis, fevers, leukocytosis on Abx per Dr Farah 5. DM DW RN Subjective Subjective Right leg pain, edema and cellulitis significantly improving . No CP or SOB Objective Last 24 Hour Vital Signs Date Time Temp Pulse Resp B/P (MAP) Pulse Ox O2 Delivery O2 Flow Rate FiO2 07/23/19 09:00 Room Air 07/23/19 08:28 144/89 07/23/19 08:00 98.3 88 18 144/89 (107) 95 07/23/19 04:00 98.1 71 18 152/90 (110) 96 07/23/19 00:02 99.3 79 18 149/64 (92) 94 07/22/19 21:23 Room Air 07/22/19 20:00 98.2 73 19 151/90 (110) 96 07/22/19 16:00 98.3 70 18 134/70 (91) 96 07/22/19 12:00 98.3 84 20 140/88 (105) 97 Intake and Output 07/22/19 07/23/19 19:00 07:00 Intake Total 1315 ml 815.0 ml Balance 1315 ml 815.0 ml Intake Oral 1240 ml IV Total 75 ml 815.0 ml # Voids 6 Laboratory Tests Test 07/23/19 07:08 White Blood Count 9.0 K/UL (4.8-10.8) Red Blood Count 4.43 M/UL (4.70-6.10) L Hemoglobin 12.9 G/DL (14.2-18.0) L Hematocrit 37.2 % (42.0-52.0) L Mean Corpuscular Volume 84 FL (80-99) Mean Corpuscular Hemoglobin 29.2 PG (27.0-31.0) Mean Corpuscular Hemoglobin Concent 34.8 G/DL (32.0-36.0) Red Cell Distribution Width 12.1 % (11.6-14.8) Platelet Count 357 K/UL (150-450) Mean Platelet Volume 5.4 FL (6.5-10.1) L Neutrophils (%) (Auto) 75.4 % (45.0-75.0) H Lymphocytes (%) (Auto) 11.5 % (20.0-45.0) L Monocytes (%) (Auto) 6.4 % (1.0-10.0) Eosinophils (%) (Auto) 5.6 % (0.0-3.0) H Basophils (%) (Auto) 1.1 % (0.0-2.0) Sodium Level 140 MMOL/L (136-145) Potassium Level 4.1 MMOL/L (3.5-5.1) Chloride Level 103 MMOL/L (98-107) Carbon Dioxide Level 24 MMOL/L (21-32) Anion Gap 13 mmol/L (5-15) Blood Urea Nitrogen 5 mg/dL (7-18) L Creatinine 1.0 MG/DL (0.55-1.30) Estimat Glomerular Filtration Rate > 60 mL/min (>60) Glucose Level 257 MG/DL (74-106) H Calcium Level 9.1 MG/DL (8.5-10.1) Phosphorus Level 2.9 MG/DL (2.5-4.9) Magnesium Level 1.6 MG/DL (1.8-2.4) L Total Bilirubin 0.5 MG/DL (0.2-1.0) Aspartate Amino Transf (AST/SGOT) 37 U/L (15-37) Alanine Aminotransferase (ALT/SGPT) 59 U/L (12-78) Alkaline Phosphatase 88 U/L (46-116) Total Protein 7.2 G/DL (6.4-8.2) Albumin 2.7 G/DL (3.4-5.0) L Globulin 4.5 g/dL Albumin/Globulin Ratio 0.6 (1.0-2.7) L Objective General Appearance: alert, moderate distress Head: normocephalic, atraumatic Eyes: bilateral eye PERRL, bilateral eye EOMI HEENT: No JVD Respiratory: lungs clear, no respiratory distress, no retraction, no accessory muscle use Cardiovascular : Tachycardia, no edema, no gallop, no murmur, tachycardia Gastrointestinal: non tender, soft, no guarding, no rebound EXT: 1st big left toe amputation, healed, plantar ulcer left foot. Right Leg cellulitis Neurologic: alert, oriented x3 Flash Rehman MD Jul 23, 2019 10:36
--- NOTE | 2019-07-23 12:42 | Surgery Progress Note ---
Surgery Progress Note Subjective Additional Comments labs noted esr/crp elevated MRI noted, no osteo tib fib on abx Objective Last 24 Hour Vital Signs Date Time Temp Pulse Resp B/P (MAP) Pulse Ox O2 Delivery O2 Flow Rate FiO2 07/23/19 12:00 98.7 84 18 136/88 (104) 96 07/23/19 09:00 Room Air 07/23/19 08:28 144/89 07/23/19 08:00 98.3 88 18 144/89 (107) 95 07/23/19 04:00 98.1 71 18 152/90 (110) 96 07/23/19 00:02 99.3 79 18 149/64 (92) 94 07/22/19 21:23 Room Air 07/22/19 20:00 98.2 73 19 151/90 (110) 96 07/22/19 16:00 98.3 70 18 134/70 (91) 96 I&O Intake and Output 07/22/19 07/23/19 19:00 07:00 Intake Total 1315 ml 815.0 ml Balance 1315 ml 815.0 ml Intake Oral 1240 ml IV Total 75 ml 815.0 ml # Voids 6 Dressing: dry Wound: other Cardiovascular: RSR Respiratory: clear Abdomen: soft, non-tender, present bowel sounds, non-distended Extremities: edema, no cyanosis Laboratory Tests Test 07/23/19 07:08 White Blood Count 9.0 K/UL (4.8-10.8) Red Blood Count 4.43 M/UL (4.70-6.10) L Hemoglobin 12.9 G/DL (14.2-18.0) L Hematocrit 37.2 % (42.0-52.0) L Mean Corpuscular Volume 84 FL (80-99) Mean Corpuscular Hemoglobin 29.2 PG (27.0-31.0) Mean Corpuscular Hemoglobin Concent 34.8 G/DL (32.0-36.0) Red Cell Distribution Width 12.1 % (11.6-14.8) Platelet Count 357 K/UL (150-450) Mean Platelet Volume 5.4 FL (6.5-10.1) L Neutrophils (%) (Auto) 75.4 % (45.0-75.0) H Lymphocytes (%) (Auto) 11.5 % (20.0-45.0) L Monocytes (%) (Auto) 6.4 % (1.0-10.0) Eosinophils (%) (Auto) 5.6 % (0.0-3.0) H Basophils (%) (Auto) 1.1 % (0.0-2.0) Sodium Level 140 MMOL/L (136-145) Potassium Level 4.1 MMOL/L (3.5-5.1) Chloride Level 103 MMOL/L (98-107) Carbon Dioxide Level 24 MMOL/L (21-32) Anion Gap 13 mmol/L (5-15) Blood Urea Nitrogen 5 mg/dL (7-18) L Creatinine 1.0 MG/DL (0.55-1.30) Estimat Glomerular Filtration Rate > 60 mL/min (>60) Glucose Level 257 MG/DL (74-106) H Calcium Level 9.1 MG/DL (8.5-10.1) Phosphorus Level 2.9 MG/DL (2.5-4.9) Magnesium Level 1.6 MG/DL (1.8-2.4) L Total Bilirubin 0.5 MG/DL (0.2-1.0) Aspartate Amino Transf (AST/SGOT) 37 U/L (15-37) Alanine Aminotransferase (ALT/SGPT) 59 U/L (12-78) Alkaline Phosphatase 88 U/L (46-116) Total Protein 7.2 G/DL (6.4-8.2) Albumin 2.7 G/DL (3.4-5.0) L Globulin 4.5 g/dL Albumin/Globulin Ratio 0.6 (1.0-2.7) L Plan Problems: (1) Sepsis Assessment & Plan: likely related to pna cellulitis improving and resolving abx as per ID will follow with recs thank you Findings: Patient is status post amputation of the first digit at the level of the metatarsal phalangeal joint. There is degenerative change of the second metatarsal phalangeal joint with marked irregularity and degenerative remodeling of the second metatarsal head. There is questionably some erosive change of the second metatarsal head There is evidence of old healed fracture deformity of the distal second metatarsal shaft. The remaining digits appear unremarkable. No acute fractures. No dislocations. No definite osseous erosions, periosteal reaction, or other findings to suggest acute osteomyelitis. There is a small plantar spur. Impression: Postsurgical changes, as described Degenerative changes of the second metatarsal phalangeal joint, as described Equivocal erosive changes of the second metatarsal head, could be on the basis of degenerative change but the possibility of osteomyelitis should also be considered. (2) Cellulitis of right lower extremity Assessment & Plan: Pt presented on admission with erythema distal/ medial R tibia. Mild swelling ,dry scabbed wound bertin R tibia. Pt stated he bumped leg a week ago and had small cut but felt wound became infected. No erythema or exudate noted from wound. (L)2.1cm x (W)0.5cm Wound plantar R foot with punched out appearance .Base of wound pale ,moist with callused borders. Small amt. serous exudate noted (L)0.6cm x (W)0.3cm x (D) 0.4cm. Recommendations: Clean wounds R tibia and plantar R foot with Betadine .Cover with Optifoam drsg Daily and prn. MRI Noted no acute osteo tib fib Jasvir Mclaughlin Jul 23, 2019 12:42
--- NOTE | 2019-07-23 13:14 | General Progress Note ---
Assessment/Plan Status: stable, progressing Assessment/Plan: Assessment #RLE Cellulitis w/ elevated ESR in the setting of previous Osteo s/p Digit Amputation --> MRI negative for Osteo #DMII, 9.7 A1C, not on Insulin at home #Diastolic CHF w/ associated HTN , preserved EF of 60% #ALFONSO-Resolved #BPH Plan Consultants include ID, Surgery, Cardiology Continue Vancomycin and Zosyn, Bell Cx Continue Alejo-Inh for renal protection, and Atorvastatin Weight based insulin dosing, goal blood sugar less than 160 while inpatient, adjust as needed Tamsulosin DVT ppx Diet as tolerated 07/23: Patient may be discharged if ok with Consultants. Recommend oral AB for both MRSA and Pseudomonas; blood sugar control will be very important and patient will be educated prior to d/c Subjective Date patient seen: Jul 23, 2019 Time patient seen: 13:09 Allergies: Coded Allergies: No Known Allergies (Unverified , 07/17/19) All Systems: reviewed and negative except above Subjective MRI was negative for osteo, and patient is feeling better. Patient still has a lot of redness, so have asked nursing to outline area of cellulitis . If continues to improve likely d/c in am. Resumed home regimen for diabetes to see if blood sugar is controlled. If not, he may require insulin upon dc. Pending A1C Objective Last 24 Hour Vital Signs Date Time Temp Pulse Resp B/P (MAP) Pulse Ox O2 Delivery O2 Flow Rate FiO2 07/23/19 12:00 98.7 84 18 136/88 (104) 96 07/23/19 09:00 Room Air 07/23/19 08:28 144/89 07/23/19 08:00 98.3 88 18 144/89 (107) 95 07/23/19 04:00 98.1 71 18 152/90 (110) 96 07/23/19 00:02 99.3 79 18 149/64 (92) 94 07/22/19 21:23 Room Air 07/22/19 20:00 98.2 73 19 151/90 (110) 96 07/22/19 16:00 98.3 70 18 134/70 (91) 96 Intake and Output 07/22/19 07/23/19 19:00 07:00 Intake Total 1315 ml 815.0 ml Balance 1315 ml 815.0 ml Intake Oral 1240 ml IV Total 75 ml 815.0 ml # Voids 6 Laboratory Tests 07/23/19 07:08: White Blood Count 9.0, Red Blood Count 4.43L, Hemoglobin 12.9L, Hematocrit 37.2L , Mean Corpuscular Volume 84, Mean Corpuscular Hemoglobin 29.2, Mean Corpuscular Hemoglobin Concent 34.8, Red Cell Distribution Width 12.1, Platelet Count 357, Mean Platelet Volume 5.4L, Neutrophils (%) (Auto) 75.4H, Lymphocytes (%) (Auto) 11.5L, Monocytes (%) (Auto) 6.4, Eosinophils (%) (Auto) 5.6H, Basophils (%) (Auto) 1.1, Sodium Level 140, Potassium Level 4.1, Chloride Level 103, Carbon Dioxide Level 24, Anion Gap 13, Blood Urea Nitrogen 5L, Creatinine 1.0, Estimat Glomerular Filtration Rate > 60, Glucose Level 257H, Calcium Level 9.1, Phosphorus Level 2.9, Magnesium Level 1.6L, Total Bilirubin 0.5, Aspartate Amino Transf (AST/SGOT) 37, Alanine Aminotransferase (ALT/SGPT) 59, Alkaline Phosphatase 88, Total Protein 7.2, Albumin 2.7L, Globulin 4.5, Albumin/Globulin Ratio 0.6L Height (Feet): 6 Height (Inches): 2.00 Weight (Pounds): 251 Lavinia Doshi D.O. Jul 23, 2019 13:14
--- NOTE | 2019-07-23 16:51 | Infectious Diseases Prog Note ---
Assessment/Plan Assessment/Plan ASSESSMENT AND PLAN: 1. right leg cellulitis, sepsis, ? cap, leukocytosis, fevers, hx right foot wound that is healing (per patient recent right foot MRI neg for osteomyelitis) , right great toe amputation - vancomycin and zosyn - consider discharge on augmentin and bactrim x 5 days - monitor clinically - improved fevers and leukocytosis, right leg redness better - monitor labs - wound care per surgery and protocol 2. The patient has history of diabetes. 3. Hyperlipidemia. 4. Hypertension 5. Blood sugar and blood pressure treatment per primary care team. 6. BPH. 7. History of amputation on right big toe. 8. Case was discussed with Dr. Anderson. 9. Continue treatment per primary consultants. 10. No known allergies. 11. Social history is negative. 12. Family history is noncontributory. 13. MAR was noted. 14. Case discussed with RN. 15. Orders were noted and entered. 16. Skin care protocol. Subjective Constitutional: Denies: fever HEENT: Denies: congestion Respiratory: Denies: shortness of breath Gastrointestinal/Abdominal: Denies: nausea, vomiting, diarrhea Genitourinary: Denies: dysuria Neurologic: Denies: headache Psychiatric: Denies: depression Skin: Denies: rash Hematologic: Denies: bleeding Musculoskeletal: Reports: pain - less right leg pain Allergies: Coded Allergies: No Known Allergies (Unverified , 07/17/19) Objective Vital Signs Last 24 Hour Vital Signs Date Time Temp Pulse Resp B/P (MAP) Pulse Ox O2 Delivery O2 Flow Rate FiO2 07/23/19 12:00 98.7 84 18 136/88 (104) 96 07/23/19 09:00 Room Air 07/23/19 08:28 144/89 07/23/19 08:00 98.3 88 18 144/89 (107) 95 07/23/19 04:00 98.1 71 18 152/90 (110) 96 07/23/19 00:02 99.3 79 18 149/64 (92) 94 07/22/19 21:23 Room Air 07/22/19 20:00 98.2 73 19 151/90 (110) 96 Height (Feet): 6 Height (Inches): 2.00 Weight (Pounds): 251 General Appearance: no acute distress HEENT: normocephalic, atraumatic, anicteric, mucous membranes moist Respiratory/Chest: lungs clear, normal breath sounds, no respiratory distress, no accessory muscle use Cardiovascular: normal rate, regular rhythm Abdomen: normal bowel sounds, soft, non tender, no organomegaly, non distended Genitourinary: other - no ford Extremities: no cyanosis, other - right leg redness and pain better Skin: no rash Neurologic/Psychiatric: alert, oriented x 3, responsive Lymphatic: no neck adenopathy Musculoskeletal: no effusion Objective Chest x-ray - 07/08/19 - Procedure: XRAY Chest 1v Indication: Cough Technique: One view of the chest Comparison: 07/17/2019 Findings: Is some atelectasis at the right lung base. Previously questioned interstitial congestion is no longer evident. Normal heart size. Impression: Right basilar atelectasis. No acute process otherwise MRI right leg: Procedure: MRI RT Tib Fib no Contrast EXAM: MR Right Lower Extremity Without Intravenous Contrast, Tibia and Fibula CLINICAL HISTORY: OSTEOMY TECHNIQUE: Multiplanar magnetic resonance images of the right tibia and fibula without intravenous contrast. COMPARISON: No relevant prior studies available. FINDINGS: Bones/joints: Normal marrow signal. No fracture. No osteomyelitis. No dislocation. Soft tissues: Circumferential subcutaneous soft tissue edema most pronounced posteriorly. There is a skin marker overlying the medial aspect of the distal third of the left lower extremity. No focal underlying abnormality. Muscular atrophy. IMPRESSION: 1. No evidence of osteomyelitis. Microbiology Date/Time Source Procedure Growth Status 07/17/19 19:35 Blood Blood Culture - Final NO GROWTH AFTER 5 DAYS Complete 07/19/19 00:54 Sputum Induced Gram Stain - Final Complete 07/19/19 00:54 Sputum Induced Sputum Culture - Final CULTURE NOT PERFORMED ... Complete Laboratory Tests Test 07/23/19 07:08 White Blood Count 9.0 K/UL (4.8-10.8) Red Blood Count 4.43 M/UL (4.70-6.10) L Hemoglobin 12.9 G/DL (14.2-18.0) L Hematocrit 37.2 % (42.0-52.0) L Mean Corpuscular Volume 84 FL (80-99) Mean Corpuscular Hemoglobin 29.2 PG (27.0-31.0) Mean Corpuscular Hemoglobin Concent 34.8 G/DL (32.0-36.0) Red Cell Distribution Width 12.1 % (11.6-14.8) Platelet Count 357 K/UL (150-450) Mean Platelet Volume 5.4 FL (6.5-10.1) L Neutrophils (%) (Auto) 75.4 % (45.0-75.0) H Lymphocytes (%) (Auto) 11.5 % (20.0-45.0) L Monocytes (%) (Auto) 6.4 % (1.0-10.0) Eosinophils (%) (Auto) 5.6 % (0.0-3.0) H Basophils (%) (Auto) 1.1 % (0.0-2.0) Sodium Level 140 MMOL/L (136-145) Potassium Level 4.1 MMOL/L (3.5-5.1) Chloride Level 103 MMOL/L (98-107) Carbon Dioxide Level 24 MMOL/L (21-32) Anion Gap 13 mmol/L (5-15) Blood Urea Nitrogen 5 mg/dL (7-18) L Creatinine 1.0 MG/DL (0.55-1.30) Estimat Glomerular Filtration Rate > 60 mL/min (>60) Glucose Level 257 MG/DL (74-106) H Hemoglobin A1c 9.9 % (4.3-6.0) H Calcium Level 9.1 MG/DL (8.5-10.1) Phosphorus Level 2.9 MG/DL (2.5-4.9) Magnesium Level 1.6 MG/DL (1.8-2.4) L Total Bilirubin 0.5 MG/DL (0.2-1.0) Aspartate Amino Transf (AST/SGOT) 37 U/L (15-37) Alanine Aminotransferase (ALT/SGPT) 59 U/L (12-78) Alkaline Phosphatase 88 U/L (46-116) Total Protein 7.2 G/DL (6.4-8.2) Albumin 2.7 G/DL (3.4-5.0) L Globulin 4.5 g/dL Albumin/Globulin Ratio 0.6 (1.0-2.7) L Current Medications Medications (Trade) Dose Ordered Sig/Gaurav Route PRN Reason Start Time Stop Time Status Last Admin Dose Admin Acetaminophen (Tylenol) 650 mg Q4H PRN ORAL Mild Pain (Pain Scale 1-3) 07/19/19 17:53 08/18/19 17:52 07/20/19 05:13 Acetaminophen (Tylenol) 650 mg Q4H PRN ORAL fever 07/19/19 17:53 08/18/19 17:52 Albuterol/ Ipratropium (Albuterol/ Ipratropium) 3 ml Q4H PRN HHN Shortness of Breath 07/19/19 17:54 07/24/19 17:53 Atorvastatin Calcium (Lipitor) 40 mg BEDTIME ORAL 07/19/19 21:00 08/17/19 20:59 07/22/19 20:55 Azithromycin (Zithromax) 500 mg DAILY ORAL 07/22/19 09:00 07/24/19 08:59 07/23/19 08:28 Bisacodyl (Dulcolax) 10 mg DAILYPRN PRN RECTAL Constipation 07/20/19 20:15 08/19/19 20:14 Dextrose (Dextrose 50%) 25 ml Q30M PRN IV Hypoglycemia 07/19/19 18:00 08/16/19 23:29 Dextrose (Dextrose 50%) 50 ml Q30M PRN IV Hypoglycemia 07/19/19 18:00 08/16/19 23:29 Docusate Sodium (Colace) 100 mg TWICE A DAY ORAL 07/20/19 21:00 08/19/19 20:59 07/23/19 08:27 Enoxaparin Sodium (Lovenox) 40 mg Q24H SUBQ 07/20/19 09:00 08/17/19 08:59 07/23/19 08:28 Glipizide (Glucotrol) 10 mg BID ORAL 07/23/19 18:00 08/22/19 17:59 Hydromorphone HCl (Dilaudid) 1 mg Q4H PRN IVP breakthrough pain 07/19/19 17:54 07/26/19 17:53 Insulin Aspart (NovoLOG) 3 units NOVOTIAC SUBQ 07/20/19 16:50 08/19/19 16:49 07/23/19 12:13 Lorazepam (Ativan) 1 mg Q4H PRN ORAL For Anxiety 07/19/19 17:54 07/26/19 17:53 Losartan Potassium (Cozaar) 100 mg DAILY ORAL 07/20/19 09:00 08/18/19 08:59 07/23/19 08:28 Magnesium Hydroxide (Mom) 30 ml HSPRN PRN ORAL Constipation 07/19/19 17:54 08/18/19 17:53 07/20/19 00:01 Metformin HCl (Glucophage) 1,000 mg DAILY ORAL 07/24/19 09:00 08/23/19 08:59 Ondansetron HCl (Zofran) 4 mg Q6H PRN IVP Nausea & Vomiting 07/19/19 17:54 08/18/19 17:53 Piperacillin Sod/ Tazobactam Sod 3.375 gm/Sodium Chloride 110 ml @ 27.5 mls/hr Q8HR IVPB 07/19/19 22:00 07/25/19 13:59 07/23/19 15:51 Polyethylene Glycol (Miralax) 17 gm DAILYPRN PRN ORAL Constipation 07/20/19 20:15 08/19/19 20:14 07/21/19 08:45 Sodium Chloride 1,000 ml @ 75 mls/hr [id number] IV 07/19/19 17:53 08/18/19 17:52 07/22/19 12:41 Tamsulosin HCl (Flomax) 0.4 mg DAILY ORAL 07/20/19 09:00 08/18/19 08:59 07/23/19 08:28 Tramadol HCl (Ultram) 50 mg Q6H PRN ORAL Severe Pain (Pain Scale 7-10) 07/20/19 12:30 07/27/19 12:29 Vancomycin HCl (Vanco rx to dose) 1 ea DAILY PRN MISC Per rx protocol 07/20/19 09:00 08/16/19 23:29 Vancomycin/Sodium Chloride 275 ml @ 184 mls/hr Q12H IVPB 07/20/19 00:00 07/25/19 00:00 07/23/19 12:10 Shannan Gr MD Jul 23, 2019 16:50
[2019-07-23] MEDS: GlipiZIDE 5mg tab ORAL SCH (17:34)
--- NOTE | 2019-07-23 19:25 | NUR ---
HAND-OFF: Report given to AJ Rajan.
--- NOTE | 2019-07-23 19:34 | NUR ---
NURSE NOTES: Received patient awake, alert, verbal, ambulatory, sitting in a chair talking with a visitor.
[2019-07-23] MEDS: Atorvastatin 20mg tab ORAL SCH (21:07)
[2019-07-24] MEDS: Vancomycin 1.5gm/NS Premix 275 ML IVPB SCH ×2 (00:58→11:43)
[2019-07-24 04:00] VITALS: BP 145/78
[2019-07-24] MEDS: Piperacillin/Tazobactam 3.375 GM in NS 110 ML IVPB SCH ×3 (04:03→22:10)
[2019-07-24] MEDS: NovoLOG Insulin Flexpen SUBQ SCH ×5 (06:30→20:32)
[2019-07-24 06:35] LABS: BASOPHILS % (AUTO) 1.2 % (0.0-2.0); EOSINOPHILS % (AUTO) 5.5 % (0.0-3.0); HEMATOCRIT 35.7 % (42.0-52.0); HEMOGLOBIN 12.5 G/DL (14.2-18.0); LYMPHOCYTES % (AUTO) 10.8 % (20.0-45.0); MEAN CORPUSCULAR VOLUME 84 FL (80-99); NEUTROPHILS % (AUTO) 75.4 % (45.0-75.0); PLATELET COUNT 375 K/UL (150-450); RED BLOOD COUNT 4.26 M/UL (4.70-6.10); WHITE BLOOD COUNT 9.8 K/UL (4.8-10.8)
[2019-07-24 06:51] LABS: ALANINE AMINOTRANSFERASE 46 U/L (12-78); ALBUMIN 2.8 G/DL (3.4-5.0); ALBUMIN/GLOBULIN RATIO 0.6 (1.0-2.7); ALKALINE PHOSPHATASE 83 U/L (46-116); ANION GAP 8 mmol/L (5-15); ASPARTATE AMINO TRANSFERASE 26 U/L (15-37); BILIRUBIN,TOTAL 0.4 MG/DL (0.2-1.0); BLOOD UREA NITROGEN 11 mg/dL (7-18); CALCIUM 8.9 MG/DL (8.5-10.1); CARBON DIOXIDE 26 MMOL/L (21-32); CHLORIDE 106 MMOL/L (98-107); PHOSPHORUS 3.6 MG/DL (2.5-4.9); POTASSIUM 4.1 MMOL/L (3.5-5.1); SODIUM 140 MMOL/L (136-145)
--- NOTE | 2019-07-24 07:26 | NUR ---
HAND-OFF: Report given to Arnold Gunn RN.
--- NOTE | 2019-07-24 07:41 | NUR ---
NURSE NOTES: Received pt in bed, AAO x 4. RA. No c/o of pain/distress. IV on LFA 22g noted, running NS @ 75 ml/hr. Side rails x2. Bed in the lowest and locked. Call light within reach. Will continue to monitor
[2019-07-24 08:00] VITALS: BP 162/102
[2019-07-24] MEDS: GlipiZIDE 5mg tab ORAL SCH ×2 (08:08→17:52)
[2019-07-24] MEDS: Tamsulosin 0.4mg cap ORAL SCH (08:08)
[2019-07-24] MEDS: Losartan 50mg tab ORAL SCH (08:08)
[2019-07-24] MEDS: Docusate 100mg cap ORAL SCH ×2 (08:08→17:52)
[2019-07-24] MEDS: Enoxaparin 40mg Inj SUBQ SCH (08:09)
[2019-07-24] MEDS ORDERED: metFORMIN 500mg tab ORAL SCH (09:00)
[2019-07-24 12:00] VITALS: BP 156/96
--- NOTE | 2019-07-24 13:55 | Surgery Progress Note ---
Surgery Progress Note Subjective Additional Comments doing well wants to go home dc plan for today states he will follow up with his pcp outpatient Objective Last 24 Hour Vital Signs Date Time Temp Pulse Resp B/P (MAP) Pulse Ox O2 Delivery O2 Flow Rate FiO2 07/24/19 12:00 98.2 84 20 156/96 (116) 96 07/24/19 09:00 Room Air 07/24/19 08:08 162/102 07/24/19 08:00 98.1 73 20 162/102 (122) 97 07/24/19 04:00 98.5 77 18 145/78 (100) 97 07/23/19 23:47 98.6 81 18 145/90 (108) 96 07/23/19 20:21 Room Air 07/23/19 20:04 98.2 94 18 141/92 (108) 96 07/23/19 16:00 97.7 77 18 152/91 (111) 98 I&O Intake and Output 07/23/19 07/24/19 19:00 07:00 Intake Total 2125.5 ml 1217.5 ml Balance 2125.5 ml 1217.5 ml Intake Oral 1320 ml IV Total 805.5 ml 1217.5 ml # Voids 8 2 # Bowel Movements 1 Dressing: dry Wound: clean Cardiovascular: RSR Respiratory: clear Abdomen: soft, flat, non-tender Extremities: no tenderness, no cyanosis, other - cellulitis much improved Laboratory Tests Test 07/24/19 06:05 White Blood Count 9.8 K/UL (4.8-10.8) Red Blood Count 4.26 M/UL (4.70-6.10) L Hemoglobin 12.5 G/DL (14.2-18.0) L Hematocrit 35.7 % (42.0-52.0) L Mean Corpuscular Volume 84 FL (80-99) Mean Corpuscular Hemoglobin 29.3 PG (27.0-31.0) Mean Corpuscular Hemoglobin Concent 34.9 G/DL (32.0-36.0) Red Cell Distribution Width 12.0 % (11.6-14.8) Platelet Count 375 K/UL (150-450) Mean Platelet Volume 5.0 FL (6.5-10.1) L Neutrophils (%) (Auto) 75.4 % (45.0-75.0) H Lymphocytes (%) (Auto) 10.8 % (20.0-45.0) L Monocytes (%) (Auto) 7.0 % (1.0-10.0) Eosinophils (%) (Auto) 5.5 % (0.0-3.0) H Basophils (%) (Auto) 1.2 % (0.0-2.0) Sodium Level 140 MMOL/L (136-145) Potassium Level 4.1 MMOL/L (3.5-5.1) Chloride Level 106 MMOL/L (98-107) Carbon Dioxide Level 26 MMOL/L (21-32) Anion Gap 8 mmol/L (5-15) Blood Urea Nitrogen 11 mg/dL (7-18) Creatinine 1.0 MG/DL (0.55-1.30) Estimat Glomerular Filtration Rate > 60 mL/min (>60) Glucose Level 259 MG/DL (74-106) H Calcium Level 8.9 MG/DL (8.5-10.1) Phosphorus Level 3.6 MG/DL (2.5-4.9) Magnesium Level 1.7 MG/DL (1.8-2.4) L Total Bilirubin 0.4 MG/DL (0.2-1.0) Aspartate Amino Transf (AST/SGOT) 26 U/L (15-37) Alanine Aminotransferase (ALT/SGPT) 46 U/L (12-78) Alkaline Phosphatase 83 U/L (46-116) Total Protein 7.2 G/DL (6.4-8.2) Albumin 2.8 G/DL (3.4-5.0) L Globulin 4.4 g/dL Albumin/Globulin Ratio 0.6 (1.0-2.7) L Plan Problems: (1) Sepsis Assessment & Plan: likely related to pna cellulitis improving and resolving abx as per ID will follow with recs thank you Findings: Patient is status post amputation of the first digit at the level of the metatarsal phalangeal joint. There is degenerative change of the second metatarsal phalangeal joint with marked irregularity and degenerative remodeling of the second metatarsal head. There is questionably some erosive change of the second metatarsal head There is evidence of old healed fracture deformity of the distal second metatarsal shaft. The remaining digits appear unremarkable. No acute fractures. No dislocations. No definite osseous erosions, periosteal reaction, or other findings to suggest acute osteomyelitis. There is a small plantar spur. Impression: Postsurgical changes, as described Degenerative changes of the second metatarsal phalangeal joint, as described Equivocal erosive changes of the second metatarsal head, could be on the basis of degenerative change but the possibility of osteomyelitis should also be considered. (2) Cellulitis of right lower extremity Assessment & Plan: Pt presented on admission with erythema distal/ medial R tibia. Mild swelling ,dry scabbed wound bertin R tibia. Pt stated he bumped leg a week ago and had small cut but felt wound became infected. No erythema or exudate noted from wound. (L)2.1cm x (W)0.5cm Wound plantar R foot with punched out appearance .Base of wound pale ,moist with callused borders. Small amt. serous exudate noted (L)0.6cm x (W)0.3cm x (D) 0.4cm. Recommendations: Clean wounds R tibia and plantar R foot with Betadine .Cover with Optifoam drsg Daily and prn. MRI Noted no acute osteo tib fib Jasvir Mclaughlin Jul 24, 2019 13:55
--- NOTE | 2019-07-24 14:40 | Cardiac Electrophysiology PN ---
Assessment/Plan Assessment/Plan 1. HTN, On Losartan 100 daily and prn Clonidine 2. Leg edema, due to cellulitis and varicose veins. EF 60% 3. Right leg cellulitis. Leg elevation and Abx much better 4. Sepsis, fevers, leukocytosis on Abx per Dr Farah 5. DM DW RDC planning in am Subjective Subjective Right leg pain and edema improving . No CP or SOB Objective Last 24 Hour Vital Signs Date Time Temp Pulse Resp B/P (MAP) Pulse Ox O2 Delivery O2 Flow Rate FiO2 07/24/19 12:00 98.2 84 20 156/96 (116) 96 07/24/19 09:00 Room Air 07/24/19 08:08 162/102 07/24/19 08:00 98.1 73 20 162/102 (122) 97 07/24/19 04:00 98.5 77 18 145/78 (100) 97 07/23/19 23:47 98.6 81 18 145/90 (108) 96 07/23/19 20:21 Room Air 07/23/19 20:04 98.2 94 18 141/92 (108) 96 07/23/19 16:00 97.7 77 18 152/91 (111) 98 Intake and Output 07/23/19 07/24/19 19:00 07:00 Intake Total 2125.5 ml 1217.5 ml Balance 2125.5 ml 1217.5 ml Intake Oral 1320 ml IV Total 805.5 ml 1217.5 ml # Voids 8 2 # Bowel Movements 1 Laboratory Tests Test 07/24/19 06:05 White Blood Count 9.8 K/UL (4.8-10.8) Red Blood Count 4.26 M/UL (4.70-6.10) L Hemoglobin 12.5 G/DL (14.2-18.0) L Hematocrit 35.7 % (42.0-52.0) L Mean Corpuscular Volume 84 FL (80-99) Mean Corpuscular Hemoglobin 29.3 PG (27.0-31.0) Mean Corpuscular Hemoglobin Concent 34.9 G/DL (32.0-36.0) Red Cell Distribution Width 12.0 % (11.6-14.8) Platelet Count 375 K/UL (150-450) Mean Platelet Volume 5.0 FL (6.5-10.1) L Neutrophils (%) (Auto) 75.4 % (45.0-75.0) H Lymphocytes (%) (Auto) 10.8 % (20.0-45.0) L Monocytes (%) (Auto) 7.0 % (1.0-10.0) Eosinophils (%) (Auto) 5.5 % (0.0-3.0) H Basophils (%) (Auto) 1.2 % (0.0-2.0) Sodium Level 140 MMOL/L (136-145) Potassium Level 4.1 MMOL/L (3.5-5.1) Chloride Level 106 MMOL/L (98-107) Carbon Dioxide Level 26 MMOL/L (21-32) Anion Gap 8 mmol/L (5-15) Blood Urea Nitrogen 11 mg/dL (7-18) Creatinine 1.0 MG/DL (0.55-1.30) Estimat Glomerular Filtration Rate > 60 mL/min (>60) Glucose Level 259 MG/DL (74-106) H Calcium Level 8.9 MG/DL (8.5-10.1) Phosphorus Level 3.6 MG/DL (2.5-4.9) Magnesium Level 1.7 MG/DL (1.8-2.4) L Total Bilirubin 0.4 MG/DL (0.2-1.0) Aspartate Amino Transf (AST/SGOT) 26 U/L (15-37) Alanine Aminotransferase (ALT/SGPT) 46 U/L (12-78) Alkaline Phosphatase 83 U/L (46-116) Total Protein 7.2 G/DL (6.4-8.2) Albumin 2.8 G/DL (3.4-5.0) L Globulin 4.4 g/dL Albumin/Globulin Ratio 0.6 (1.0-2.7) L Objective General Appearance: alert, moderate distress Head: normocephalic, atraumatic Eyes: bilateral eye PERRL, bilateral eye EOMI HEENT: No JVD Respiratory: lungs clear, no respiratory distress, no retraction, no accessory muscle use Cardiovascular : Tachycardia, no edema, no gallop, no murmur, tachycardia Gastrointestinal: non tender, soft, no guarding, no rebound EXT: 1st big left toe amputation, healed, plantar ulcer left foot. Right Leg cellulitis Neurologic: alert, oriented x3 Flash Rehman MD Jul 24, 2019 14:40
[2019-07-24 16:00] VITALS: BP 160/97
--- NOTE | 2019-07-24 17:12 | General Progress Note ---
Assessment/Plan Status: stable, progressing Subjective Allergies: Coded Allergies: No Known Allergies (Unverified , 07/17/19) Objective Last 24 Hour Vital Signs Date Time Temp Pulse Resp B/P (MAP) Pulse Ox O2 Delivery O2 Flow Rate FiO2 07/24/19 16:00 98.8 103 20 160/97 (118) 97 07/24/19 12:00 98.2 84 20 156/96 (116) 96 07/24/19 09:00 Room Air 07/24/19 08:08 162/102 07/24/19 08:00 98.1 73 20 162/102 (122) 97 07/24/19 04:00 98.5 77 18 145/78 (100) 97 07/23/19 23:47 98.6 81 18 145/90 (108) 96 07/23/19 20:21 Room Air 07/23/19 20:04 98.2 94 18 141/92 (108) 96 Intake and Output 07/23/19 07/24/19 19:00 07:00 Intake Total 2125.5 ml 1217.5 ml Balance 2125.5 ml 1217.5 ml Intake Oral 1320 ml IV Total 805.5 ml 1217.5 ml # Voids 8 2 # Bowel Movements 1 Laboratory Tests 07/24/19 06:05: White Blood Count 9.8, Red Blood Count 4.26L, Hemoglobin 12.5L, Hematocrit 35.7L , Mean Corpuscular Volume 84, Mean Corpuscular Hemoglobin 29.3, Mean Corpuscular Hemoglobin Concent 34.9, Red Cell Distribution Width 12.0, Platelet Count 375, Mean Platelet Volume 5.0L, Neutrophils (%) (Auto) 75.4H, Lymphocytes (%) (Auto) 10.8L, Monocytes (%) (Auto) 7.0, Eosinophils (%) (Auto) 5.5H, Basophils (%) (Auto) 1.2, Sodium Level 140, Potassium Level 4.1, Chloride Level 106, Carbon Dioxide Level 26, Anion Gap 8, Blood Urea Nitrogen 11, Creatinine 1.0, Estimat Glomerular Filtration Rate > 60, Glucose Level 259H, Calcium Level 8.9, Phosphorus Level 3.6, Magnesium Level 1.7L, Total Bilirubin 0.4, Aspartate Amino Transf (AST/SGOT) 26, Alanine Aminotransferase (ALT/SGPT) 46, Alkaline Phosphatase 83, Total Protein 7.2, Albumin 2.8L, Globulin 4.4, Albumin/Globulin Ratio 0.6L Height (Feet): 6 Height (Inches): 2.00 Weight (Pounds): 251 Fish Ellis D.O. Jul 24, 2019 17:12
[2019-07-24] MEDS: metFORMIN 500mg tab ORAL SCH (17:52)
[2019-07-24] MEDS ORDERED: Levemir Flexpen SUBQ SCH (18:00)
--- NOTE | 2019-07-24 19:10 | NUR ---
HAND-OFF: Report given to AJ Fung.
--- NOTE | 2019-07-24 19:36 | NUR ---
NURSE NOTES: Received patient in bed, patient is ambulating in the hallway with steady gate. No acute distress noted, patient is able to verbalize his needs, IV site is clean dry and intact, call light is within reach, bed is lowered, locked and alarm is on. Will continue to monitor for comfort and safety.
[2019-07-24 20:00] VITALS: BP 139/98
[2019-07-24] MEDS: Atorvastatin 20mg tab ORAL SCH (20:32)
--- NOTE | 2019-07-24 21:24 | General Progress Note ---
Assessment/Plan Status: stable, progressing Assessment/Plan: 54-year-old male with uncontrolled diabetes presented with shortness of breath, fever, chills, myalgias. #Severe sepsis secondary to RLE cellulitis. Initially there were concerns regarding CAP and influenza - Resolved Judicious hydration due to vascular congestion seen on chest x-ray Antibiotics IV Zosyn, vancomycin, azithromycin. -> Discharge on Augmentin and Bactrim for 5 days per infectious disease ID consult appreciated -> cleared for discharge Per ID recs, if continues to get better, can change to oral abx, Augmentin and doxycycline for one week once better #ALFONSO- resolved Monitor renal function avoid nephrotoxic medications initially held losartan, resumed 2/ am since cr has stabilized #Uncontrolled diabetes with history of R first toe amputation check hba1c---> 9.7 insulin sliding scale Continue metformin 1 g twice daily Aspart 5 units TID AC Start lantus 8 units daily. Patient agreeable to starting lantus. #HTN #HLD #Diastolic CHF, elevated bnp losartan 100, clonidine prn continue statin 2D echocardiogram --> EF 60%, diastolic dysfunction cardiology consult appreciated I spent 38 minutes on this encounter. plan of care d/w patient, consultants and RN. Time of note may not reflect time of encounter. Subjective Allergies: Coded Allergies: No Known Allergies (Unverified , 07/17/19) Subjective No acute events overnight per nursing. Blood sugars continue to remain elevated. Patient okay with starting insulin therapy. A1c is 9.9. Patient's foot feels much better. No signs of any fever chills drainage from the wound. Review of systems: Constitutional: Denies: chills, diaphoresis, fever, malaise, weakness, other HEENT: Denies: eye pain, blurred vision, tearing, double vision, ear pain, ear discharge, nose pain, nose congestion, throat pain, throat swelling, mouth pain , mouth swelling, Cardiovascular: Denies: chest pain, edema, lightheadedness, palpitations, syncope, Respiratory: Denies: cough, orthopnea, shortness of breath, SOB with excertion , SOB at rest, sputum, stridor, wheezing, other Gastrointestinal/Abdominal: Denies: abdomen distended, abdominal pain, black stools, tarry stools, blood in stool, constipated, diarrhea, difficulty swallowing, nausea, poor appetite, poor fluid intake, rectal bleeding, vomiting , other Genitourinary: Denies: burning, discharge, frequency, flank pain, hematuria, incontinence, pain, urgency, other Neurologic/Psychiatric: Denies: anxiety, depressed, emotional problems, headache, numbness, paresthesia, pre-existing deficit, seizure, tingling, tremors, weakness, other Endocrine: Denies: excessive sweating, flushing, intolerance to cold, intolerance to heat, increased hunger, increased thirst, increased urine, unexplained weight gain, unexplained weight loss, other MSK: denies joint pains, swelling, stiffness Hematologic/Lymphatic: Denies: anemia, easy bleeding, easy bruising, other Objective Last 24 Hour Vital Signs Date Time Temp Pulse Resp B/P (MAP) Pulse Ox O2 Delivery O2 Flow Rate FiO2 07/24/19 16:00 98.8 103 20 160/97 (118) 97 07/24/19 12:00 98.2 84 20 156/96 (116) 96 07/24/19 09:00 Room Air 07/24/19 08:08 162/102 07/24/19 08:00 98.1 73 20 162/102 (122) 97 07/24/19 04:00 98.5 77 18 145/78 (100) 97 07/23/19 23:47 98.6 81 18 145/90 (108) 96 Intake and Output 07/23/19 07/24/19 19:00 07:00 Intake Total 2125.5 ml 1217.5 ml Balance 2125.5 ml 1217.5 ml Intake Oral 1320 ml IV Total 805.5 ml 1217.5 ml # Voids 8 2 # Bowel Movements 1 Laboratory Tests 07/24/19 06:05: White Blood Count 9.8, Red Blood Count 4.26L, Hemoglobin 12.5L, Hematocrit 35.7L , Mean Corpuscular Volume 84, Mean Corpuscular Hemoglobin 29.3, Mean Corpuscular Hemoglobin Concent 34.9, Red Cell Distribution Width 12.0, Platelet Count 375, Mean Platelet Volume 5.0L, Neutrophils (%) (Auto) 75.4H, Lymphocytes (%) (Auto) 10.8L, Monocytes (%) (Auto) 7.0, Eosinophils (%) (Auto) 5.5H, Basophils (%) (Auto) 1.2, Sodium Level 140, Potassium Level 4.1, Chloride Level 106, Carbon Dioxide Level 26, Anion Gap 8, Blood Urea Nitrogen 11, Creatinine 1.0, Estimat Glomerular Filtration Rate > 60, Glucose Level 259H, Calcium Level 8.9, Phosphorus Level 3.6, Magnesium Level 1.7L, Total Bilirubin 0.4, Aspartate Amino Transf (AST/SGOT) 26, Alanine Aminotransferase (ALT/SGPT) 46, Alkaline Phosphatase 83, Total Protein 7.2, Albumin 2.8L, Globulin 4.4, Albumin/Globulin Ratio 0.6L Height (Feet): 6 Height (Inches): 2.00 Weight (Pounds): 251 Objective General: WDWN male in NAD, A&O x 4 HEENT: Normocephalic cephalic atraumatic, pupils equal round reactive to light and accommodation, nares patent and no symmetrical, no tonsillar exudates, mucous membranes moist CV: Regular rate regular rhythm, no murmurs, rubs, or gallops Pulm: Lungs clear to auscultation bilaterally. No wheezes, rhonchi, or rales GI: Soft, nontender, nondistended, bowel sounds present Neuro: CN 2-12 intact bilaterally, no focal signs. Ext: No lower extremity edema bilaterally Skin: no rashes lesions or ulcers. Right plantar foot with healed callus. No pain on palpation no surrounding erythema or drainage. Right lower extremity with mild erythema on the distal medial tibia. No warmth on palpation. Msk: Joints symmetrical in upper extremity and lower extremity bilaterally, no joint swelling. Lymph: No lymphadenopathy in upper extremity and lower extremity Fish Ellis D.O. Jul 24, 2019 21:24
[2019-07-25] VITALS: BP 129/74
[2019-07-25] MEDS: Vancomycin 1.5gm/NS Premix 275 ML IVPB SCH ×2 (00:07→11:45)
[2019-07-25 04:00] VITALS: BP 129/78
[2019-07-25] MEDS: Piperacillin/Tazobactam 3.375 GM in NS 110 ML IVPB SCH ×2 (05:38→14:00)
[2019-07-25] MEDS: NovoLOG Insulin Flexpen SUBQ SCH ×4 (05:49→11:46)
--- NOTE | 2019-07-25 06:55 | NUR ---
HAND-OFF: Report given to Arnold ROCHA.
--- NOTE | 2019-07-25 07:05 | NUR ---
NURSE NOTES: Received pt in bed, AAO x 4. RA. No c/o of pain/distress. IV on RFA 22g intact and patent, running zosyn. Side rails x 2. Bed in the lowest and locked. Call light within reach. Will continue to monitor
[2019-07-25 08:00] VITALS: BP 160/101
[2019-07-25] MEDS: metFORMIN 500mg tab ORAL SCH (08:11)
[2019-07-25] MEDS: Tamsulosin 0.4mg cap ORAL SCH (08:12)
[2019-07-25] MEDS: Enoxaparin 40mg Inj SUBQ SCH (08:12)
[2019-07-25] MEDS: Docusate 100mg cap ORAL SCH (08:12)
[2019-07-25] MEDS: Losartan 50mg tab ORAL SCH (08:12)
--- NOTE | 2019-07-25 10:27 | CDS Physician Query ---
Clarification is required for compliance, coding accuracy, and to reflect severity of illness for this patient Dear Dr. Fish Cotton Date: 07/25/2019 Mobile Manager/CDS Name: Mamta Perez Clinical Documentation States: 07/24 note: 54-year-old male with uncontrolled diabetes presented with shortness of breath, fever, chills, myalgias. #Severe sepsis secondary to RLE cellulitis. Initially there were concerns regarding CAP and influenza...#Diastolic CHF, elevated bnp ...losartan 100, clonidine prn , continue statin, 2D echocardiogram --> EF 60%, diastolic dysfunction, cardiology consult appreciated Please Clarify Acuity of the Diastolic CHF: [] Acute [] Chronic [] Acute on Chronic Present on Admission: [] Yes [] No [] Clinically Undetermined Physician signature Date Please also document in your Progress Notes and/or Discharge Summary and indicate if the condition was present on admission. MTDD
--- NOTE | 2019-07-25 10:38 | NUR ---
CHARGE NURSE NOTE: CN is trying to get clearance from all specialists to d/c patient. , , were called, message left. Awaiting calls back.
--- NOTE | 2019-07-25 10:49 | Cardiac Electrophysiology PN ---
Assessment/Plan Assessment/Plan 1. HTN, continue Losartan 100 daily and prn Clonidine 2. Leg edema, due to cellulitis and varicose veins. EF 60% 3. Right leg cellulitis. Leg elevation and Abx much better 4. Sepsis, fevers, leukocytosis on Abx per Dr Farah 5. DM DW RN OK to DC Subjective Subjective Feeling better. Wants to go home. No CP or SOB Objective Last 24 Hour Vital Signs Date Time Temp Pulse Resp B/P (MAP) Pulse Ox O2 Delivery O2 Flow Rate FiO2 07/25/19 08:29 Room Air 07/25/19 08:12 160/101 07/25/19 08:00 98.2 75 20 160/101 (120) 97 07/25/19 04:00 97.9 87 18 129/78 (95) 98 07/25/19 00:00 98.9 87 18 129/74 (92) 98 07/24/19 21:15 Room Air 07/24/19 20:00 99.0 100 19 139/98 (112) 97 07/24/19 16:00 98.8 103 20 160/97 (118) 97 07/24/19 12:00 98.2 84 20 156/96 (116) 96 Intake and Output 07/24/19 07/25/19 19:00 07:00 Intake Total 1200 ml Balance 1200 ml Intake Oral 1200 ml # Voids 4 Objective General Appearance: alert, moderate distress Head: normocephalic, atraumatic Eyes: bilateral eye PERRL, bilateral eye EOMI HEENT: No JVD Respiratory: lungs clear, no respiratory distress, no retraction, no accessory muscle use Cardiovascular : Tachycardia, no edema, no gallop, no murmur, tachycardia Gastrointestinal: non tender, soft, no guarding, no rebound EXT: 1st big left toe amputation, healed, plantar ulcer left foot. Right Leg cellulitis Neurologic: alert, oriented x3 Flash Rehman MD Jul 25, 2019 10:49
[2019-07-25] MEDS ORDERED: LEVEMIR FL100 UNIT/1 SUBQ (11:33)
[2019-07-25] MEDS ORDERED: AUGMENTIN 875-1 EAC1 ORAL ×3 (11:33→14:30)
[2019-07-25] MEDS ORDERED: METFORMIN HCL1000 M1 ORAL (11:33)
[2019-07-25] MEDS ORDERED: CLONIDINE HCL0.1 MG ORAL ×2 (11:33)
[2019-07-25] MEDS ORDERED: BACTRIM DS TAB1 EAC1 ORAL ×3 (11:33→14:30)
[2019-07-25] MEDS ORDERED: NOVOLOG100 UNITS1 SUBQ (11:34)
--- NOTE | 2019-07-25 11:37 | Discharge Instructions ---
Discharge Instructions Discharge Instructions Diet: diabetic calorie control Resume Normal Activity?: Yes Follow Up Orders Complete all course of antibiotics Follow up with your primary care doctor within one week. Ask to check labs. Call your primary care doctor if your blood sugar is <70 or you have symptoms or if your blood sugars remain above 250 Hold meal coverage insulin if you don't feel well or you are not eating. If you consistently get blood sugars before lunch and dinner that are <70, call your doctor to adjust your insulin Check your blood sugar before meals and at night. Bring a log with you to your appointment with your doctor. Seek medical attention if you have worsening pain, swelling, redness, fever or chills For Congestive Heart Failure Reminder Report to your physician any weight gain of 5 pounds or more in one week. Fish Ellis D.O. Jul 25, 2019 11:37
[2019-07-25 12:00] VITALS: BP 163/99
--- NOTE | 2019-07-25 12:22 | Surgery Progress Note ---
Surgery Progress Note Subjective Symptoms: improved Objective Last 24 Hour Vital Signs Date Time Temp Pulse Resp B/P (MAP) Pulse Ox O2 Delivery O2 Flow Rate FiO2 07/25/19 12:00 98.2 83 20 163/99 (120) 98 07/25/19 08:29 Room Air 07/25/19 08:12 160/101 07/25/19 08:00 98.2 75 20 160/101 (120) 97 07/25/19 04:00 97.9 87 18 129/78 (95) 98 07/25/19 00:00 98.9 87 18 129/74 (92) 98 07/24/19 21:15 Room Air 07/24/19 20:00 99.0 100 19 139/98 (112) 97 07/24/19 16:00 98.8 103 20 160/97 (118) 97 I&O Intake and Output 07/24/19 07/25/19 19:00 07:00 Intake Total 1200 ml Balance 1200 ml Intake Oral 1200 ml # Voids 4 Dressing: other Wound: other Drains: other Cardiovascular: RSR Respiratory: clear Abdomen: soft, flat, non-tender, present bowel sounds Extremities: edema, no tenderness, no cyanosis, other - improving Plan Problems: (1) Sepsis Assessment & Plan: likely related to pna cellulitis improving and resolving abx as per ID will follow with recs thank you Findings: Patient is status post amputation of the first digit at the level of the metatarsal phalangeal joint. There is degenerative change of the second metatarsal phalangeal joint with marked irregularity and degenerative remodeling of the second metatarsal head. There is questionably some erosive change of the second metatarsal head There is evidence of old healed fracture deformity of the distal second metatarsal shaft. The remaining digits appear unremarkable. No acute fractures. No dislocations. No definite osseous erosions, periosteal reaction, or other findings to suggest acute osteomyelitis. There is a small plantar spur. Impression: Postsurgical changes, as described Degenerative changes of the second metatarsal phalangeal joint, as described Equivocal erosive changes of the second metatarsal head, could be on the basis of degenerative change but the possibility of osteomyelitis should also be considered. (2) Cellulitis of right lower extremity Assessment & Plan: Pt presented on admission with erythema distal/ medial R tibia. Mild swelling ,dry scabbed wound bertin R tibia. Pt stated he bumped leg a week ago and had small cut but felt wound became infected. No erythema or exudate noted from wound. (L)2.1cm x (W)0.5cm Wound plantar R foot with punched out appearance .Base of wound pale ,moist with callused borders. Small amt. serous exudate noted (L)0.6cm x (W)0.3cm x (D) 0.4cm. Recommendations: Clean wounds R tibia and plantar R foot with Betadine .Cover with Optifoam drsg Daily and prn. MRI Noted no acute osteo tib fib Jasvir Mclaughlin Jul 25, 2019 12:22
[2019-07-25] MEDS ORDERED: Tubing IV Secondary IV ONE (15:16)
--- NOTE | 2019-07-25 15:22 | NUR ---
NURSE NOTES: Patient was discharged to friend's home in [place] in stable condition. Per patient, the address is [address] [place], [place] [address] and patient stated that he will be leaving to [place] tomorrow. Escorted pt to first floor. ID band and IV was removed. No s/s of infection on the removal site. Belongings including his and his friends were accounted and given to patient. Prescriptions and discharge instructions were given and to follow up with primary doctor.
--- NOTE | 2019-07-26 22:19 | Discharge Summary ---
Discharge Summary Hospital Course Date of Admission Jul 18, 2019 at 06:35 Date of Discharge Jul 25, 2019 at 15:17 Admitting Diagnosis sepsis HPI Shankar Page is a 54 year old male who was admitted on Jul 18, 2019 at 06:35 for Sepsis Consultations Infectious disease, general surgery Hospital Course 54-year-old male, with diabetes presents with cough, fever/chills x1 day. Patient recently travelled from [place]. He also has shortness of breath. Denies chest pain, or palpitations. Has a lot of myalgias and thinks he has the flu. He has DM, on oral meds, hld and HTN. He had an amputation of 1st big left toe, and recent plantar infection that has healed infectious disease was consulted who recommended vancomycin Zosyn and azithromycin. An MRI was performed which showed no evidence of osteomyelitis. The patient's cellulitis greatly improved and he was without drainage, pain, redness or swelling on discharge. He was started on insulin given A1c 9.7. He was continued on metformin on discharge. He was given extensive instructions on managing his diabetes. He was discharged on Augmentin and Bactrim for 5 more days per infectious disease. He was medically stable on discharge. He did not have a home he stated he will be traveling to [place] immediately afterwards and then [place] so home health was not ordered. The patient was cleared for discharge by ID and general surgery. #Severe sepsis secondary to RLE cellulitis. Initially there were concerns regarding CAP and influenza - Resolved Judicious hydration due to vascular congestion seen on chest x-ray Antibiotics IV Zosyn, vancomycin, azithromycin. -> Discharge on Augmentin and Bactrim for 5 days per infectious disease ID consult appreciated -> cleared for discharge Per ID recs, if continues to get better, can change to oral abx, Augmentin and doxycycline for one week once better #ALFONSO- resolved Monitor renal function avoid nephrotoxic medications initially held losartan, resumed 2/13 am since cr has stabilized #Uncontrolled diabetes with history of R first toe amputation check hba1c---> 9.7 insulin sliding scale Continue metformin 1 g twice daily Aspart 5 units TID AC Start lantus 8 units daily. Patient agreeable to starting lantus. #HTN #HLD #Diastolic CHF, elevated bnp losartan 100, clonidine prn continue statin 2D echocardiogram --> EF 60%, diastolic dysfunction cardiology consult appreciated I spent 48 minutes on this discharge > 50% on care coordination and counseling. Time of note may not reflect time of encounter. Discharge Condition Upon Discharge: stable Discharge Vital Signs Last Vital Signs Date Time Temp Pulse Resp B/P (MAP) Pulse Ox O2 Delivery O2 Flow Rate FiO2 07/25/19 12:00 98.2 83 20 163/99 (120) 98 07/25/19 08:29 Room Air Discharge Disposition Patient was discharged to home Discharge Diagnoses: (1) HTN (hypertension) (2) Uncontrolled type 2 DM with peripheral circulatory disorder (3) Cellulitis of right lower extremity (4) Diastolic CHF (5) ALFONSO (acute kidney injury) (6) Poorly controlled diabetes mellitus (7) Severe sepsis (8) Cocaine abuse (9) Diabetic foot ulcer Fish Ellis D.O. Jul 26, 2019 22:19
--- NOTE | 2019-07-26 22:20 | General Progress Note ---
Assessment/Plan Status: stable, progressing Assessment/Plan: 54-year-old male with uncontrolled diabetes presented with shortness of breath, fever, chills, myalgias. #Severe sepsis secondary to RLE cellulitis. Initially there were concerns regarding CAP and influenza - Resolved Judicious hydration due to vascular congestion seen on chest x-ray Antibiotics IV Zosyn, vancomycin, azithromycin. -> Discharge on Augmentin and Bactrim for 5 days per infectious disease ID consult appreciated -> cleared for discharge Per ID recs, if continues to get better, can change to oral abx, Augmentin and doxycycline for one week once better #ALFONSO- resolved Monitor renal function avoid nephrotoxic medications initially held losartan, resumed 2/ am since cr has stabilized #Uncontrolled diabetes with history of R first toe amputation check hba1c---> 9.7 insulin sliding scale Continue metformin 1 g twice daily Aspart 5 units TID AC Start lantus 8 units daily. Patient agreeable to starting lantus. #HTN #HLD #Diastolic CHF, elevated bnp losartan 100, clonidine prn continue statin 2D echocardiogram --> EF 60%, diastolic dysfunction cardiology consult appreciated I spent 39 minutes on this encounter. plan of care d/w patient, consultants and RN. Time of note may not reflect time of encounter. Subjective Date patient seen: Jul 25, 2019 Allergies: Coded Allergies: No Known Allergies (Unverified , 07/17/19) Subjective No acute events overnight per nursing. Blood sugars continue to remain elevated. Patient okay with starting insulin therapy. A1c is 9.9. Patient's foot feels much better. No signs of any fever chills drainage from the wound. Stable for discharge today Review of systems: Constitutional: Denies: chills, diaphoresis, fever, malaise, weakness, other HEENT: Denies: eye pain, blurred vision, tearing, double vision, ear pain, ear discharge, nose pain, nose congestion, throat pain, throat swelling, mouth pain , mouth swelling, Cardiovascular: Denies: chest pain, edema, lightheadedness, palpitations, syncope, Respiratory: Denies: cough, orthopnea, shortness of breath, SOB with excertion , SOB at rest, sputum, stridor, wheezing, other Gastrointestinal/Abdominal: Denies: abdomen distended, abdominal pain, black stools, tarry stools, blood in stool, constipated, diarrhea, difficulty swallowing, nausea, poor appetite, poor fluid intake, rectal bleeding, vomiting , other Genitourinary: Denies: burning, discharge, frequency, flank pain, hematuria, incontinence, pain, urgency, other Neurologic/Psychiatric: Denies: anxiety, depressed, emotional problems, headache, numbness, paresthesia, pre-existing deficit, seizure, tingling, tremors, weakness, other Endocrine: Denies: excessive sweating, flushing, intolerance to cold, intolerance to heat, increased hunger, increased thirst, increased urine, unexplained weight gain, unexplained weight loss, other MSK: denies joint pains, swelling, stiffness Hematologic/Lymphatic: Denies: anemia, easy bleeding, easy bruising, other Objective Height (Feet): 6 Height (Inches): 2.00 Weight (Pounds): 251 Objective General: WDWN male in NAD, A&O x 4 HEENT: Normocephalic cephalic atraumatic, pupils equal round reactive to light and accommodation, nares patent and no symmetrical, no tonsillar exudates, mucous membranes moist CV: Regular rate regular rhythm, no murmurs, rubs, or gallops Pulm: Lungs clear to auscultation bilaterally. No wheezes, rhonchi, or rales GI: Soft, nontender, nondistended, bowel sounds present Neuro: CN 2-12 intact bilaterally, no focal signs. Ext: No lower extremity edema bilaterally Skin: no rashes lesions or ulcers. Right plantar foot with healed callus. No pain on palpation no surrounding erythema or drainage. Right lower extremity with mild erythema on the distal medial tibia. No warmth on palpation. Msk: Joints symmetrical in upper extremity and lower extremity bilaterally, no joint swelling. Lymph: No lymphadenopathy in upper extremity and lower extremity Fish Ellis D.O. Jul 26, 2019 22:20
== END 2019-07-25 15:17 | disposition home or self-care (01) | DRG 720 ==
LOC: EMR 19:05 → EDBEDREQ 07-18 06:11 → 2E 07-18 06:35 → 4E 07-19 17:22
DX: A41.9 Sepsis, unspecified organism (principal); J18.9 Pneumonia, unspecified organism; N17.9 Acute kidney failure, unspecified; R65.20 Severe sepsis without septic shock; L03.115 Cellulitis of right lower limb; E11.51 Type 2 diabetes mellitus with diabetic peripheral angiopathy without gangrene; E11.65 Type 2 diabetes mellitus with hyperglycemia; I13.0 Hypertensive heart and chronic kidney disease with heart failure and stage 1 through stage 4 chronic kidney disease, or unspecified chronic kidney disease; I50.32 Chronic diastolic (congestive) heart failure; N18.9 Chronic kidney disease, unspecified; Z89.411 Acquired absence of right great toe; N40.0 Benign prostatic hyperplasia without lower urinary tract symptoms; Z79.84 Long term (current) use of oral hypoglycemic drugs
CPT/HCPCS: 36415; 71045; 80048; 80053; 80202; 81003; 82164; 82248; 82550; 82962; 83036; 83605; 83690; 83735; 83880; 84100; 84443; 84484; 85007; 85025; 85610; 85651; 85730; 86140; 86710; 86738; 87040; 87070; 87205; 93005; 93306; 96365; 96367; 99291; J1815; J7030; S5561

== ENCOUNTER 2019-08-03 12:51 | Emergency (ER) | payer MEDICAID ==
[~2019-08-03] VITALS: Ht 188 cm; Wt 104.3 kg
[~2019-08-03 12:51] MED LIST: ATORVASTATIN CA40 MG ORAL; AUGMENTIN 875-1 EAC1 ORAL; BACTRIM DS TAB1 EAC1 ORAL; CLONIDINE HCL0.1 MG ORAL; FLOMAX0.4 MG ORAL; GLIPIZIDE5 MG ORAL; LEVEMIR FL100 UNIT/1 SUBQ; LOSARTAN POTASS50 MG ORAL; METFORMIN HCL1000 M1 ORAL; NOVOLOG100 UNITS1 SUBQ
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
[2019-08-03] MEDS ORDERED: Augmentin 875mg Tab ORAL ONE (13:15)
[2019-08-03] MEDS ORDERED: Doxycycline Monohydrate 100mg ORAL ONE (13:15)
--- NOTE | 2019-08-03 13:17 | NUR ---
ED Nurse Note: Patient walked into ED from home c/o bilateral lower extremity swelling x 2 days. Patient was DC'd last week after being admitted for lower extremity cellulitis. Patient AxO x 4, no s/s of acute distress noted.
[2019-08-03 13:18] VITALS: BP 129/79
[2019-08-03] MEDS ORDERED: METFORMIN HCL1000 M1 ORAL (13:50)
[2019-08-03] MEDS ORDERED: AUGMENTIN 875-1 EAC1 ORAL (13:50)
[2019-08-03] MEDS ORDERED: DOXYCYCLINE MO100 MG ORAL (13:50)
[2019-08-03 14:05] VITALS: BP 125/81
--- NOTE | 2019-08-03 14:05 | NUR ---
ER DISCHARGE NOTE: Patient is cleared to be discharged per ERMD, pt is aox4, on room air, with stable vital signs. pt was given dc and prescription instructions, pt was able to verbalize understanding, pt id band and iv site removed without complications. pt is able to ambulate with steady gait. pt took all belongings.
== END 2019-08-03 14:05 | disposition home or self-care (01) ==
LOC: EMR 13:50
DX: L03.115 Cellulitis of right lower limb (principal); L97.411 Non-pressure chronic ulcer of right heel and midfoot limited to breakdown of skin; I10 Essential (primary) hypertension; E11.9 Type 2 diabetes mellitus without complications
CPT/HCPCS: 99282

== ENCOUNTER 2019-08-07 03:15 | Inpatient (IN) | payer MEDICAID ==
[~2019-08-07] VITALS: Ht 188 cm; Wt 110.3 kg
[~2019-08-07 03:15] MED LIST changes: +DOXYCYCLINE MO100 MG ORAL
[2019-08-07 03:45] VITALS: BP 148/94
--- NOTE | 2019-08-07 03:45 | NUR ---
ED Nurse Note: Pt ambulated to ED from home c/o /10 pain, swelling and redness as well as weeping from bilateral feet. Pt is diabetic and has an open weeping blister on bottom of L foot and a healing hole on bottom of R foot, not weeping. VSS, denies fever
--- NOTE | 2019-08-07 03:52 | Emergency Room Report ---
History of Present Illness General Chief Complaint: Skin Rash/Abscess Source: Patient Present Illness HPI This is a 54-year-old male who has history of controlled diabetes with a hemoglobin A1c of 9.9 on last admission. He was just admitted and discharged from here with right foot cellulitis. He was not taking his antibiotics was seen here few days ago. He is currently taking Augmentin and Bactrim. Also taking metformin. Not taking insulin. He presents with chief complaint of left foot pain and cellulitis. After leaving here, the next day he started getting blistering and pain and drainage to the left foot over the ball of the great toe on the left side. Said that he has drainage. Painful. No fever chills but no nausea no vomiting. Worse with walking. Better with rest. Pain is 8 out of 10. Patient is currently homeless. Allergies: Coded Allergies: No Known Allergies (Unverified , 07/17/19) Patient History Past Medical History: see triage record, old chart reviewed, DM Past Surgical History: other Pertinent Family History: none Social History: Denies: smoking Immunizations: other Reviewed Nursing Documentation: PMH: Agreed; PSxH: Agreed Nursing Documentation-PMH Past Medical History: No History, Except For Hx Cardiac Problems: No - cellulitis Hx Hypertension: Yes Hx Diabetes: Yes Hx Cancer: No Hx Gastrointestinal Problems: No Hx Neurological Problems: No Review of Systems Eye: Denies: eye pain, blurred vision ENT: Denies: ear pain, nose congestion, throat swelling Respiratory: Denies: cough, shortness of breath Cardiovascular: Denies: chest pain, palpitations Gastrointestinal: Denies: abdominal pain, diarrhea, nausea, vomiting Musculoskeletal: Reports: joint pain, muscle pain; Denies: back pain Skin: Denies: rash Neurological: Denies: headache, numbness Endocrine: Denies: increased thirst, increased urine Hematologic/Lymphatic: Denies: easy bruising All Other Systems: negative except mentioned in HPI Physical Exam Vital Signs Date Time Temp Pulse Resp B/P (MAP) Pulse Ox O2 Delivery O2 Flow Rate FiO2 08/07/19 03:19 97.9 115 16 148/94 (112) 98 Room Air Vitals unremarkable except for tachycardia Sp02 EP Interpretation: reviewed, normal General Appearance: well appearing, no apparent distress, alert Head: normocephalic, atraumatic Eyes: bilateral eye PERRL, bilateral eye EOMI ENT: hearing grossly normal, normal pharynx Neck: full range of motion, supple, no meningismus Respiratory: chest non-tender, lungs clear, normal breath sounds Cardiovascular #1: regular rate, rhythm, no murmur Gastrointestinal: normal bowel sounds, non tender, no mass, no organomegaly, no bruit, non-distended Musculoskeletal: back normal, normal range of motion, gait/station normal, other - Left foot: He has tenderness to the dorsum of the foot. Decreased pulses. On the sole/ball of the great toe, there is ulceration of 3 to 4 cm with surrounding erythema. Tender to palpation. Psychiatric: mood/affect normal Medical Decision Making Diagnostic Impression: Primary Impression: Cellulitis of left foot Additional Impressions: Diabetic foot ulcer Qualified Codes: E11.621 - Type 2 diabetes mellitus with foot ulcer; L97.521 - Non-pressure chronic ulcer of other part of left foot limited to breakdown of skin Poorly controlled diabetes mellitus Cocaine abuse ER Course Patient with cellulitis of his left foot. He was just discharged for infection of the right foot. He still on antibiotics. Glucose poorly controlled. He is not taking insulin as he supposed to. He is only on metformin which is not good enough for him. He will need to be admitted for IV antibiotics because he is at high risk for complication secondary to noncompliance with medication and cocaine abuse causing vasoconstriction. Since the patient is a bounce back within 30 days, will readmit to Dr. Gisella wallace. Last Vital Signs Date Time Temp Pulse Resp B/P (MAP) Pulse Ox O2 Delivery O2 Flow Rate FiO2 08/07/19 03:19 97.9 115 16 148/94 (112) 98 Room Air Status: improved Disposition: ADMITTED INPATIENT Condition: Serious Referrals: NOT CHOSEN IPA/,REFERRING (PCP) Michael Maher MD Aug 07, 2019 03:52
[2019-08-07] MEDS ORDERED: Piperacillin/Tazobactam 3.375 GM in NS 110 ML IVPB ONE (04:00)
[2019-08-07] MEDS ORDERED: Vancomycin 1.5 GM in NS 275 ML IVPB ONE (04:00)
[2019-08-07 04:57] LABS: APPEARANCE,URINE CLEAR; BILIRUBIN, URINE NEGATIVE (NEGATIVE); COLOR,URINE PALE YELLOW; GLUCOSE, URINE (UA) 4+ (NEGATIVE); KETONES,URINE NEGATIVE (NEGATIVE); LEUKOCYTE ESTERASE ,URINE NEGATIVE (NEGATIVE); NITRITE,URINE NEGATIVE (NEGATIVE); PH,URINE 5 (4.5-8.0); PROTEIN,URINE 3+ (NEGATIVE); UROBILINOGEN,URINE NORMAL MG/DL (0.0-1.0)
[2019-08-07 05:06] LABS: EOSINOPHILS % (AUTO) 2.9 % (0.0-3.0); HEMATOCRIT 36.1 % (42.0-52.0); HEMOGLOBIN 12.7 G/DL (14.2-18.0); MEAN CORPUSCULAR VOLUME 82 FL (80-99); MONOCYTES % (AUTO) 8.4 % (1.0-10.0); NEUTROPHILS % (AUTO) 78.7 % (45.0-75.0); PLATELET COUNT 334 K/UL (150-450); RED BLOOD COUNT 4.39 M/UL (4.70-6.10); RED CELL DISTRIBUTION WIDTH 12.3 % (11.6-14.8); WHITE BLOOD COUNT 9.7 K/UL (4.8-10.8)
[2019-08-07 05:10] LABS: ANION GAP 12 mmol/L (5-15); BLOOD UREA NITROGEN 15 mg/dL (7-18); CALCIUM 8.9 MG/DL (8.5-10.1); CARBON DIOXIDE 24 MMOL/L (21-32); CHLORIDE 98 MMOL/L (98-107); CREATININE 1.2 MG/DL (0.55-1.30); POTASSIUM 4.9 MMOL/L (3.5-5.1); SODIUM 134 MMOL/L (136-145)
--- NOTE | 2019-08-07 06:10 | NUR ---
NURSE NOTES: Receive a report from LÓPEZ York RN.
--- NOTE | 2019-08-07 06:15 | NUR ---
ED Nurse Note: pT REFUSED VRE SPECIMEN SWAB, MRSA SWAB SENT TO LAB
--- NOTE | 2019-08-07 06:20 | NUR ---
TRANSFER TO FLOOR: Patient transferred to as ordered, per Dr Amador. Report given to AJ Blancas. Belongings and medications given to . Family and or S/O informed of transfer.
--- NOTE | 2019-08-07 06:30 | NUR ---
NURSE NOTES: Pt admitted from ED via gurney. Pt is snoring without acute distress but aroused by shaking and calling his name. Move to hospital bed. Will continue to process admission. Bed is locked and lowest with call light next him.
[2019-08-07 06:37] VITALS: BP 126/68
--- NOTE | 2019-08-07 06:45 | NUR ---
NURSE NOTES: Given unit orientation. Body assessment is done. Done checking belongings. Changed from regular clothing to hospital gown. Wash out both feet and done dressing on both of them. Noted swelling and redness on right foot with hole on bottom of foot. Noted open blister healing without discharge. IV ATB is running via right hand 18 G. Will continue to monitor.
--- NOTE | 2019-08-07 07:10 | NUR ---
NURSE NOTES: Call to Dr. Obando's office for pt's admission. Waiting for call back for admission orders. Will continue to follow up.
[2019-08-07] MEDS ORDERED: Milk of Magnesia 30ml Ud ORAL PRN (07:45)
[2019-08-07] MEDS ORDERED: Albuterol/Ipratropium 3ml neb HHN PRN (07:45)
[2019-08-07] MEDS ORDERED: DiphenhydrAMINE 25mg Tab ORAL PRN (07:45)
--- NOTE | 2019-08-07 07:50 | NUR ---
HAND-OFF: Report given to AJ Blancas. Round is done.
[2019-08-07 08:00] VITALS: BP 126/83
--- NOTE | 2019-08-07 08:20 | NUR ---
NURSE NOTES: Patient is in bed asleep. Stable. Breathing is even and unlabored. Patient is arousable to verbal stimuli. Patient is in bed in locked and lowest position. All safety measures provided. Will continue to monitor.
[2019-08-07] MEDS: Docusate 100mg cap ORAL SCH ×2 (08:37→21:20)
[2019-08-07] MEDS: Enoxaparin 40mg Inj SUBQ SCH (08:38)
--- NOTE | 2019-08-07 09:15 | NUR ---
NURSE NOTES: RN attempted to do admission profile. Patient keeps falling asleep. Patient does not appear to be in any distress at this time but is very sleepy.
--- NOTE | 2019-08-07 11:48 | Infectious Diseases Prog Note ---
Assessment/Plan Assessment/Plan Full consult to follow: A) 1) left foot cellulitis, ? wound infection, ? osteo 2) hx right leg cellulitis - ? mild cellulitis remaining, s/p abx 3) pmh noted 4) allergies - nkda P) 1) vancomycin and zosyn 2) check x-ray, wound culture, labs 3) may need MRI 4) consider podiatry evaluation 5) thank you Subjective Allergies: Coded Allergies: No Known Allergies (Unverified , 07/17/19) Objective Vital Signs Last 24 Hour Vital Signs Date Time Temp Pulse Resp B/P (MAP) Pulse Ox O2 Delivery O2 Flow Rate FiO2 08/07/19 09:00 Room Air 08/07/19 08:00 Room Air 08/07/19 08:00 97.9 106 20 126/83 (97) 98 08/07/19 06:37 97.5 96 18 126/68 (87) 96 08/07/19 06:20 97.9 88 16 148/94 98 Room Air 08/07/19 03:45 97.9 88 16 148/94 98 Room Air 08/07/19 03:19 97.9 115 16 148/94 (112) 98 Room Air Height (Feet): 6 Height (Inches): 2.00 Weight (Pounds): 230 Laboratory Tests Test 08/07/19 04:00 White Blood Count 9.7 K/UL (4.8-10.8) Red Blood Count 4.39 M/UL (4.70-6.10) L Hemoglobin 12.7 G/DL (14.2-18.0) L Hematocrit 36.1 % (42.0-52.0) L Mean Corpuscular Volume 82 FL (80-99) Mean Corpuscular Hemoglobin 29.0 PG (27.0-31.0) Mean Corpuscular Hemoglobin Concent 35.3 G/DL (32.0-36.0) Red Cell Distribution Width 12.3 % (11.6-14.8) Platelet Count 334 K/UL (150-450) Mean Platelet Volume 6.0 FL (6.5-10.1) L Neutrophils (%) (Auto) 78.7 % (45.0-75.0) H Lymphocytes (%) (Auto) 9.0 % (20.0-45.0) L Monocytes (%) (Auto) 8.4 % (1.0-10.0) Eosinophils (%) (Auto) 2.9 % (0.0-3.0) Basophils (%) (Auto) 1.0 % (0.0-2.0) Erythrocyte Sedimentation Rate 74 MM/HR (0-20) H Urine Color Pale yellow Urine Appearance Clear Urine pH 5 (4.5-8.0) Urine Specific Slaughters 1.020 (1.005-1.035) Urine Protein 3+ (NEGATIVE) H Urine Glucose (UA) 4+ (NEGATIVE) H Urine Ketones Negative (NEGATIVE) Urine Blood Negative (NEGATIVE) Urine Nitrite Negative (NEGATIVE) Urine Bilirubin Negative (NEGATIVE) Urine Urobilinogen Normal MG/DL (0.0-1.0) Urine Leukocyte Esterase Negative (NEGATIVE) Urine RBC 0-2 /HPF (0 - 0) H Urine WBC 0 /HPF (0 - 0) Urine Squamous Epithelial Cells None /LPF (NONE/OCC) Urine Bacteria None /HPF (NONE) Sodium Level 134 MMOL/L (136-145) L Potassium Level 4.9 MMOL/L (3.5-5.1) Chloride Level 98 MMOL/L (98-107) Carbon Dioxide Level 24 MMOL/L (21-32) Anion Gap 12 mmol/L (5-15) Blood Urea Nitrogen 15 mg/dL (7-18) Creatinine 1.2 MG/DL (0.55-1.30) Estimat Glomerular Filtration Rate > 60 mL/min (>60) Glucose Level 335 MG/DL (74-106) H Calcium Level 8.9 MG/DL (8.5-10.1) C-Reactive Protein, Quantitative 2.8 mg/dL (0.00-0.90) H Urine Opiates Screen Negative (NEGATIVE) Urine Barbiturates Screen Negative (NEGATIVE) Phencyclidine (PCP) Screen Negative (NEGATIVE) Urine Amphetamines Screen Negative (NEGATIVE) Urine Benzodiazepines Screen Negative (NEGATIVE) Urine Cocaine Screen Positive (NEGATIVE) H Urine Marijuana (THC) Screen Negative (NEGATIVE) Current Medications Medications (Trade) Dose Ordered Sig/Gaurav Route PRN Reason Start Time Stop Time Status Last Admin Dose Admin Acetaminophen (Tylenol) 650 mg Q4H PRN ORAL Mild Pain (Pain Scale 1-3) 08/07/19 07:45 09/06/19 07:44 Acetaminophen (Tylenol) 650 mg Q4H PRN ORAL fever 08/07/19 07:45 09/06/19 07:44 Albuterol/ Ipratropium (Albuterol/ Ipratropium) 3 ml QID PRN HHN Shortness of Breath 08/07/19 07:45 08/12/19 07:44 Dextrose (Dextrose 50%) 25 ml Q30M PRN IV Hypoglycemia 08/07/19 08:00 09/06/19 07:59 Dextrose (Dextrose 50%) 50 ml Q30M PRN IV Hypoglycemia 08/07/19 08:00 09/06/19 07:59 Diphenhydramine HCl (Benadryl) 25 mg Q6H PRN ORAL Itching/Pruritis 08/07/19 07:45 09/06/19 07:44 Docusate Sodium (Colace) 100 mg EVERY 12 HOURS ORAL 08/07/19 09:00 09/06/19 08:59 08/07/19 08:37 Enoxaparin Sodium (Lovenox) 40 mg Q24H SUBQ 08/07/19 09:00 09/06/19 08:59 08/07/19 08:38 Famotidine (Pepcid) 40 mg DAILY ORAL 08/07/19 09:00 09/06/19 08:59 08/07/19 08:37 Hydromorphone HCl (Dilaudid) 2 mg Q4H PRN IVP Severe Pain (Pain Scale 7-10) 08/07/19 07:45 08/14/19 07:44 Insulin Aspart (NovoLOG) BEFORE MEALS AND HS SUBQ 08/07/19 11:30 09/06/19 11:29 Magnesium Hydroxide (Mom) 30 ml HSPRN PRN ORAL Constipation 08/07/19 07:45 09/06/19 07:44 Ondansetron HCl (Zofran) 4 mg Q6H PRN IVP Nausea & Vomiting 08/07/19 07:45 09/06/19 07:44 Piperacillin Sod/ Tazobactam Sod 3.375 gm/Sodium Chloride 110 ml @ 27.5 mls/hr Q8H IVPB 08/07/19 12:00 08/14/19 11:59 Vancomycin HCl (Vanco rx to dose) 1 ea DAILY PRN MISC Per rx protocol 08/07/19 08:00 09/06/19 07:59 Vancomycin HCl 1 gm/Sodium Chloride 275 ml @ 183.708 mls/hr Q12H IVPB 08/07/19 16:00 08/12/19 15:59 Shannan Gr MD Aug 07, 2019 11:48
--- NOTE | 2019-08-07 11:50 | NUR ---
Social Work This Sw received a consult due to patient is homeless, substance abuse. This SW met with patient who was unable to stay awake to speak with this SW. Patient did explain he has been homeless, while denying any substance abuse. This SW confronted patient regarding positive for Cocaine and educated the risks involved with substance abuse. Homeless and substance abuse resources provided to patient at bedside. SW to follow further, as needed, when patient is more alert.
--- NOTE | 2019-08-07 11:56 | Consultation ---
History of Present Illness General Date patient seen: Aug 07, 2019 Reason for Hospitalization: Skin Rash/Abscess Present Illness HPI 54-year-old male who has history of uncontrolled diabetes with a recent hemoglobin A1c of 9.9 on last admission who was recently [place] [facility] [place]. He was not taking his antibiotics and came in a few days ago, given abx and d/c safely. He is currently taking Augmentin and Bactrim. Also taking metformin. Not taking insulin. He presents with chief complaint of left foot pain and cellulitis. states his right foot is improving but now left foot with pain and cellulitis. After leaving here, the next day he started getting blistering and pain and drainage to the left foot over the ball of the great toe on the left side. Said that he has drainage. Painful. No fever chills but no nausea no vomiting. Worse with walking. Better with rest. Pain is 8 out of 10. Patient is currently homeless. admitted for care and management. surgery called to evaluate. patient seen, chart reviewed, patient examined. states he has been walking a lot. states wears shoes and socks. unsure how blister formed. Allergies: Coded Allergies: No Known Allergies (Unverified , 07/17/19) Medication History Scheduled Amoxicillin/Potassium Clav 875-125* (Augmentin 875-125 Tablet*), 1 TAB ORAL TWICE A DAY Amoxicillin/Potassium Clav 875-125* (Augmentin 875-125 Tablet*), 1 TAB ORAL TWICE A DAY Atorvastatin Calcium* (Atorvastatin Calcium*), 40 MG ORAL BEDTIME, (Reported) Doxycycline Monohydrate* (Doxycycline Monohydrate*), 100 MG ORAL Q12H Insulin Aspart (Novolog Flexpen), 5 UNITS SUBQ NOVOTIAC Insulin Detemir (Levemir Flexpen), 8 UNITS SUBQ Q24H Losartan Potassium* (Losartan Potassium*), 100 MG ORAL DAILY, (Reported) Metformin Hcl* (Metformin Hcl*), 1,000 MG ORAL BIDAC Metformin Hcl* (Metformin Hcl*), 1,000 MG ORAL BID Tamsulosin HCl (Flomax), 0.4 MG ORAL DAILY, (Reported) Trimethoprim/Sulfamethoxazole 160/800* (Bactrim Ds Tablet*), 1 TAB ORAL Q12H Scheduled PRN Clonidine Hcl (Clonidine Hcl), 0.1 MG ORAL Q4H PRN Patient History History Provided By: Patient, Medical Record Healthcare decision maker Resuscitation status Advanced Directive on File Past Medical/Surgical History Past Medical/Surgical History: (1) Severe sepsis (2) ALFONSO (acute kidney injury) (3) Uncontrolled type 2 DM with peripheral circulatory disorder (4) HTN (hypertension) (5) Diastolic CHF (6) Diabetic ulcer of right foot (7) Cellulitis of left foot (8) Cocaine abuse (9) Diabetic foot ulcer (10) Poorly controlled diabetes mellitus (11) Cellulitis of right lower extremity Review of Systems Review of Symptoms General ROS: no weight loss or fever Psychological ROS: no depression or mood changes, no memory loss Ophthalmic ROS: no visual changes or eye irritation ENT ROS: no nasal congestion, hearing loss, dizziness Allergy and Immunology ROS: no allergic symptoms or urticaria Hematological and Lymphatic ROS: no swollen glands, unusual bleeding or bruising Endocrine ROS: no polyuria, polydipsia, weight changes, temperature intolerance Respiratory ROS: no cough, shortness of breath, or wheezing Cardiovascular ROS: no chest pain or dyspnea on exertion Gastrointestinal ROS: denies abdominal pain, bright red blood in stool. Musculoskeletal ROS: no myalgias or arthralgias Neurological ROS: no TIA or stroke symptoms Dermatological ROS: no new or changing skin lesions, rashes or pruritis Physical Exam Physical Exam General appearance: alert, cooperative, no distress, appears stated age Head: Normocephalic, without obvious abnormality, atraumatic Eyes: conjunctivae/corneas clear. PERRL, EOM's intact. Fundi benign Throat: Lips, mucosa, and tongue normal. Teeth and gums normal Neck: supple, symmetrical, trachea midline, no adenopathy, thyroid: not enlarged, symmetric, no tenderness/mass/nodules, no carotid bruit and no JVD Lungs: clear to auscultation bilaterally Heart: regular rate and rhythm, S1, S2 normal, no murmur, click, rub or gallop Abdomen: soft, non-tender. Bowel sounds normal. No masses, no organomegaly Extremities: extremities left foot plantar great toe 3cm x 3cm open blister, tender, no dermal breakdown. serous drainage no abscess or pus noted. mild erythema. minimal cellulitis. right leg edema improved. Pulses: 2+ and symmetric Skin: Skin color, texture, turgor normal. No rashes or lesions Neurologic: Grossly normal Last 24 Hour Vital Signs Date Time Temp Pulse Resp B/P (MAP) Pulse Ox O2 Delivery O2 Flow Rate FiO2 08/07/19 09:00 Room Air 08/07/19 08:00 Room Air 08/07/19 08:00 97.9 106 20 126/83 (97) 98 08/07/19 06:37 97.5 96 18 126/68 (87) 96 08/07/19 06:20 97.9 88 16 148/94 98 Room Air 08/07/19 03:45 97.9 88 16 148/94 98 Room Air 08/07/19 03:19 97.9 115 16 148/94 (112) 98 Room Air Laboratory Tests Test 08/07/19 04:00 White Blood Count 9.7 K/UL (4.8-10.8) Red Blood Count 4.39 M/UL (4.70-6.10) L Hemoglobin 12.7 G/DL (14.2-18.0) L Hematocrit 36.1 % (42.0-52.0) L Mean Corpuscular Volume 82 FL (80-99) Mean Corpuscular Hemoglobin 29.0 PG (27.0-31.0) Mean Corpuscular Hemoglobin Concent 35.3 G/DL (32.0-36.0) Red Cell Distribution Width 12.3 % (11.6-14.8) Platelet Count 334 K/UL (150-450) Mean Platelet Volume 6.0 FL (6.5-10.1) L Neutrophils (%) (Auto) 78.7 % (45.0-75.0) H Lymphocytes (%) (Auto) 9.0 % (20.0-45.0) L Monocytes (%) (Auto) 8.4 % (1.0-10.0) Eosinophils (%) (Auto) 2.9 % (0.0-3.0) Basophils (%) (Auto) 1.0 % (0.0-2.0) Erythrocyte Sedimentation Rate 74 MM/HR (0-20) H Urine Color Pale yellow Urine Appearance Clear Urine pH 5 (4.5-8.0) Urine Specific [place] 1.020 (1.005-1.035) Urine Protein 3+ (NEGATIVE) H Urine Glucose (UA) 4+ (NEGATIVE) H Urine Ketones Negative (NEGATIVE) Urine Blood Negative (NEGATIVE) Urine Nitrite Negative (NEGATIVE) Urine Bilirubin Negative (NEGATIVE) Urine Urobilinogen Normal MG/DL (0.0-1.0) Urine Leukocyte Esterase Negative (NEGATIVE) Urine RBC 0-2 /HPF (0 - 0) H Urine WBC 0 /HPF (0 - 0) Urine Squamous Epithelial Cells None /LPF (NONE/OCC) Urine Bacteria None /HPF (NONE) Sodium Level 134 MMOL/L (136-145) L Potassium Level 4.9 MMOL/L (3.5-5.1) Chloride Level 98 MMOL/L (98-107) Carbon Dioxide Level 24 MMOL/L (21-32) Anion Gap 12 mmol/L (5-15) Blood Urea Nitrogen 15 mg/dL (7-18) Creatinine 1.2 MG/DL (0.55-1.30) Estimat Glomerular Filtration Rate > 60 mL/min (>60) Glucose Level 335 MG/DL (74-106) H Calcium Level 8.9 MG/DL (8.5-10.1) C-Reactive Protein, Quantitative 2.8 mg/dL (0.00-0.90) H Urine Opiates Screen Negative (NEGATIVE) Urine Barbiturates Screen Negative (NEGATIVE) Phencyclidine (PCP) Screen Negative (NEGATIVE) Urine Amphetamines Screen Negative (NEGATIVE) Urine Benzodiazepines Screen Negative (NEGATIVE) Urine Cocaine Screen Positive (NEGATIVE) H Urine Marijuana (THC) Screen Negative (NEGATIVE) Height (Feet): 6 Height (Inches): 2.00 Weight (Pounds): 230 Medications Current Medications Medications (Trade) Dose Ordered Sig/Gaurav Route PRN Reason Start Time Stop Time Status Last Admin Dose Admin Acetaminophen (Tylenol) 650 mg Q4H PRN ORAL Mild Pain (Pain Scale 1-3) 08/07/19 07:45 09/06/19 07:44 Acetaminophen (Tylenol) 650 mg Q4H PRN ORAL fever 08/07/19 07:45 09/06/19 07:44 Albuterol/ Ipratropium (Albuterol/ Ipratropium) 3 ml QID PRN HHN Shortness of Breath 08/07/19 07:45 08/12/19 07:44 Dextrose (Dextrose 50%) 25 ml Q30M PRN IV Hypoglycemia 08/07/19 08:00 09/06/19 07:59 Dextrose (Dextrose 50%) 50 ml Q30M PRN IV Hypoglycemia 08/07/19 08:00 09/06/19 07:59 Diphenhydramine HCl (Benadryl) 25 mg Q6H PRN ORAL Itching/Pruritis 08/07/19 07:45 09/06/19 07:44 Docusate Sodium (Colace) 100 mg EVERY 12 HOURS ORAL 08/07/19 09:00 09/06/19 08:59 08/07/19 08:37 Enoxaparin Sodium (Lovenox) 40 mg Q24H SUBQ 08/07/19 09:00 09/06/19 08:59 08/07/19 08:38 Famotidine (Pepcid) 40 mg DAILY ORAL 08/07/19 09:00 09/06/19 08:59 08/07/19 08:37 Hydromorphone HCl (Dilaudid) 2 mg Q4H PRN IVP Severe Pain (Pain Scale 7-10) 08/07/19 07:45 08/14/19 07:44 Insulin Aspart (NovoLOG) BEFORE MEALS AND HS SUBQ 08/07/19 11:30 09/06/19 11:29 Magnesium Hydroxide (Mom) 30 ml HSPRN PRN ORAL Constipation 08/07/19 07:45 09/06/19 07:44 Ondansetron HCl (Zofran) 4 mg Q6H PRN IVP Nausea & Vomiting 08/07/19 07:45 09/06/19 07:44 Piperacillin Sod/ Tazobactam Sod 3.375 gm/Sodium Chloride 110 ml @ 27.5 mls/hr Q8H IVPB 08/07/19 12:00 08/14/19 11:59 Vancomycin HCl (Vanco rx to dose) 1 ea DAILY PRN MISC Per rx protocol 08/07/19 08:00 09/06/19 07:59 Vancomycin HCl 1 gm/Sodium Chloride 275 ml @ 183.708 mls/hr Q12H IVPB 08/07/19 16:00 08/12/19 15:59 Assessment/Plan Problem List: (1) Cellulitis of left foot Assessment & Plan: 54-year-old male with history of right lower extremity cellulitis which was treated and patient discharged safely was not fully compliant with his medication regimen and presented now with left lower extremity cellulitis. States right lower extremity cellulitis improving but has been walking a lot and developed a blister that is now open draining in his left foot. Admitted for further care and management. Labs noted, exam performed, care plan initiated. Patient states he is now walking around but does keep his feet protected. He is noncompliant and uncontrolled diabetic glucose 300s on admission. Right lower extremity cellulitis has improved significantly since last admission. On the left lower extremity plantar aspect distal metatarsal 3 cm 3 cm open blister tender uncomfortable serous drainage no purulent drainage no underlying abscess identified. Plain films ordered Okay for diet Wash wound on left lower extremity plantar aspect daily with normal saline apply Xeroform followed by gauze dressing. Okay for socks. Okay to ambulate. Will monitor while inpatient. ID input appreciated Thank you for let me participate in patient's care. We will follow with recommendations. ICD Codes: L03.116 - Cellulitis of left lower limb; L97.509 - Non-pressure chronic ulcer of other part of unspecified foot with unspecified severity SNOMED: 128320964, [id number] Jasvir Mclaughlin Aug 07, 2019 11:56
[2019-08-07 12:00] VITALS: BP 113/74
[2019-08-07] MEDS: Piperacillin/Tazobactam 3.375 GM in NS 110 ML IVPB SCH ×2 (12:05→21:05)
[2019-08-07] MEDS: NovoLOG Insulin Flexpen SUBQ SCH ×3 (12:05→21:17)
--- NOTE | 2019-08-07 12:33 | Diagnostic Imaging Report ---
Indication: Foot pain Comparison: None Findings: 3 views of the left foot were obtained. No acute fractures, malalignment, erosions or periostitis are identified. Mild soft tissue swelling is present. There is a plantar calcaneal spur. Impression: No acute fracture. Mild soft tissue swelling
--- NOTE | 2019-08-07 13:38 | History and Physical ---
History of Present Illness General Date patient seen: Aug 07, 2019 Time patient seen: 11:20 Reason for Hospitalization: cellulitis Present Illness HPI Mr. Page is a 54 year old male with DM2, HLD, BPH, recent hospitalization for right foot cellulitis/wound, presenting with left foot ulcer, pain. Since prior discharge, he was taking some of his medications, including abx, (but not all) due to him not having money to buy meds. His right foot wound has been improving, but for last several days, he noticed a new wound on the bottom of left foot, with purulence, discharge, warmth and pain. Also reports chills, but no fevers. no SOB, abd pain, chest pain. Allergies: Coded Allergies: No Known Allergies (Unverified , 07/17/19) Medication History Scheduled Amoxicillin/Potassium Clav 875-125* (Augmentin 875-125 Tablet*), 1 TAB ORAL TWICE A DAY Amoxicillin/Potassium Clav 875-125* (Augmentin 875-125 Tablet*), 1 TAB ORAL TWICE A DAY Atorvastatin Calcium* (Atorvastatin Calcium*), 40 MG ORAL BEDTIME, (Reported) Doxycycline Monohydrate* (Doxycycline Monohydrate*), 100 MG ORAL Q12H Insulin Aspart (Novolog Flexpen), 5 UNITS SUBQ NOVOTIAC Insulin Detemir (Levemir Flexpen), 8 UNITS SUBQ Q24H Losartan Potassium* (Losartan Potassium*), 100 MG ORAL DAILY, (Reported) Metformin Hcl* (Metformin Hcl*), 1,000 MG ORAL BIDAC Metformin Hcl* (Metformin Hcl*), 1,000 MG ORAL BID Tamsulosin HCl (Flomax), 0.4 MG ORAL DAILY, (Reported) Trimethoprim/Sulfamethoxazole 160/800* (Bactrim Ds Tablet*), 1 TAB ORAL Q12H Scheduled PRN Clonidine Hcl (Clonidine Hcl), 0.1 MG ORAL Q4H PRN Patient History History Provided By: Patient, Medical Record Healthcare decision maker Resuscitation status full Advanced Directive on File Review of Systems Constitutional: Reports: chills; Denies: no symptoms, see HPI, sweats, fever, malaise, weakness, other Eye: Denies: no symptoms, see HPI, eye pain, blurred vision, tearing, double vision, nose pain, nose congestion, acuity changes, discharge, other ENT: Denies: no symptoms, see HPI, ear pain, ear discharge, nose pain, nose congestion, throat pain, throat swelling, mouth pain, hearing loss, nasal discharge, other Respiratory: Denies: no symptoms, see HPI, cough, orthopnea, shortness of breath, stridor, wheezing, CON[place], sputum, other Cardiovascular: Denies: no symptoms, see HPI, chest pain, edema, palpitations, syncope, PND, other Gastrointestinal: Denies: no symptoms, see HPI, abdominal pain, constipation, diarrhea, nausea, vomiting, melena, hematemesis, other Genitourinary: Denies: no symptoms, see HPI, discharge, dysuria, frequency, hematuria, pain, retention, incontinence, urgency, vag bleed/dc, other Musculoskeletal: Reports: no symptoms, see HPI, back pain, gout, joint pain, joint swelling, muscle pain, muscle stiffness, other - left foot ulcer Skin: Denies: no symptoms, see HPI, rash, change in color, change in hair/nails , dryness, lesions, other Psychiatric: Denies: no symptoms, see HPI, prior hx, anxiety, depressed feelings, emotional problems, SI, HI, hallucinations, other Neurological: Denies: no symptoms, see HPI, headache, numbness, paresthesia, seizure, tingling, tremors, focal weakness, syncope, dizziness, other Endocrine: Denies: no symptoms, see HPI, excessive sweating, flushing, intolerance to temperature, increased thirst, increased urine, unexplained weight loss, other Hematologic/Lymphatic: Denies: no symptoms, see HPI, anemia, blood clots, easy bleeding, easy bruising, swollen glands, diathesis, other All Other Systems: negative except mentioned in HPI Physical Exam General Appearance: WD/WN, no apparent distress, alert HEENT: normocephalic, atraumatic Neck: supple Respiratory/Chest: lungs clear, normal breath sounds, no respiratory distress Cardiovascular/Chest: normal rate, regular rhythm Abdomen: non tender, soft Extremities: normal range of motion, other - open, shallow ulcer on bottom of left foot. on bottom of right foot, healing ulcer. Neurologic: oriented x 3 Musculoskeletal: normal muscle bulk Last 24 Hour Vital Signs Date Time Temp Pulse Resp B/P (MAP) Pulse Ox O2 Delivery O2 Flow Rate FiO2 08/07/19 09:00 Room Air 08/07/19 08:00 Room Air 08/07/19 08:00 97.9 106 20 126/83 (97) 98 08/07/19 06:37 97.5 96 18 126/68 (87) 96 08/07/19 06:20 97.9 88 16 148/94 98 Room Air 08/07/19 03:45 97.9 88 16 148/94 98 Room Air 08/07/19 03:19 97.9 115 16 148/94 (112) 98 Room Air Laboratory Tests Test 08/07/19 04:00 White Blood Count 9.7 K/UL (4.8-10.8) Red Blood Count 4.39 M/UL (4.70-6.10) L Hemoglobin 12.7 G/DL (14.2-18.0) L Hematocrit 36.1 % (42.0-52.0) L Mean Corpuscular Volume 82 FL (80-99) Mean Corpuscular Hemoglobin 29.0 PG (27.0-31.0) Mean Corpuscular Hemoglobin Concent 35.3 G/DL (32.0-36.0) Red Cell Distribution Width 12.3 % (11.6-14.8) Platelet Count 334 K/UL (150-450) Mean Platelet Volume 6.0 FL (6.5-10.1) L Neutrophils (%) (Auto) 78.7 % (45.0-75.0) H Lymphocytes (%) (Auto) 9.0 % (20.0-45.0) L Monocytes (%) (Auto) 8.4 % (1.0-10.0) Eosinophils (%) (Auto) 2.9 % (0.0-3.0) Basophils (%) (Auto) 1.0 % (0.0-2.0) Erythrocyte Sedimentation Rate 74 MM/HR (0-20) H Urine Color Pale yellow Urine Appearance Clear Urine pH 5 (4.5-8.0) Urine Specific [place] 1.020 (1.005-1.035) Urine Protein 3+ (NEGATIVE) H Urine Glucose (UA) 4+ (NEGATIVE) H Urine Ketones Negative (NEGATIVE) Urine Blood Negative (NEGATIVE) Urine Nitrite Negative (NEGATIVE) Urine Bilirubin Negative (NEGATIVE) Urine Urobilinogen Normal MG/DL (0.0-1.0) Urine Leukocyte Esterase Negative (NEGATIVE) Urine RBC 0-2 /HPF (0 - 0) H Urine WBC 0 /HPF (0 - 0) Urine Squamous Epithelial Cells None /LPF (NONE/OCC) Urine Bacteria None /HPF (NONE) Sodium Level 134 MMOL/L (136-145) L Potassium Level 4.9 MMOL/L (3.5-5.1) Chloride Level 98 MMOL/L (98-107) Carbon Dioxide Level 24 MMOL/L (21-32) Anion Gap 12 mmol/L (5-15) Blood Urea Nitrogen 15 mg/dL (7-18) Creatinine 1.2 MG/DL (0.55-1.30) Estimat Glomerular Filtration Rate > 60 mL/min (>60) Glucose Level 335 MG/DL (74-106) H Calcium Level 8.9 MG/DL (8.5-10.1) C-Reactive Protein, Quantitative 2.8 mg/dL (0.00-0.90) H Urine Opiates Screen Negative (NEGATIVE) Urine Barbiturates Screen Negative (NEGATIVE) Phencyclidine (PCP) Screen Negative (NEGATIVE) Urine Amphetamines Screen Negative (NEGATIVE) Urine Benzodiazepines Screen Negative (NEGATIVE) Urine Cocaine Screen Positive (NEGATIVE) H Urine Marijuana (THC) Screen Negative (NEGATIVE) Height (Feet): 6 Height (Inches): 2.00 Weight (Pounds): 230 Medications Current Medications Medications (Trade) Dose Ordered Sig/Gaurav Route PRN Reason Start Time Stop Time Status Last Admin Dose Admin Acetaminophen (Tylenol) 650 mg Q4H PRN ORAL Mild Pain (Pain Scale 1-3) 08/07/19 07:45 09/06/19 07:44 Acetaminophen (Tylenol) 650 mg Q4H PRN ORAL fever 08/07/19 07:45 09/06/19 07:44 Albuterol/ Ipratropium (Albuterol/ Ipratropium) 3 ml QID PRN HHN Shortness of Breath 08/07/19 07:45 08/12/19 07:44 Dextrose (Dextrose 50%) 25 ml Q30M PRN IV Hypoglycemia 08/07/19 08:00 09/06/19 07:59 Dextrose (Dextrose 50%) 50 ml Q30M PRN IV Hypoglycemia 08/07/19 08:00 09/06/19 07:59 Diphenhydramine HCl (Benadryl) 25 mg Q6H PRN ORAL Itching/Pruritis 08/07/19 07:45 09/06/19 07:44 Docusate Sodium (Colace) 100 mg EVERY 12 HOURS ORAL 08/07/19 09:00 09/06/19 08:59 08/07/19 08:37 Enoxaparin Sodium (Lovenox) 40 mg Q24H SUBQ 08/07/19 09:00 09/06/19 08:59 08/07/19 08:38 Famotidine (Pepcid) 40 mg DAILY ORAL 08/07/19 09:00 09/06/19 08:59 08/07/19 08:37 Hydromorphone HCl (Dilaudid) 2 mg Q4H PRN IVP Severe Pain (Pain Scale 7-10) 08/07/19 07:45 08/14/19 07:44 Insulin Aspart (NovoLOG) BEFORE MEALS AND HS SUBQ 08/07/19 11:30 09/06/19 11:29 08/07/19 12:05 Magnesium Hydroxide (Mom) 30 ml HSPRN PRN ORAL Constipation 08/07/19 07:45 09/06/19 07:44 Ondansetron HCl (Zofran) 4 mg Q6H PRN IVP Nausea & Vomiting 08/07/19 07:45 09/06/19 07:44 Piperacillin Sod/ Tazobactam Sod 3.375 gm/Sodium Chloride 110 ml @ 27.5 mls/hr Q8H IVPB 08/07/19 12:00 08/14/19 11:59 08/07/19 12:05 Vancomycin HCl (Vanco rx to dose) 1 ea DAILY PRN MISC Per rx protocol 08/07/19 08:00 09/06/19 07:59 Vancomycin HCl 1 gm/Sodium Chloride 275 ml @ 183.708 mls/hr Q12H IVPB 08/07/19 16:00 08/12/19 15:59 Assessment/Plan Problem List: (1) HTN (hypertension) ICD Codes: I10 - Essential (primary) hypertension SNOMED: 96315925 (2) ALFONSO (acute kidney injury) ICD Codes: N17.9 - Acute kidney failure, unspecified SNOMED: 0083029, 62263022 (3) Cellulitis of left foot ICD Codes: L03.116 - Cellulitis of left lower limb; L97.509 - Non-pressure chronic ulcer of other part of unspecified foot with unspecified severity SNOMED: 287786704, 63325454 (4) Diastolic CHF ICD Codes: I50.30 - Unspecified diastolic (congestive) heart failure SNOMED: 47719546, 241805228 (5) Cellulitis of right lower extremity ICD Codes: L03.115 - Cellulitis of right lower limb SNOMED: 432555875 (6) Uncontrolled type 2 DM with peripheral circulatory disorder ICD Codes: E11.51 - Type 2 diabetes mellitus with diabetic peripheral angiopathy without gangrene; E11.65 - Type 2 diabetes mellitus with hyperglycemia SNOMED: 42999655, 545415121, 072311426 (7) Diabetic ulcer of right foot ICD Codes: E11.621 - Type 2 diabetes mellitus with foot ulcer; L97.519 - Non- pressure chronic ulcer of other part of right foot with unspecified severity SNOMED: 75180714, 364448384 Status: doing well, stable Assessment/Plan: #Left foot ulcer #Diabetic foot ulcer #Healing right foot ulcer -ID, general surgery consult appreciated. -Xray ordered. -Okay to ambulate -Continue empiric abx (vanc/zosyn 3/2 -) for now #DM2 -Continue RISS, POCT. #BPH -Continue home Flomax #HLD #HTN -Continue home Losartan. #?CKD3 #?ALFONSO -Trend BMP Extra 36 minutes spent on chart review of pertinent patient information, including prior labs, imaging, physician/[facility] [place] consultant notes, medications, etc. Victor Manuel Mohr M.D. Aug 07, 2019 13:38
--- NOTE | 2019-08-07 15:05 | NUR ---
HAND-OFF: Report given to Basilio ROCHA. Plan of care endorsed. Patient is stable.
[2019-08-07 15:54] VITALS: BP 119/76
[2019-08-07] MEDS: Vancomycin 1 GM in NS 275 ML IVPB SCH (16:21)
--- NOTE | 2019-08-07 19:30 | NUR ---
HAND-OFF: Report given to Magalis RN. Patient in stable condition.
--- NOTE | 2019-08-07 19:30 | NUR ---
NURSE NOTES: Receive a report from AJ Richmond. Round is done. Pt is awake and alert. No acute distress noted. Pt feels refreshing after taking a shower. Kept dressing on both feet dry and clean. Pain is tolerating. Call light within reach. Will continue to monitor.
[2019-08-07 20:00] VITALS: BP 132/85
[2019-08-07] MEDS: Atorvastatin 80mg tab ORAL SCH (21:20)
[2019-08-08] VITALS: BP 128/81
[2019-08-08] MEDS: Vancomycin 1 GM in NS 275 ML IVPB SCH (03:43)
[2019-08-08 04:00] VITALS: BP 127/80
[2019-08-08] MEDS: Piperacillin/Tazobactam 3.375 GM in NS 110 ML IVPB SCH ×3 (05:29→21:35)
[2019-08-08] MEDS: NovoLOG Insulin Flexpen SUBQ SCH ×4 (06:35→21:33)
--- NOTE | 2019-08-08 07:30 | NUR ---
HAND-OFF: Report given to AJ Mendoza.
[2019-08-08 08:00] VITALS: BP 132/88
--- NOTE | 2019-08-08 08:03 | NUR ---
NURSE NOTES: AWAKE/ALERT. PAIN SCALE 8/10. OFFERED TYLENOL FOR PAIN BUT REFUSED. IN NO ACUTE DISTRESS.
[2019-08-08 08:29] LABS: BASOPHILS % (AUTO) 1.6 % (0.0-2.0); EOSINOPHILS % (AUTO) 7.1 % (0.0-3.0); HEMATOCRIT 35.1 % (42.0-52.0); HEMOGLOBIN 12.2 G/DL (14.2-18.0); LYMPHOCYTES % (AUTO) 15.8 % (20.0-45.0); MEAN CORPUSCULAR VOLUME 84 FL (80-99); MONOCYTES % (AUTO) 11.2 % (1.0-10.0); NEUTROPHILS % (AUTO) 64.3 % (45.0-75.0); PLATELET COUNT 300 K/UL (150-450); RED BLOOD COUNT 4.19 M/UL (4.70-6.10); RED CELL DISTRIBUTION WIDTH 12.4 % (11.6-14.8); WHITE BLOOD COUNT 4.9 K/UL (4.8-10.8)
[2019-08-08 08:37] LABS: ANION GAP 12 mmol/L (5-15); BLOOD UREA NITROGEN 11 mg/dL (7-18); CALCIUM 8.9 MG/DL (8.5-10.1); CARBON DIOXIDE 24 MMOL/L (21-32); CHLORIDE 103 MMOL/L (98-107); CREATININE 1.2 MG/DL (0.55-1.30); POTASSIUM 4.2 MMOL/L (3.5-5.1); SODIUM 138 MMOL/L (136-145)
[2019-08-08] MEDS: Docusate 100mg cap ORAL SCH ×2 (08:38→21:25)
[2019-08-08] MEDS: Tamsulosin 0.4mg cap ORAL SCH (08:38)
[2019-08-08] MEDS: Losartan 50mg tab ORAL SCH (08:38)
[2019-08-08] MEDS: Enoxaparin 40mg Inj SUBQ SCH (08:41)
[2019-08-08 11:22] VITALS: BP 138/92
--- NOTE | 2019-08-08 14:05 | General Progress Note ---
Assessment/Plan Problem List: (1) HTN (hypertension) ICD Codes: I10 - Essential (primary) hypertension SNOMED: 51605574 (2) ALFONSO (acute kidney injury) ICD Codes: N17.9 - Acute kidney failure, unspecified SNOMED: 8788114, 39951391 (3) Cellulitis of left foot ICD Codes: L03.116 - Cellulitis of left lower limb; L97.509 - Non-pressure chronic ulcer of other part of unspecified foot with unspecified severity SNOMED: 113099069, 18104834 (4) Diastolic CHF ICD Codes: I50.30 - Unspecified diastolic (congestive) heart failure SNOMED: 51865522, 811992668 (5) Cellulitis of right lower extremity ICD Codes: L03.115 - Cellulitis of right lower limb SNOMED: 573412858 (6) Uncontrolled type 2 DM with peripheral circulatory disorder ICD Codes: E11.51 - Type 2 diabetes mellitus with diabetic peripheral angiopathy without gangrene; E11.65 - Type 2 diabetes mellitus with hyperglycemia SNOMED: 62123601, 918882359, 779646242 (7) Diabetic ulcer of right foot ICD Codes: E11.621 - Type 2 diabetes mellitus with foot ulcer; L97.519 - Non- pressure chronic ulcer of other part of right foot with unspecified severity SNOMED: 42729282, 258196598 Status: doing well, stable Assessment/Plan: #Left foot ulcer #Diabetic foot ulcer #Healing right foot ulcer -ID, general surgery consult appreciated. -Xray without evidence of osteom. -Okay to ambulate -Continue empiric abx (vanc/zosyn 3/2 -) for now. -d/w with ID, [facility] to [facility]x. -Social work consult placed./ #DM2 -Continue RISS, POCT. #BPH -Continue home Flomax #HLD #HTN -Continue home Losartan. #?CKD3 #?ALFONSO -Trend BMP Time spent on encounter: 37 minutes, >50% on counseling, coordination of care. Time of note doesn't reflect time of encounter. Subjective Date patient seen: Aug 08, 2019 Time patient seen: 14:00 ROS Limited/Unobtainable: No Constitutional: Denies: no symptoms, chills, diaphoresis, fever, malaise, weakness, other HEENT: Denies: no symptoms, eye pain, blurred vision, tearing, double vision, ear pain, ear discharge, nose pain, nose congestion, throat pain, throat swelling, mouth pain, mouth swelling, other Cardiovascular: Denies: no symptoms, chest pain, edema, irregular heart rate, lightheadedness, palpitations, syncope, other Respiratory: Denies: no symptoms, cough, orthopnea, shortness of breath, SOB with excertion, SOB at rest, sputum, stridor, wheezing, other Gastrointestinal/Abdominal: Denies: no symptoms, abdomen distended, abdominal pain, black stools, tarry stools, blood in stool, constipated, diarrhea, difficulty swallowing, nausea, poor appetite, poor fluid intake, rectal bleeding , vomiting, other Genitourinary: Denies: no symptoms, burning, discharge, frequency, flank pain, hematuria, incontinence, pain, urgency, other Neurologic/Psychiatric: Denies: no symptoms, anxiety, depressed, emotional problems, headache, numbness, paresthesia, pre-existing deficit, seizure, tingling, tremors, weakness, other Endocrine: Denies: no symptoms, excessive sweating, flushing, intolerance to cold, intolerance to heat, increased hunger, increased thirst, increased urine, unexplained weight gain, unexplained weight loss, other Hematologic/Lymphatic: Denies: no symptoms, anemia, easy bleeding, easy bruising, other Allergies: Coded Allergies: No Known Allergies (Unverified , 07/17/19) Subjective resting on edge of bed, pain improved with meds and abx. confirms [facility] came from [facility]. Objective Last 24 Hour Vital Signs Date Time Temp Pulse Resp B/P (MAP) Pulse Ox O2 Delivery O2 Flow Rate FiO2 08/08/19 11:22 98.9 100 18 138/92 (107) 98 08/08/19 09:31 Room Air 08/08/19 08:38 132/88 08/08/19 08:00 98.3 87 20 132/88 (103) 98 08/08/19 07:35 84 20 96 Room Air 21 08/08/19 04:00 98.4 92 20 127/80 (96) 97 08/08/19 00:00 98.9 95 20 128/81 (97) 99 08/07/19 21:00 Room Air 08/07/19 20:00 90 18 95 Room Air 21 08/07/19 20:00 97.4 77 20 132/85 (101) 97 08/07/19 15:54 98.0 99 20 119/76 (90) 96 Intake and Output 08/07/19 08/08/19 19:00 07:00 Intake Total 250 ml Output Total 1100 ml Balance -850 ml Intake Oral 250 ml Output Urine Total 1100 ml # Voids 3 # Bowel Movements 1 Laboratory Tests 08/08/19 07:15: White Blood Count 4.9, Red Blood Count 4.19L, Hemoglobin 12.2L, Hematocrit 35.1L , Mean Corpuscular Volume 84, Mean Corpuscular Hemoglobin 29.1, Mean Corpuscular Hemoglobin Concent 34.8, Red Cell Distribution Width 12.4, Platelet Count 300, Mean Platelet Volume 5.8L, Neutrophils (%) (Auto) 64.3, Lymphocytes ( %) (Auto) 15.8L, Monocytes (%) (Auto) 11.2H, Eosinophils (%) (Auto) 7.1H, Basophils (%) (Auto) 1.6, Sodium Level 138, Potassium Level 4.2, Chloride Level 103, Carbon Dioxide Level 24, Anion Gap 12, Blood Urea Nitrogen 11, Creatinine 1.2, Estimat Glomerular Filtration Rate > 60, Glucose Level 218#H, Calcium Level 8.9 Height (Feet): 6 Height (Inches): 2.00 Weight (Pounds): 230 General Appearance: alert Neck: supple Cardiovascular: normal rate, regular rhythm Respiratory/Chest: lungs clear, normal breath sounds Abdomen: non tender, soft Neurologic: alert, oriented x 3 Victor Manuel Mohr M.D. Aug 08, 2019 14:05
--- NOTE | 2019-08-08 14:25 | NUR ---
LICENSED STAFF MFT NOTE Pt was seen by ERASMO Terrell on 08/07/2019. SW met w/ pt to clarify DC plan. Pt presents as A&O4x. PT plans to go to [place] w/ his friend Kayla Moulton [phone]. Per pt, Kayla is finishing his work in [place] and he will p/u pt and drive to [place]. Pt has a few friends in [place]. Pt did not provide a specific location/address. PT does not have any concerns/needs/ questions except medication. SW encouraged pt to inquire such question to RN/MD. PT verbalized understanding. Signed: 08/08/19 at 1432 by TIARA DAVE <Co-Signature Required>
--- NOTE | 2019-08-08 15:59 | Surgery Progress Note ---
Surgery Progress Note Subjective Symptoms: improved, tolerating diet, voiding well, passing flatus, BM, pain decreased Objective Last 24 Hour Vital Signs Date Time Temp Pulse Resp B/P (MAP) Pulse Ox O2 Delivery O2 Flow Rate FiO2 08/08/19 11:22 98.9 100 18 138/92 (107) 98 08/08/19 09:31 Room Air 08/08/19 08:38 132/88 08/08/19 08:00 98.3 87 20 132/88 (103) 98 08/08/19 07:35 84 20 96 Room Air 21 08/08/19 04:00 98.4 92 20 127/80 (96) 97 08/08/19 00:00 98.9 95 20 128/81 (97) 99 08/07/19 21:00 Room Air 08/07/19 20:00 90 18 95 Room Air 21 08/07/19 20:00 97.4 77 20 132/85 (101) 97 I&O Intake and Output 08/07/19 08/08/19 19:00 07:00 Intake Total 250 ml Output Total 1100 ml Balance -850 ml Intake Oral 250 ml Output Urine Total 1100 ml # Voids 3 # Bowel Movements 1 Dressing: dry Wound: clean Cardiovascular: RSR Respiratory: clear Abdomen: soft, non-tender, present bowel sounds Extremities: edema, tenderness, no cyanosis, pulses, other Laboratory Tests Test 08/08/19 07:15 08/08/19 15:00 White Blood Count 4.9 K/UL (4.8-10.8) Red Blood Count 4.19 M/UL (4.70-6.10) L Hemoglobin 12.2 G/DL (14.2-18.0) L Hematocrit 35.1 % (42.0-52.0) L Mean Corpuscular Volume 84 FL (80-99) Mean Corpuscular Hemoglobin 29.1 PG (27.0-31.0) Mean Corpuscular Hemoglobin Concent 34.8 G/DL (32.0-36.0) Red Cell Distribution Width 12.4 % (11.6-14.8) Platelet Count 300 K/UL (150-450) Mean Platelet Volume 5.8 FL (6.5-10.1) L Neutrophils (%) (Auto) 64.3 % (45.0-75.0) Lymphocytes (%) (Auto) 15.8 % (20.0-45.0) L Monocytes (%) (Auto) 11.2 % (1.0-10.0) H Eosinophils (%) (Auto) 7.1 % (0.0-3.0) H Basophils (%) (Auto) 1.6 % (0.0-2.0) Sodium Level 138 MMOL/L (136-145) Potassium Level 4.2 MMOL/L (3.5-5.1) Chloride Level 103 MMOL/L (98-107) Carbon Dioxide Level 24 MMOL/L (21-32) Anion Gap 12 mmol/L (5-15) Blood Urea Nitrogen 11 mg/dL (7-18) Creatinine 1.2 MG/DL (0.55-1.30) Estimat Glomerular Filtration Rate > 60 mL/min (>60) Glucose Level 218 MG/DL (74-106) #H Calcium Level 8.9 MG/DL (8.5-10.1) Vancomycin Level Trough Pending Plan Problems: (1) Cellulitis of left foot Assessment & Plan: 54-year-old male with history of right lower extremity cellulitis which was treated and patient discharged safely was not fully compliant with his medication regimen and presented now with left lower extremity cellulitis. States right lower extremity cellulitis improving but has been walking a lot and developed a blister that is now open draining in his left foot. Admitted for further care and management. Labs noted, exam performed, care plan initiated. Patient states he is now walking around but does keep his feet protected. He is noncompliant and uncontrolled diabetic glucose 300s on admission. Right lower extremity cellulitis has improved significantly since last admission. On the left lower extremity plantar aspect distal metatarsal 3 cm 3 cm open blister tender uncomfortable serous drainage no purulent drainage no underlying abscess identified. Plain films noted Okay for diet Wash wound on left lower extremity plantar aspect daily with normal saline apply Xeroform followed by gauze dressing. Okay for socks. Okay to ambulate. Will monitor while inpatient. ID input appreciated Thank you for let me participate in patient's care. We will follow with recommendations. Findings: 3 views of the left foot were obtained. No acute fractures, malalignment, erosions or periostitis are identified. Mild soft tissue swelling is present. There is a plantar calcaneal spur. Impression: No acute fracture. Mild soft tissue swelling Jasvir Mclaughlin Aug 08, 2019 15:59
[2019-08-08 16:00] VITALS: BP 135/81
--- NOTE | 2019-08-08 16:05 | NUR ---
CASE MANAGEMENT: INITIAL REVIEW 54YR OLD MALE FROM HOME CC: SKIN RASH / ABSCESS X3 DAYS SI: CELLULITIS / INFECTED LEFT DIABETIC FOOT ULCER 97.8 115 16 148/94 98% ON RA NA+134 BG 335 C-RP 2.8 (+) COCAINE IS:IV ZOSYN X1 IV VANCOMYCIN X1 X-RAY FOOT- Mild soft tissue swelling \: 3E MED SURG UNIT CASE MANAGEMENT: REVIEW 08/08/19 SI: CELLULITIS / INFECTED LEFT DIABETIC FOOT ULCER 98.3 87 20 132/88 98% ON RA BG 218 IS:IV ZOSYN Q8HR IV VANCOMYCIN Q8HR LOVENOX SQ QD COZAAR PO QD FLOMAX PO QD LIPITOR PO QHS NOVOLOG SQ AC&HS \: 3E MED SURG UNIT PLAN: DRESSING CHANGES TEACHING DIABETIC TEACHING
--- NOTE | 2019-08-08 17:35 | Infectious Diseases Prog Note ---
Assessment/Plan Assessment/Plan Full consult dictated: A) 1) left foot cellulitis, wound fairly clean, x-ray - no osteo 2) hx right leg cellulitis overall improved 3) pmh noted 4) allergies - nkda P) 1) vancomycin and zosyn 2) consider transition to oral keflex and doxycycline x one week 3) previous admission was treated with bactrim and augmentin - ? resistance 4) communicated with Dr. Mohr Subjective Allergies: Coded Allergies: No Known Allergies (Unverified , 07/17/19) Objective Vital Signs Last 24 Hour Vital Signs Date Time Temp Pulse Resp B/P (MAP) Pulse Ox O2 Delivery O2 Flow Rate FiO2 08/08/19 16:00 98.5 93 20 135/81 (99) 97 08/08/19 11:22 98.9 100 18 138/92 (107) 98 08/08/19 09:31 Room Air 08/08/19 08:38 132/88 08/08/19 08:00 98.3 87 20 132/88 (103) 98 08/08/19 07:35 84 20 96 Room Air 21 08/08/19 04:00 98.4 92 20 127/80 (96) 97 08/08/19 00:00 98.9 95 20 128/81 (97) 99 08/07/19 21:00 Room Air 08/07/19 20:00 90 18 95 Room Air 21 08/07/19 20:00 97.4 77 20 132/85 (101) 97 Height (Feet): 6 Height (Inches): 2.00 Weight (Pounds): 230 Laboratory Tests Test 08/08/19 07:15 08/08/19 15:00 White Blood Count 4.9 K/UL (4.8-10.8) Red Blood Count 4.19 M/UL (4.70-6.10) L Hemoglobin 12.2 G/DL (14.2-18.0) L Hematocrit 35.1 % (42.0-52.0) L Mean Corpuscular Volume 84 FL (80-99) Mean Corpuscular Hemoglobin 29.1 PG (27.0-31.0) Mean Corpuscular Hemoglobin Concent 34.8 G/DL (32.0-36.0) Red Cell Distribution Width 12.4 % (11.6-14.8) Platelet Count 300 K/UL (150-450) Mean Platelet Volume 5.8 FL (6.5-10.1) L Neutrophils (%) (Auto) 64.3 % (45.0-75.0) Lymphocytes (%) (Auto) 15.8 % (20.0-45.0) L Monocytes (%) (Auto) 11.2 % (1.0-10.0) H Eosinophils (%) (Auto) 7.1 % (0.0-3.0) H Basophils (%) (Auto) 1.6 % (0.0-2.0) Sodium Level 138 MMOL/L (136-145) Potassium Level 4.2 MMOL/L (3.5-5.1) Chloride Level 103 MMOL/L (98-107) Carbon Dioxide Level 24 MMOL/L (21-32) Anion Gap 12 mmol/L (5-15) Blood Urea Nitrogen 11 mg/dL (7-18) Creatinine 1.2 MG/DL (0.55-1.30) Estimat Glomerular Filtration Rate > 60 mL/min (>60) Glucose Level 218 MG/DL (74-106) #H Calcium Level 8.9 MG/DL (8.5-10.1) Vancomycin Level Trough Pending Current Medications Medications (Trade) Dose Ordered Sig/Gaurav Route PRN Reason Start Time Stop Time Status Last Admin Dose Admin Acetaminophen (Tylenol) 650 mg Q4H PRN ORAL Mild Pain (Pain Scale 1-3) 08/07/19 07:45 09/06/19 07:44 Acetaminophen (Tylenol) 650 mg Q4H PRN ORAL fever 08/07/19 07:45 09/06/19 07:44 Albuterol/ Ipratropium (Albuterol/ Ipratropium) 3 ml QID PRN HHN Shortness of Breath 08/07/19 07:45 08/12/19 07:44 Atorvastatin Calcium (Lipitor) 40 mg BEDTIME ORAL 08/07/19 21:00 09/06/19 20:59 08/07/19 21:20 Dextrose (Dextrose 50%) 25 ml Q30M PRN IV Hypoglycemia 08/07/19 08:00 09/06/19 07:59 Dextrose (Dextrose 50%) 50 ml Q30M PRN IV Hypoglycemia 08/07/19 08:00 09/06/19 07:59 Diphenhydramine HCl (Benadryl) 25 mg Q6H PRN ORAL Itching/Pruritis 08/07/19 07:45 09/06/19 07:44 Docusate Sodium (Colace) 100 mg EVERY 12 HOURS ORAL 08/07/19 09:00 09/06/19 08:59 08/08/19 08:38 Enoxaparin Sodium (Lovenox) 40 mg Q24H SUBQ 08/07/19 09:00 09/06/19 08:59 08/08/19 08:41 Famotidine (Pepcid) 40 mg DAILY ORAL 08/07/19 09:00 09/06/19 08:59 08/08/19 08:38 Hydromorphone HCl (Dilaudid) 2 mg Q4H PRN IVP Severe Pain (Pain Scale 7-10) 08/07/19 07:45 08/14/19 07:44 Insulin Aspart (NovoLOG) BEFORE MEALS AND HS SUBQ 08/07/19 11:30 09/06/19 11:29 08/08/19 17:19 Losartan Potassium (Cozaar) 100 mg DAILY ORAL 08/08/19 09:00 09/07/19 08:59 08/08/19 08:38 Magnesium Hydroxide (Mom) 30 ml HSPRN PRN ORAL Constipation 08/07/19 07:45 09/06/19 07:44 Ondansetron HCl (Zofran) 4 mg Q6H PRN IVP Nausea & Vomiting 08/07/19 07:45 09/06/19 07:44 Piperacillin Sod/ Tazobactam Sod 3.375 gm/Sodium Chloride 110 ml @ 27.5 mls/hr Q8H IVPB 08/07/19 12:00 08/14/19 11:59 08/08/19 11:28 Tamsulosin HCl (Flomax) 0.4 mg DAILY ORAL 08/08/19 09:00 09/07/19 08:59 08/08/19 08:38 Vancomycin HCl (Vanco rx to dose) 1 ea DAILY PRN MISC Per rx protocol 08/07/19 08:00 09/06/19 07:59 Vancomycin HCl 1 gm/Sodium Chloride 275 ml @ 183.708 mls/hr Q12H IVPB 08/07/19 16:00 08/12/19 15:59 08/08/19 03:43 Shannan Gr MD Aug 08, 2019 17:35
--- NOTE | 2019-08-08 19:00 | NUR ---
NURSE NOTES: CONDITION STABLE . IN NO DISTRESS.
--- NOTE | 2019-08-08 19:30 | NUR ---
NURSE NOTES: Receive a report from AJ Mendoza. Pt is awake and alert,talking on the phone. No acute distress noted. Dressing on both feet kept dry and clean. On ATB treatment. Call light within reach. Will continue to monitor.
--- NOTE | 2019-08-08 19:45 | Consultation ---
DATE OF CONSULTATION: 08/08/2019 INFECTIOUS DISEASE CONSULTATION CONSULTING PHYSICIAN: Shannan Gr M.D. ATTENDING PHYSICIAN: Yesica Obando M.D. REFERRING PHYSICIAN: Victor Manuel Mohr M.D. REASON FOR CONSULTATION: Left foot wound and ulcer, possible infection and cellulitis and history of right leg cellulitis. CHIEF COMPLAINT: The patient's chief complaint coming to the hospital is left foot cellulitis, possible infected wound, and ulcer of left foot. HISTORY OF PRESENT ILLNESS: This is a very pleasant 54-year-old male who had a previous admission for right lower extremity cellulitis, was treated with antibiotics and improved. The patient at that time was discharged on Augmentin and Bactrim for 5 days. The patient has recurrent cellulitis; however, at this time, it is in the left foot. He still has some residual right leg cellulitis. Left foot has redness and warmth and the base of the foot has a ulcer and wound that looks fairly clean. Question if it is infected. Infectious Disease consultation was requested for antibiotic management. He is currently on Vanco and Zosyn. MAR was noted. Orders were noted. Notes reviewed. REVIEW OF SYSTEMS: Main issue was left foot pain, wound and also right leg pain. He has no fevers or chills.HEAD AND NECK: No thrush or dysphagia. No mention of headache. CARDIAC: No chest pain. GASTROINTESTINAL: No nausea, vomiting, or diarrhea. GENITOURINARY: No dysuria or frequency. PULMONARY: No shortness of breath. PAST MEDICAL HISTORY: The patient has a past medical history of diabetes, hypertension, dyslipidemia. He has a history of right foot toe amputation, history of right leg cellulitis. He has history of BPH, chronic kidney disease, history of acute kidney disease. ALLERGIES: No known drug allergies. SOCIAL HISTORY: Negative for smoking, alcohol, drug abuse. FAMILY HISTORY: Noncontributory. MEDICATIONS: Upon reviewing the MAR, he is on following medications. He is on Vanco, Zosyn, Flomax, atorvastatin, insulin, aspirin, famotidine, docusate, IV fluids, acetaminophen, hydromorphone, diphenhydramine, Zofran. Outside medications noted and reconciliated. PHYSICAL EXAMINATION: VITAL SIGNS: Temperature 98.5, pulse rate 93, respiratory rate 20, blood pressure is 135/81, saturation 97%. GENERAL: Alert, responsive, oriented x3. No acute distress. HEAD AND NECK: Oral exam, no thrush. Eye exam, no icterus. Normocephalic. Neck is supple. HEART: Regular. ABDOMEN: Soft. Positive bowel sounds. Nontender. LUNGS: Clear bilaterally. No rhonchi or rales. SKIN: No rash. MUSCULOSKELETAL: no effusions. No septic arthritis. EXTREMITIES: Lower extremity exam, his right leg cellulitis compared to yesterday is improved from previous admission. His left foot cellulitis, redness, and warmth is improved. Base of the left foot of the wound is clean and dry. No gangrene noted. LINES: Line sites without phlebitis. GENITOURINARY: No Castellanos. NEUROLOGIC: Intact. LABORATORY DATA: White count 4.9, hemoglobin 12.2. Creatinine 1.2. The patient was positive drug screen for cocaine. UA was 0 white cells. IMAGING STUDIES: X-ray of the left foot shows soft tissue swelling that is mild. There is no fracture or osteo mentioned. There was no wound culture done. ASSESSMENT AND PLAN: 1. The patient has left foot cellulitis. Also history of right leg cellulitis with residual cellulitis to the right leg. This is improving on antibiotics, IV Vanco and Zosyn. The patient was previously treated with Augmentin and Bactrim as an outpatient. Assume resistance if MRSA is considered as a pathogen here and Augmentin for gram-negative coverage. At this time, we will continue Vanco and Zosyn. We can transition to oral Keflex and doxycycline to cover the left foot cellulitis and right leg cellulitis. His left foot wound and ulcer looks fairly clean. X-ray showed no osteo. Clinically, it is very superficial wound. Continue Vanco and Zosyn. Again, can transition to oral Keflex and doxy for another week. 2. Hypertension. 3. History of renal failure. Avoid nephrotoxic drugs such as Bactrim. 4. Diabetes. 5. BPH. 6. CHF. 7. Diabetes and hypertension per primary care team. 8. Allergies are negative. 9. Social history negative. 10. Family history is noncontributory. 11. MAR was noted. 12. Case discussed with RN. 13. Continue treatment per primary consultants. 14. Orders were noted and entered. Shannan Gr M.D. DR: DIANA JOB#: [id number] CC: EWA
--- NOTE | 2019-08-08 19:51 | NUR ---
HAND-OFF: Report given to OH RN.
[2019-08-08] MEDS: Vancomycin 1.25gm/NS Premix q24h IVPB SCH (19:57)
[2019-08-08 20:00] VITALS: BP 137/86
[2019-08-08] MEDS: Atorvastatin 80mg tab ORAL SCH (21:26)
[2019-08-09] VITALS: BP 128/87
[2019-08-09 04:00] VITALS: BP 132/84
[2019-08-09] MEDS: Piperacillin/Tazobactam 3.375 GM in NS 110 ML IVPB SCH ×2 (04:42→12:35)
[2019-08-09] MEDS: NovoLOG Insulin Flexpen SUBQ SCH ×2 (06:19→12:01)
[2019-08-09 06:33] LABS: BASOPHILS % (AUTO) 1.8 % (0.0-2.0); EOSINOPHILS % (AUTO) 7.4 % (0.0-3.0); HEMATOCRIT 37.1 % (42.0-52.0); HEMOGLOBIN 12.5 G/DL (14.2-18.0); LYMPHOCYTES % (AUTO) 20.9 % (20.0-45.0); MEAN CORPUSCULAR VOLUME 84 FL (80-99); MONOCYTES % (AUTO) 9.6 % (1.0-10.0); NEUTROPHILS % (AUTO) 60.3 % (45.0-75.0); PLATELET COUNT 299 K/UL (150-450); RED BLOOD COUNT 4.43 M/UL (4.70-6.10); WHITE BLOOD COUNT 4.2 K/UL (4.8-10.8)
--- NOTE | 2019-08-09 07:00 | NUR ---
NURSE NOTES: No acute distress noted. Pt might discharge today. Dressing on right foot got removed. Show how to change dressing and provide supplies. Will endorse AM nurse to follow up.
[2019-08-09 07:27] LABS: ANION GAP 13 mmol/L (5-15); BLOOD UREA NITROGEN 11 mg/dL (7-18); CALCIUM 8.8 MG/DL (8.5-10.1); CARBON DIOXIDE 24 MMOL/L (21-32); CHLORIDE 107 MMOL/L (98-107); CREATININE 1.2 MG/DL (0.55-1.30); POTASSIUM 4.2 MMOL/L (3.5-5.1); SODIUM 144 MMOL/L (136-145)
--- NOTE | 2019-08-09 07:50 | NUR ---
HAND-OFF: Report given to AJ Collins. Round is done.
[2019-08-09 08:00] VITALS: BP 115/75
--- NOTE | 2019-08-09 08:23 | NUR ---
NURSE NOTES: Received patient in bed asleep. No SOB or acute distress. IV line intact and patent. Wound dressings intact. HOB elevated. Bed locked in lowest position. Call light within reach. Will continue plan of care.
[2019-08-09] MEDS: Vancomycin 1.25gm/NS Premix q24h IVPB SCH (08:46)
[2019-08-09] MEDS: Docusate 100mg cap ORAL SCH (08:46)
[2019-08-09] MEDS: Tamsulosin 0.4mg cap ORAL SCH (08:47)
[2019-08-09] MEDS: Enoxaparin 40mg Inj SUBQ SCH (08:49)
[2019-08-09] MEDS: Losartan 50mg tab ORAL SCH (09:00)
[2019-08-09 12:00] VITALS: BP 144/91
--- NOTE | 2019-08-09 13:17 | Discharge Summary ---
Discharge Summary Hospital Course Date of Admission Aug 07, 2019 at 04:03 Date of Discharge 08/09/2019 Admitting Diagnosis infected left diabetic foot ulcer HPI Shankar Page is a 54 year old male who was admitted on Aug 07, 2019 at 04 :03 for Infected Left Diabetic Foot Ulcer Consultations infectious disease, general surgery Hospital Course He was evaluated by general surgery and ID for his RLE cellulitis and diabetic foot ulcer. Imaging was negative for osteomyelitis. His symptoms improved significantly with abx, per ID recs. Today, he is being d/c'ed home(homeless half-way) with 1 more week of PO Keflex + doxycycline, again per ID recs. Discharge Condition Upon Discharge: stable Discharge Vital Signs Last Vital Signs Date Time Temp Pulse Resp B/P (MAP) Pulse Ox O2 Delivery O2 Flow Rate FiO2 08/09/19 12:00 98.4 82 19 144/91 (108) 97 08/09/19 09:00 Room Air 08/09/19 07:49 21 Discharge Disposition Patient was discharged to Discharge Diagnoses: (1) Cellulitis of left foot (2) Diabetic foot ulcer (3) Poorly controlled diabetes mellitus Victor Manuel Mohr M.D. Aug 09, 2019 13:17
[2019-08-09] MEDS ORDERED: CEPHALEXIN250 MG ORAL ×2 (14:27→14:29)
--- NOTE | 2019-08-09 14:43 | Surgery Progress Note ---
Surgery Progress Note Subjective Symptoms: improved, tolerating diet, passing flatus, BM, pain decreased Objective Last 24 Hour Vital Signs Date Time Temp Pulse Resp B/P (MAP) Pulse Ox O2 Delivery O2 Flow Rate FiO2 08/09/19 12:00 98.4 82 19 144/91 (108) 97 08/09/19 09:00 115/75 08/09/19 09:00 Room Air 08/09/19 08:00 97.9 91 19 115/75 (88) 94 08/09/19 07:49 93 18 94 Room Air 21 08/09/19 04:00 97.8 88 20 132/84 (100) 97 08/09/19 00:00 98.6 83 20 128/87 (101) 97 08/08/19 21:00 Room Air 08/08/19 20:07 91 18 95 Room Air 21 08/08/19 20:00 99.1 108 20 137/86 (103) 97 08/08/19 16:00 98.5 93 20 135/81 (99) 97 I&O Intake and Output 08/08/19 08/09/19 19:00 07:00 Intake Total 1150 ml Output Total 1200 ml Balance 1150 ml -1200 ml Intake Oral 1150 ml Output Urine Total 1200 ml # Voids 2 # Bowel Movements 1 Dressing: dry Wound: clean Cardiovascular: RSR Respiratory: clear Abdomen: soft, non-tender, present bowel sounds Extremities: no tenderness, no cyanosis, other Laboratory Tests Test 08/08/19 15:00 08/09/19 05:20 Vancomycin Level Trough 9.6 ug/mL (5.0-12.0) White Blood Count 4.2 K/UL (4.8-10.8) L Red Blood Count 4.43 M/UL (4.70-6.10) L Hemoglobin 12.5 G/DL (14.2-18.0) L Hematocrit 37.1 % (42.0-52.0) L Mean Corpuscular Volume 84 FL (80-99) Mean Corpuscular Hemoglobin 28.1 PG (27.0-31.0) Mean Corpuscular Hemoglobin Concent 33.6 G/DL (32.0-36.0) Red Cell Distribution Width 12.0 % (11.6-14.8) Platelet Count 299 K/UL (150-450) Mean Platelet Volume 5.9 FL (6.5-10.1) L Neutrophils (%) (Auto) 60.3 % (45.0-75.0) Lymphocytes (%) (Auto) 20.9 % (20.0-45.0) Monocytes (%) (Auto) 9.6 % (1.0-10.0) Eosinophils (%) (Auto) 7.4 % (0.0-3.0) H Basophils (%) (Auto) 1.8 % (0.0-2.0) Sodium Level 144 MMOL/L (136-145) Potassium Level 4.2 MMOL/L (3.5-5.1) Chloride Level 107 MMOL/L (98-107) Carbon Dioxide Level 24 MMOL/L (21-32) Anion Gap 13 mmol/L (5-15) Blood Urea Nitrogen 11 mg/dL (7-18) Creatinine 1.2 MG/DL (0.55-1.30) Estimat Glomerular Filtration Rate > 60 mL/min (>60) Glucose Level 214 MG/DL (74-106) H Calcium Level 8.8 MG/DL (8.5-10.1) Plan Problems: (1) Cellulitis of left foot Assessment & Plan: 54-year-old male with history of right lower extremity cellulitis which was treated and patient discharged safely was not fully compliant with his medication regimen and presented now with left lower extremity cellulitis. States right lower extremity cellulitis improving but has been walking a lot and developed a blister that is now open draining in his left foot. Admitted for further care and management. Labs noted, exam performed, care plan initiated. Patient states he is now walking around but does keep his feet protected. He is noncompliant and uncontrolled diabetic glucose 300s on admission. Right lower extremity cellulitis has improved significantly since last admission. On the left lower extremity plantar aspect distal metatarsal 3 cm 3 cm open blister tender uncomfortable serous drainage no purulent drainage no underlying abscess identified. Plain films noted Okay for diet Wash wound on left lower extremity plantar aspect daily with normal saline apply Xeroform followed by gauze dressing. Okay for socks. Okay to ambulate. Will monitor while inpatient. ID input appreciated Thank you for let me participate in patient's care. We will follow with recommendations. Findings: 3 views of the left foot were obtained. No acute fractures, malalignment, erosions or periostitis are identified. Mild soft tissue swelling is present. There is a plantar calcaneal spur. Impression: No acute fracture. Mild soft tissue swelling d/c home f/u outpatient with wound care center Jasvir Carlos Aug 09, 2019 14:43
--- NOTE | 2019-08-09 15:55 | NUR ---
NURSE NOTES: Patient discharged ambulating with steady gait in stable condition accompanied by friend. Discharge instructions given, verbalized understanding. Patient verbalized he knows how to clean wound and change dressing, said he still had supplies for his wound, said he didn't need more. Medications filled by hospital pharmacy. Homeless checklist done. List of centers and resources given to patient. No new skin issues noted. IV line removed. ID band removed.
== END 2019-08-09 16:00 | disposition home or self-care (01) | DRG 380 ==
LOC: EMR 03:45 → 3E 04:03 → EDBEDREQ 05:30
DX: E11.621 Type 2 diabetes mellitus with foot ulcer (principal); L03.116 Cellulitis of left lower limb; L97.519 Non-pressure chronic ulcer of other part of right foot with unspecified severity; E11.65 Type 2 diabetes mellitus with hyperglycemia; N17.9 Acute kidney failure, unspecified; I11.0 Hypertensive heart disease with heart failure; I50.30 Unspecified diastolic (congestive) heart failure; E11.51 Type 2 diabetes mellitus with diabetic peripheral angiopathy without gangrene; N40.0 Benign prostatic hyperplasia without lower urinary tract symptoms; E78.5 Hyperlipidemia, unspecified; Z79.4 Long term (current) use of insulin
CPT/HCPCS: 36415; 80048; 80202; 80307; 81001; 82962; 85025; 85651; 86140; 87070; 87081; 87205; 94664; 96365; 96368; 99285; J1815; J7030